=== PATIENT | female | born 1995 | race Two or more races ===

== ENCOUNTER 2016-07-14 02:09 | Inpatient (IN) | payer OTHER ==
--- NOTE | 2016-07-14 02:38 | PDOC ---
History of Present Illness - General History Source: Patient Exam Limitations: No Limitations - History of Present Illness Initial Comments: 07/14/16 03:07 The patient is a 20 year old female with no significant past medical history who presents to the ED with complaints of right breast swelling and redness for 2 days. The patient reports she got bilateral nipple piercings 6 months ago. She reports redness in her right breast 2 days ago and she cleaned the affected area with water and soap. She sates her symptoms progressively worsened and developed right breast swelling and pain. She states she removed both nipple piercings today. Denies fevers or chills. Denies chest pain or shortness of breath. Denies abdominal pain, nausea, vomiting, or diarrhea. Denies any other symptoms. <Belinda Montoya - Last Filed: 07/14/16 03:06> <Mary Basurto - Last Filed: 07/17/16 22:32> - General Chief Complaint: Abscess Boil Stated Complaint: ABSCESS/CYST Past History <Belinda Montoya - Last Filed: 07/14/16 03:06> - Psycho/Social/Smoking Cessation Hx Suicidal Ideation: No Smoking History: Never smoked Have you smoked in the past 12 months: No Hx Alcohol Use: No Drug/Substance Use Hx: No <Mary Basurto - Last Filed: 07/17/16 22:32> - Past Medical History Allergies/Adverse Reactions: Allergies Allergy/AdvReac Type Severity Reaction Status Date / Time No Known Allergies Allergy Verified 07/14/16 02:48 Home Medications: Ambulatory Orders Acetaminophen [Tylenol .Regular Strength -] 650 mg PO Q6H PRN #0 tablet Amoxicillin/Potassium Clav [Augmentin 875-125 Tablet] 1 each PO BID #14 tablet 07/16/16 Review of Systems - Review of Systems Able to Perform ROS?: Yes Comments:: 07/14/16 03:07 CONSTITUTIONAL: Absent: fever, chills, diaphoresis, generalized weakness, malaise, loss of appetite HEENT: Absent: rhinorrhea, nasal congestion, throat pain, throat swelling, difficulty swallowing, mouth swelling, ear pain, eye pain, visual Changes CARDIOVASCULAR: Absent: chest pain, syncope, palpitations, irregular heart rate, lightheadedness , peripheral edema RESPIRATORY: Absent: cough, shortness of breath, dyspnea with exertion, orthopnea, wheezing, stridor, hemoptysis GASTROINTESTINAL: Absent: abdominal pain, abdominal distension, nausea, vomiting, diarrhea, constipation, melena, hematochezia GENITOURINARY: Absent: dysuria, frequency, urgency, hesitancy, hematuria, flank pain, genital pain MUSCULOSKELETAL: + breast swelling, breast pain Absent: arthralgia, joint swelling SKIN: + breast redness Absent: rash, itching, pallor HEMATOLOGIC/IMMUNOLOGIC: Absent: easy bleeding, easy bruising, lymphadenopathy, frequent infections ENDOCRINE: Absent: unexplained weight gain, unexplained weight loss, heat intolerance, cold intolerance NEUROLOGIC: Absent: headache, focal weakness or paresthesias, dizziness, unsteady gait, seizure, mental status changes, bladder or bowel incontinence PSYCHIATRIC: Absent: anxiety, depression, suicidal or homicidal ideation, hallucinations. <Belinda Montoya - Last Filed: 07/14/16 03:06> *Physical Exam - Vital Signs Last Vital Signs Temp Pulse Resp BP Pulse Ox 98.8 F 113 H 19 139/91 100 07/14/16 02:24 07/14/16 02:24 07/14/16 02:24 07/14/16 02:24 07/14/16 02:24 - Physical Exam Comments: 07/14/16 03:07 GENERAL: Well developed, well nourished. Awake and alert. No acute distress. HEENT: Normocephalic, atraumatic. PERRLA, EOMI. No conjunctival pallor. Sclera are non- icteric. Moist mucous membranes. Oropharynx is clear. NECK: Supple. Full ROM. No JVD. Carotid pulses 2+ and symmetric, without bruits. No thyromegaly. NCo lymphadenopathy. CARDIOVASCULAR: Regular rate and rhythm. No murmurs, rubs, or gallops. Distal pulses are 2+ and symmetric. PULMONARY: No evidence of respiratory distress. Lungs clear to auscultation bilaterally. No wheezing, rales or rhonchi. ABDOMINAL: Soft. Non-tender. Non-distended. No rebound or guarding. No organomegaly. Normoactive bowel sounds. MUSCULOSKELETAL Normal range of motion at all joints. No bony deformities or tenderness. No CVA tenderness. EXTREMITIES: No cyanosis. No clubbing. No edema. No calf tenderness. SKIN: + redness surrounding right nipple, no streaking, no abscess/fluctuance, no puss. Warm and dry. Normal capillary refill. No rashes. No jaundice. NEUROLOGICAL: Alert, awake, appropriate. Cranial nerves 2-12 intact. No deficits to light touch and temperature in face, upper extremities and lower extremities. No motor deficits in the in face, upper extremities and lower extremities. Normoreflexic in the upper and lower extremities. Normal speech. Toes are down- going bilaterally. Gait is normal without ataxia. PSYCHIATRIC: Cooperative. Good eye contact. Appropriate mood and affect. <Belinda Montoya - Last Filed: 07/14/16 03:06> - Vital Signs Last Vital Signs Temp Pulse Resp BP Pulse Ox 98.8 F 113 H 19 139/91 100 07/14/16 02:24 07/14/16 02:24 07/14/16 02:24 07/14/16 02:24 07/14/16 02:24 <Mary Basurto - Last Filed: 07/17/16 22:32> ED Treatment Course - LABORATORY CBC & Chemistry Diagram: 07/16/16 07:17 07/15/16 08:32 <Mary Basurto - Last Filed: 07/17/16 22:32> Medical Decision Making - Medical Decision Making 07/17/16 22:30 Pt comes with right breast infection; states that the pain and redness began 3 days ago. Pt removed her nipple rings today, and the infection appears worse. Likely deep infection, as there was foreign hardware in the tissues. Pt will be admitted for sonogram of the area, as well as for IV antibiotics to make sure that the infection is being controlled prior to discharge, and for surgical drainage as needed. Pus oozing from the area. Pt will be admitted to the hospitalist's service. <Mary Basurto - Last Filed: 07/17/16 22:32> *DC/Admit/Observation/Transfer - Attestations Scribe Attestion: 07/14/16 03:07 Documentation prepared by Belinda Montoya, acting as medical device sales for Mary Basurto MD <Belinda Montoya - Last Filed: 07/14/16 03:06> - Discharge Dispostion Admit: Yes <Mary Basurto - Last Filed: 07/17/16 22:32> Diagnosis at time of Disposition: Breast abscess, Breast infection - Discharge Dispostion Disposition: VNS/HOME HEALTH CARE Condition at time of disposition: Improved - Prescriptions
[2016-07-14] MEDS ORDERED: AMPICILLIN NA/SULBACTAM NA 1.5 GM in SODIUM CHLORIDE 100 ML IVPB ONE (03:01)
[2016-07-14 03:14] LABS: BASOPHIL 0.5 % (0-2.0); EOSINOPHIL 0.2 % (0-4.5); MCH 28.2 pg (25.7-33.7); MCHC 32.8 g/dl (32.0-36.0); MEAN CELL VOLUME 85.9 fl (80-96); MEAN PLT VOLUME 10.1 fl (7.5-11.1); PLATELET COUNT 177 K/MM3 (134-434); RDW 14.1 % (11.6-15.6); WHITE BLOOD COUNT 12.8 K/mm3 (4.0-10.0)
[2016-07-14 03:29] LABS: INR 1.22 (0.82-1.09); PROTHROMBIN TIME (PATIENT) 13.5 SEC (9.98-11.88)
[2016-07-14 03:35] LABS: ALBUMIN 4.2 g/dl (3.4-5.0); ANION GAP 11 (8-16); BILIRUBIN,TOTAL 0.8 mg/dL (0.2-1.0); CALCIUM 9.5 mg/dL (8.5-10.1); CO2 24 mmol/L (21-32); COCKROFT - GAULT 128.5115; CREATININE 0.6 mg/dL (0.55-1.02); GLUCOSE,RANDOM 98 mg/dL (74-106); SGOT/AST 12 U/L (15-37); SGPT/ALT 15 U/L (12-78); TOT PROT 7.6 g/dl (6.4-8.2)
[2016-07-14] MEDS ORDERED: morphine CARPU-JECT 2 MG/1 ML DISP.SYRIN IVPUSH ONE ×2 (03:35→05:05)
[2016-07-14 03:36] LABS: ALK PHOS 85 U/L (45-117)
[2016-07-14] MEDS ORDERED: morphine CARPU-JECT 2 MG/1 ML DISP.SYRIN ONE ×2 (03:42→05:31)
[2016-07-14] MEDS ORDERED: TETANUS AND DIPHTHERIA TOXOID 0.5 ML DISP.SYRIN IM ONE (05:21)
--- NOTE | 2016-07-14 05:28 | HP ---
CHIEF COMPLAINT: right breast pain PCP: Hui Jimenez HISTORY OF PRESENT ILLNESS: This is a 20 year old woman without significant past medical history who presents to the ED with complaints of right breast swelling and redness for 2 days. The patient reports she got bilateral nipple piercings 6 months ago. She reports redness in her right breast 2 days ago and she cleaned the affected area with water and soap. She sates her symptoms progressively worsened and developed right breast swelling and pain. She states she removed both nipple piercings today. ER course was notable for: (1) leukocytosis Recent Travel: denies PAST MEDICAL HISTORY: denies PAST SURGICAL HISTORY: denies Social History: Smoking: denies Alcohol: denies Drugs: denies Allergies No Known Allergies Allergy (Verified 07/14/16 02:48) HOME MEDICATIONS: Home Medications 3 Medication Instructions Recorded NK [No Known Home Medication] 07/14/16 REVIEW OF SYSTEMS CONSTITUTIONAL: Absent: fever, chills, diaphoresis, generalized weakness, malaise, loss of appetite, weight change HEENT: Absent: rhinorrhea, nasal congestion, throat pain, throat swelling, difficulty swallowing, mouth swelling, ear pain, eye pain, visual changes CARDIOVASCULAR: Absent: chest pain, syncope, palpitations, irregular heart rate, lightheadedness , peripheral edema RESPIRATORY: Absent: cough, shortness of breath, dyspnea with exertion, orthopnea, wheezing, stridor, hemoptysis GASTROINTESTINAL: Absent: abdominal pain, abdominal distension, nausea, vomiting, diarrhea, constipation, melena, hematochezia GENITOURINARY: Absent: dysuria, frequency, urgency, hesitancy, hematuria, flank pain, genital pain MUSCULOSKELETAL: Absent: myalgia, arthralgia, joint swelling, back pain, neck pain SKIN: swelling and redness to right breast Absent: rash, itching, pallor HEMATOLOGIC/IMMUNOLOGIC: Absent: easy bleeding, easy bruising, lymphadenopathy, frequent infections ENDOCRINE: Absent: unexplained weight gain, unexplained weight loss, heat intolerance, cold intolerance NEUROLOGIC: bitemporal headache Absent: focal weakness or paresthesias, dizziness, unsteady gait, seizure, mental status changes, bladder or bowel incontinence PSYCHIATRIC: Absent: anxiety, depression, suicidal or homicidal ideation, hallucinations. PHYSICAL EXAMINATION GENERAL: Awake, alert, and fully oriented, in no acute distress. HEAD: Normal with no signs of trauma. EYES: Pupils equal, round and reactive to light, extraocular movements intact, sclera anicteric, conjunctiva clear. No lid lag. EARS, NOSE, THROAT: Ears normal, nares patent, oropharynx clear without exudates. Moist mucous membranes. NECK: Normal range of motion, supple without lymphadenopathy, JVD, or masses. LUNGS: Breath sounds equal, clear to auscultation bilaterally. No wheezes, and no crackles. No accessory muscle use. HEART: Regular rate and rhythm, normal S1 and S2 without murmur, rub or gallop. ABDOMEN: Soft, nontender, not distended, normoactive bowel sounds, no guarding, no rebound, no masses. No hepatomegaly or splenomegaly. MUSCULOSKELETAL: Normal range of motion at all joints. No bony deformities or tenderness. No CVA tenderness. UPPER EXTREMITIES: 2+ pulses, warm, well-perfused. No cyanosis. No clubbing. No peripheral edema. LOWER EXTREMITIES: 2+ pulses, warm, well-perfused. No calf tenderness. No peripheral edema. NEUROLOGICAL: Cranial nerves II-XII intact. Normal speech. Normal gait. PSYCHIATRIC: Cooperative. Good eye contact. Appropriate mood and affect. SKIN: Warm, dry, normal turgor, no rashes or lesions noted, normal capillary refill. Erythema to right breast with thick yellow discharge from nipple. No streaking present. Breast: Erythema to right breast with thick yellow discharge from nipple. No streaking present. Erythematous area firm and tender to light palpation. Left breast non tender. P/E done in presence of MOHINI Schilling. ASSESSMENT/PLAN: A: This is a 20 yo woman without significant PMH who presents with 2 days of right breast tenderness. No streaking in the breast tissue. Will treat with clinda to cover MRSA as well as MSSA pending cx. P: cellulitis vs abscess of right breast -breast u/s pending -cx discharge -clindamycin to cover MRSA Leukocytosis -trend CBC F/E/N -regular diet PPX -td -OOB Dispo- Patient needs observation for her acute medical conditions. Code Status- FULL CODE Visit type - Emergency Visit Emergency Visit: Yes ED Registration Date: 07/14/16 Care time: The patient presented to the Emergency Department on the above date and was hospitalized for further evaluation of their emergent condition. - New Patient This patient is new to me today: Yes Date on this admission: 07/14/16 - Critical Care Critical Care patient: No
[2016-07-14] MEDS ORDERED: AMPICILLIN NA/SULBACTAM NA 1.5 GM in SODIUM CHLORIDE 100 ML IVPB SCH (09:00)
[2016-07-14] MEDS ORDERED: CLINDAMYCIN 600MG PREMIX IVPB 50 ML IVPB SCH (10:00)
[2016-07-14] MEDS ORDERED: CLINDAMYCIN 600MG PREMIX IVPB 50 ML IVPB ONE (11:00)
[2016-07-14] MEDS ORDERED: OXYCODONE/APAP 5/325MG COMBO TABLET PO PRN (11:54)
[2016-07-14] MEDS ORDERED: oxyCODONE HCL 5 MG TABLET PO PRN (12:14)
[2016-07-14] MEDS ORDERED: ACETAMINOPHEN 325 MG TABLET (FP) PO PRN (12:14)
--- NOTE | 2016-07-14 13:11 | PN ---
Progress Note (short form) - Note Progress Note: ID Consult dictated R breast cellulitis/ abscess Leukocytosis,possible sepsis BC x2 Empiric unasyn/ vancomycin Surgical evaluation Mother present at bedside. Case discussed.
[2016-07-14] MEDS ORDERED: VANCOMYCIN 1 GRAM (PRE-DOCKED) 250 ML IVPB ONE (14:13)
[2016-07-14] MEDS: VANCOMYCIN 1 GRAM (PRE-DOCKED) 250 ML IVPB SCH (14:18)
[2016-07-14] MEDS ORDERED: SODIUM CHLORIDE 1,000 ML IV STA (16:23)
--- NOTE | 2016-07-14 16:27 | HOSP ---
Subjective - Review of Symptoms Events since last encounter: Patient seen and evaluated in the ED. Mother at bedside. Right-breast pain and soreness. Denies fever, sweats, chills or other constitutional symptoms. HEENT: Yes: Other (Right breast pain) Physical Examination Vital Signs: Vital Signs Temperature 98.5 F 07/14/16 07:15 Pulse Rate 84 07/14/16 07:15 Respiratory Rate 18 07/14/16 07:15 Blood Pressure 116/74 07/14/16 07:15 O2 Sat by Pulse Oximetry (%) 99 07/14/16 07:15 Constitutional: Yes: Well Nourished, No Distress, Calm Eyes: Yes: WNL Cardiovascular: Yes: WNL, Regular Rate and Rhythm, S1, S2 Respiratory: Yes: Regular, CTA Bilaterally Breast(s): Yes: Left (No swelling but very minor red streaking observed extending outward from nipple; no obvious break in the skin), Right (Nipple is swollen, circumferential induration, erythema, exquisitely tender; no exudate observed; no obvious break in skin) Musculoskeletal: Yes: WNL Extremities: Yes: WNL Edema: No Peripheral Pulses WNL: Yes Neurological: Yes: Alert, Oriented ...Motor Strength: WNL Labs: Laboratory Results - last 24 hr 07/14/16 07/14/16 07/14/16 03:06 03:06 03:06 WBC 12.8 H RBC 4.37 Hgb 12.3 Hct 37.6 MCV 85.9 MCHC 32.8 RDW 14.1 Plt Count 177 MPV 10.1 Neutrophils % 75.0 Lymphocytes % 13.4 Monocytes % 10.9 H Eosinophils % 0.2 Basophils % 0.5 INR 1.22 H PTT (Actin FS) 32.8 Sodium Potassium Chloride Carbon Dioxide Anion Gap BUN Creatinine Creat Clearance w eGFR Random Glucose Calcium Total Bilirubin AST ALT Alkaline Phosphatase Total Protein Albumin Urine HCG, Qual 07/14/16 07/14/16 03:06 03:47 WBC RBC Hgb Hct MCV MCHC RDW Plt Count MPV Neutrophils % Lymphocytes % Monocytes % Eosinophils % Basophils % INR PTT (Actin FS) Sodium 141 Potassium 3.7 Chloride 106 Carbon Dioxide 24 Anion Gap 11 BUN 15 Creatinine 0.6 Creat Clearance w eGFR > 60 Random Glucose 98 Calcium 9.5 Total Bilirubin 0.8 AST 12 L ALT 15 Alkaline Phosphatase 85 Total Protein 7.6 Albumin 4.2 Urine HCG, Qual Negative Hospitalist Encounter Assessment: Right breast abscess and cellulitis --had bilateral nipple piercing 6 months ago; 2 days ago observed redness to right nipple, yesterday nipple became hard, red, and very painful --patient removed jewelry before coming to hospital; MOTHER IS NOT AWARE OF PIERCING, DO NOT DISCUSS IN HER PRESENCE --US shows multiloculated retroareolar mass 3.1 x 2.9 x 2.0cm, suspicious for abscess --seen by ID, ordered vanco and unasyn; vanco was started in ED (not on a pump) and patient developed Red Man Syndrome; infusion stopped, give NS x 1L, hemodynamically stable --surgery Dr. Brady will see patient in am; NPO after midnight Left breast erythema --very minor red streaks observed on exam; will monitor, on antibiotics
[2016-07-14 17:24] VITALS: BMI 21.6
[2016-07-14] MEDS: AMPICILLIN NA/SULBACTAM NA 100 ML IVPB SCH ×2 (18:01→22:18)
[2016-07-14] MEDS ORDERED: PT OWN MED DRAWER 7, Y5N ONE (22:03)
--- NOTE | 2016-07-14 23:10 | CONS ---
DATE OF CONSULTATION: DATE OF DICTATION: 07/14/2016 INFECTIOUS DISEASE CONSULTATION HISTORY OF PRESENT ILLNESS: A 20-year-old healthy female evaluated for right breast cellulitis and abscess. The patient presented to the hospital with a 2-day history of worsening right breast swelling and redness. She reports having nipple piercing approximately 6 months prior to admission, and removed the piercings today after worsening cellulitis of the right breast. She presented to the emergency room, where she was noted to have an elevated white blood cell count. A sonogram was performed of the right breast and revealed a multiloculated complex mass measuring approximately 3.1 x 2.9 x 2.0 cm, suspicious for an abscess. She denies any fever or chills. Patient denies previous a series of soft tissue infection requiring hospitalization. Denies history of MRSA infection. She is nondiabetic. PAST MEDICAL HISTORY: Negative. ALLERGIES: No known allergy. LABORATORY DATA: White count 12.8, hematocrit 37.6, platelet count 177, BUN 15, creatinine 0.6. Culture pending. PHYSICAL EXAMINATION: General: She is awake and alert. She is not acutely toxic appearing. Vital signs: Temperature 97.5, blood pressure 116/74, pulse 84 regular, respirations 20 per minute. HEENT: Sclerae anicteric. Cardiovascular: Heart sounds S1, S2. Respiratory: Lungs clear. Breast: Examination of the right breast, there is swelling of the areola, there is an area of erythema present at the 2 o'clock position with tenderness to outpatient and slight fluctuance. There is no lymphangitic streaking. No expressible pus, no nipple discharge, no right axillary adenopathy. Left breast appears normal. Abdomen: Soft. Nontender. Extremities: Negative for edema. IMPRESSION: 1. Right breast cellulitis/soft tissue abscess. 2. Leukocytosis, possible sepsis secondary to skin source. Obtain blood cultures. Empiric antibiotic coverage with vancomycin and Unasyn. Surgical evaluation for possible incision and drainage. Case was discussed with patient's mother who was present at the bedside at the time of the examination in the emergency room. Thank you for the kind referral. JOSEPH BRADY M.D. SONDRA/[id number]
[2016-07-15] MEDS: VANCOMYCIN 1 GRAM (PRE-DOCKED) 250 ML IVPB SCH ×2 (01:16→13:34)
[2016-07-15] MEDS: AMPICILLIN NA/SULBACTAM NA 100 ML IVPB SCH ×4 (03:18→21:19)
[2016-07-15] MEDS ORDERED: LIDOCAINE HCL 1%, 10 MG/ML (20ML VIAL) ONE (07:49)
[2016-07-15] MEDS ORDERED: BUPIVACAINE HCL/PF 0.5% (5MG/ML) 10 ML VIAL ONE (08:04)
--- NOTE | 2016-07-15 08:27 | CONSULT ---
- Consultation REQUESTING PROVIDER: Siddharth HUMAN [employer] FILE CLERK CONSULT REQUEST: We have been asked to surgically evaluate this patient for evaluation and management of a right breast abscess. PCP:Vannesa Gibbs HISTORY OF PRESENT ILLNESS:# days of progressive right breast pain and swelling associated w/ a nipple piercing. PMHx: none PSHx: none Home Medications Medication Instructions Recorded NK [No Known Home Medication] 07/14/16 Allergies Allergy/AdvReac Type Severity Reaction Status Date / Time No Known Allergies Allergy Verified 07/14/16 02:48 REVIEW OF SYSTEMS: CONSTITUTIONAL: Absent: fever, chills, diaphoresis, generalized weakness, malaise, loss of appetite, weight change CARDIOVASCULAR: Absent: chest pain, syncope, palpitations, irregular heart rate, lightheadedness , peripheral edema RESPIRATORY: Absent: cough, shortness of breath, dyspnea with exertion, wheezing, stridor, hemoptysis GASTROINTESTINAL: Absent: abdominal pain, abdominal distension, nausea, vomiting, diarrhea, constipation, melena, hematochezia GENITOURINARY: Absent: dysuria, frequency, urgency, hesitancy, hematuria, flank pain, genital pain MUSCULOSKELETAL: Absent: myalgia, arthralgia, joint swelling, back pain, neck pain SKIN: Absent: rash, itching, pallor HEMATOLOGIC/IMMUNOLOGIC: Absent: easy bleeding, easy bruising, lymphadenopathy NEUROLOGIC: Absent: headache, focal weakness, paresthesias, dizziness, unsteady gait, seizure, mental status changes, bladder or bowel incontinence PSYCHIATRIC: Absent: anxiety, depression, suicidal or homicidal ideation, hallucinations. PHYSICAL EXAM: GENERAL: Awake, alert, and fully oriented, in no acute distress. ABDOMEN: Soft, nontender, not distended, normoactive bowel sounds, no guarding, no rebound, no masses. No organomegaly. MUSCULOSKELETAL: Normal ROM at all joints. No bony deformities or tenderness. No CVA tenderness. UPPER EXTREMITIES: 2+ pulses, warm, well-perfused. No cyanosis. Cap refill <2 seconds. No peripheral edema. LOWER EXTREMITIES: 2+ pulses, warm, well-perfused. No calf tenderness. No peripheral edema. NEUROLOGICAL: Normal speech, gait not observed. PSYCH: Cooperative. Good eye contact. Appropriate mood and affect. SKIN: Warm, dry, normal turgor, no rashes or lesions noted. Right breast: Clinical abscess. Vital Signs Temperature 99.2 F 07/15/16 05:55 Pulse Rate 100 H 07/15/16 05:55 Respiratory Rate 20 07/15/16 05:55 Blood Pressure 111/65 07/15/16 05:55 O2 Sat by Pulse Oximetry (%) 99 07/15/16 00:49 Lab Results WBC 12.8 K/mm3 (4.0-10.0) H 07/14/16 03:06 RBC 4.37 M/mm3 (3.60-5.2) 07/14/16 03:06 Hgb 12.3 GM/dL (10.7-15.3) 07/14/16 03:06 Hct 37.6 % (32.4-45.2) 07/14/16 03:06 MCV 85.9 fl (80-96) 07/14/16 03:06 MCHC 32.8 g/dl (32.0-36.0) 07/14/16 03:06 RDW 14.1 % (11.6-15.6) 07/14/16 03:06 Plt Count 177 K/MM3 (134-434) 07/14/16 03:06 Sodium 141 mmol/L (136-145) 07/14/16 03:06 Potassium 3.7 mmol/L (3.5-5.1) 07/14/16 03:06 Chloride 106 mmol/L (98-107) 07/14/16 03:06 Carbon Dioxide 24 mmol/L (21-32) 07/14/16 03:06 Anion Gap 11 (8-16) 07/14/16 03:06 BUN 15 mg/dL (7-18) 07/14/16 03:06 Creatinine 0.6 mg/dL (0.55-1.02) 07/14/16 03:06 Random Glucose 98 mg/dL (74-106) 07/14/16 03:06 Calcium 9.5 mg/dL (8.5-10.1) 07/14/16 03:06 INR 1.22 (0.82-1.09) H 07/14/16 03:06 labs/imaging reviewed IMP: right breast abscess PLAN: I and D under general anesthesia; r/b/t/a's d/w the patient; informed consent obtained. Rufino Brady MD FACS Visit type - Case Type Case Type: ED Admission - Emergency Emergency Visit: Yes ED Registration Date: 07/14/16 Care time: The patient presented to the Emergency Department on the above date and was hospitalized for further evaluation of their emergent condition. - New patient This patient is new to me today: Yes Date on this admission: 07/15/16 - Critical Care Critical Care patient: No
[2016-07-15 08:35] LABS: BASOPHIL 0.5 % (0-2.0); EOSINOPHIL 0.2 % (0-4.5); MCH 28.9 pg (25.7-33.7); MCHC 33.6 g/dl (32.0-36.0); MEAN PLT VOLUME 9.5 fl (7.5-11.1); NEUTROPHILS 78.5 % (42.8-82.8); PLATELET COUNT 202 K/MM3 (134-434); RDW 14.1 % (11.6-15.6); WHITE BLOOD COUNT 14.8 K/mm3 (4.0-10.0)
[2016-07-15 09:04] LABS: ALBUMIN 3.8 g/dl (3.4-5.0); ANION GAP 9 (8-16); CALCIUM 9.5 mg/dL (8.5-10.1); CO2 25 mmol/L (21-32); GLUCOSE,RANDOM 87 mg/dL (74-106); MAGNESIUM 2.1 mg/dL (1.8-2.4)
[2016-07-15 09:07] LABS: ALK PHOS 83 U/L (45-117); CREATININE 0.6 mg/dL (0.55-1.02); SGOT/AST 12 U/L (15-37); SGPT/ALT 13 U/L (12-78); TOT PROT 7.2 g/dl (6.4-8.2)
[2016-07-15] MEDS ORDERED: MIDAZOLAM HCL 2 MG/2 ML SINGLE DOSE VIAL ONE (09:08)
[2016-07-15] MEDS ORDERED: DEXAMETHASONE SOD PHOSPHATE 4 MG/1 ML VIAL ONE (09:18)
[2016-07-15] MEDS ORDERED: PROPOFOL 20 ML ONE (09:20)
--- NOTE | 2016-07-15 09:45 | OP ---
Operative Note - Note: Operative Date: 07/15/16 Pre-Operative Diagnosis: right breast abscess Operation: incision/drainage right breast abscess Findings: right breast abscess Surgeon: Rufino Brady Analysis Lead: Becky Nobles Anesthesia: General Specimens Removed: culture only Estimated Blood Loss (mls): 5 Drains & Tubes with Location: myah drain
--- NOTE | 2016-07-15 09:51 | SURG ---
Surgery Applications Development Consultant Note Applications Development Consultant: Becky Nobles PA-C Date of Service: 07/15/16 Diagnosis: right breast abscess Procedure: incision/drainage right breast abscess I was present for the entirety of the operative procedure. For further detail, please refer to operative report. Visit type - Case Type Case Type: ED Admission - New patient This patient is new to me today: Yes Date on this admission: 07/15/16
[2016-07-15] MEDS ORDERED: ONDANSETRON 4 MG/2 ML VIAL IVPUSH PRN (09:54)
[2016-07-15] MEDS ORDERED: HYDROmorphone HCL CARPU-JECT 2 MG/1 ML DISP.SYRIN ONE (09:55)
[2016-07-15] MEDS: HYDROmorphone HCL CARPU-JECT 1 MG/1 ML DISP.SYRIN IVPUSH PRN ×2 (09:57→10:30)
[2016-07-15] MEDS ORDERED: morphine CARPU-JECT 2 MG/1 ML DISP.SYRIN IVPUSH PRN (10:10)
[2016-07-15] MEDS: LACTATED RINGERS SOLUTION 1,000 ML IV SCH (11:00)
--- NOTE | 2016-07-15 11:02 | PN ---
Progress Note, Physician History of Present Illness: S/P I&D R breast abscess Seen In PACU No c/o pain Afebrile Developed pruritis/ erythema after vancomycin infusion WBC increased Cultures pending - Current Medication List Current Medications: Active Medications Acetaminophen (Tylenol -) 325 mg PO Q6H PRN PRN Reason: PAIN 6-10 Hydromorphone HCl (Dilaudid Injection -) 1 mg IVPUSH [id number] PRN PRN Reason: PAIN Stop: 07/18/16 09:55 Last Admin: 07/15/16 10:30 Dose: 1 mg Ampicillin Sodium/Sulbactam Sodium (Unasyn 1.5 Gm (Pre-Docked)) 100 mls @ 200 mls/hr IVPB Q6H-IV WILLIAM Vancomycin HCl (Vancomycin (Pre-Docked)) 250 mls @ 200 mls/hr IVPB BID@0200, 1400 WILLIAM Lactated Ringer's (Lactated Ringers Solution) 1,000 mls @ 100 mls/hr IV ASDIR WILLIAM Morphine Sulfate (Morphine Injection -) 1 mg IVPUSH Q4H PRN PRN Reason: PAIN LEVEL 6-10 Ondansetron HCl (Zofran Injection) 4 mg IVPUSH Q6H PRN PRN Reason: NAUSEA AND/OR VOMITING Stop: 07/15/16 15:55 Oxycodone HCl (Roxicodone -) 5 mg PO Q6H PRN PRN Reason: PAIN 6-10 - Objective Vital Signs: Vital Signs Temperature 98.5 F 07/15/16 09:51 Pulse Rate 92 H 07/15/16 10:30 Respiratory Rate 18 07/15/16 10:30 Blood Pressure 127/78 07/15/16 10:30 O2 Sat by Pulse Oximetry (%) 100 07/15/16 10:30 Constitutional: Yes: No Distress Eyes: Yes: Conjunctiva Clear Cardiovascular: Yes: Regular Rate and Rhythm, S1, S2 Respiratory: Yes: CTA Bilaterally Gastrointestinal: Yes: Normal Bowel Sounds, Soft. No: Tenderness Breast(s): Yes: Other (post op dressing in place) Edema: No Labs: CBC, BMP 07/15/16 08:32 07/15/16 08:32 INR, PTT INR 1.22 (0.82-1.09) H 07/14/16 03:06 Assessment/Plan S/P I&D R breast abscess Cellulitis R breast Red man syndrome Await c/s Continue unasyn/ vancomycin Premedicate vancomycin with benadryl, infuse over 90min
[2016-07-15] MEDS: ACETAMINOPHEN 325 MG TABLET (FP) PO PRN (11:26)
[2016-07-15] MEDS: oxyCODONE HCL 5 MG TABLET PO PRN (11:27)
[2016-07-15] MEDS: diphenhydrAMINE HCL 25 MG CAPSULE (FP) PO SCH (13:33)
--- NOTE | 2016-07-15 13:59 | PN ---
Progress Note (short form) - Note Progress Note: Subjective: The patient was seen and examined at the bedside, she is s/p I&D right breast abscess. The patient has no complaints at this time. Current Medications Generic Name Dose Route Start Last Admin Trade Name Freq PRN Reason Stop Dose Admin Acetaminophen 325 mg 07/15/16 10:01 07/15/16 11:26 Tylenol - PO 325 mg Q6H PRN Administration PAIN 6-10 Diphenhydramine HCl 25 mg 07/15/16 13:30 07/15/16 13:33 Benadryl - PO 25 mg Q12H WILLIAM Administration Hydromorphone HCl 1 mg 07/15/16 09:54 07/15/16 10:30 Dilaudid Injection - IVPUSH 07/18/16 09:55 1 mg [id number] PRN Administration PAIN Ampicillin Sodium/Sulbactam Sodium 100 mls @ 200 mls/hr 07/15/16 15:00 Unasyn 1.5 Gm (Pre-Docked) IVPB Q6H-IV WILLIAM Vancomycin HCl 250 mls @ 200 mls/hr 07/15/16 14:00 07/15/16 13:34 Vancomycin (Pre-Docked) IVPB 200 mls/hr BID@0200,1400 WILLIAM Administration Lactated Ringer's 1,000 mls @ 100 mls/hr 07/15/16 10:15 07/15/16 11:00 Lactated Ringers Solution IV 0 mls ASDIR WILLIAM Administration Morphine Sulfate 1 mg 07/15/16 10:10 Morphine Injection - IVPUSH Q4H PRN PAIN LEVEL 6-10 Ondansetron HCl 4 mg 07/15/16 09:54 Zofran Injection IVPUSH 07/15/16 15:55 Q6H PRN NAUSEA AND/OR VOMITING Oxycodone HCl 5 mg 07/15/16 10:01 07/15/16 11:27 Roxicodone - PO 5 mg Q6H PRN Administration PAIN 6-10 Objective: Vital Signs Period Temp Pulse Resp BP Sys/Alarcon Pulse Ox Last 24 Hr 98.2 F-99.2 F 70-108 12-23 102-140/61-94 98-100 Physical Exam: General: NAD, A&Ox3 Lungs: CTA bilaterally Breast: Right breast dressing, c/d/i Heart: RRR, S1S2 Abd: Soft, non-tender, non-distended. Normoactive bowel sounds Ext: Warm, well-perfused. 2+ DP/PT bilaterally Neuro: CN 2-12 intact CBCD WBC 14.8 K/mm3 (4.0-10.0) H 07/15/16 08:32 RBC 4.49 M/mm3 (3.60-5.2) 07/15/16 08:32 Hgb 13.0 GM/dL (10.7-15.3) 07/15/16 08:32 Hct 38.6 % (32.4-45.2) 07/15/16 08:32 MCV 86.0 fl (80-96) 07/15/16 08:32 MCHC 33.6 g/dl (32.0-36.0) 07/15/16 08:32 RDW 14.1 % (11.6-15.6) 07/15/16 08:32 Plt Count 202 K/MM3 (134-434) 07/15/16 08:32 MPV 9.5 fl (7.5-11.1) 07/15/16 08:32 CMP Sodium 137 mmol/L (136-145) 07/15/16 08:32 Potassium 3.9 mmol/L (3.5-5.1) 07/15/16 08:32 Chloride 103 mmol/L (98-107) 07/15/16 08:32 Carbon Dioxide 25 mmol/L (21-32) 07/15/16 08:32 Anion Gap 9 (8-16) 07/15/16 08:32 BUN 8 mg/dL (7-18) D 07/15/16 08:32 Creatinine 0.6 mg/dL (0.55-1.02) 07/15/16 08:32 Creat Clearance w eGFR > 60 (>60) 07/15/16 08:32 Random Glucose 87 mg/dL (74-106) 07/15/16 08:32 Calcium 9.5 mg/dL (8.5-10.1) 07/15/16 08:32 Total Bilirubin 1.0 mg/dL (0.2-1.0) D 07/15/16 08:32 AST 12 U/L (15-37) L 07/15/16 08:32 ALT 13 U/L (12-78) 07/15/16 08:32 Alkaline Phosphatase 83 U/L (45-117) 07/15/16 08:32 Total Protein 7.2 g/dl (6.4-8.2) 07/15/16 08:32 Albumin 3.8 g/dl (3.4-5.0) 07/15/16 08:32 Microbiology 07/14/16 05:15 Breast - Right Gram Stain - Final 07/14/16 05:15 Breast - Right Wound Culture - Preliminary Beta Hem Streptococcus Group C Assessment: This is a 20 year old female with no significant PMHx who presented to the ED with right breast swelling and erythema Plan: 1) ID: Sepsis 2/2 right breast abscess and cellulitis - S/p I&D 07/15 with myah placement - B/l nipple piercings removed prior to arriving in the ED - Patient developed red man syndrome to Vancomycin - Will continue vancomycin and premedicate with Benadryl and run vanco over 90 minutes - Continue Unasyn - Awaiting final c/s - Appreciate surgery consult - Appreciate ID consult 2) F/E/N: - Monitor electrolytes - Regular diet 3) Prophylaxis: - OOB ambulating - SCDs bilaterally 4) Dispo: - Requires continued inpatient care CODE STATUS: FULL CODE Visit type - Emergency Visit Emergency Visit: Yes ED Registration Date: 07/14/16 Care time: The patient presented to the Emergency Department on the above date and was hospitalized for further evaluation of their emergent condition. - New Patient This patient is new to me today: Yes Date on this admission: 07/15/16 - Critical Care Critical Care patient: No
--- NOTE | 2016-07-15 14:20 | EKG ---
Test Reason : Blood Pressure : / mmHG Vent. Rate : 099 BPM Atrial Rate : 099 BPM P-R Int : 126 ms QRS Dur : 072 ms QT Int : 326 ms P-R-T Axes : 074 006 027 degrees QTc Int : 418 ms NORMAL SINUS RHYTHM POSSIBLE LEFT ATRIAL ENLARGEMENT BORDERLINE ECG NO PREVIOUS ECGS AVAILABLE Confirmed by FRACISCO CASTAÑEDA, BEE ([id number]) on 07/15/2016 2:19:34 PM Referred By: Confirmed By:BEE YAP MD
[2016-07-15] MEDS ORDERED: PT OWN MED DRAWER 7, Y5N ONE (15:07)
[2016-07-16] MEDS: diphenhydrAMINE HCL 25 MG CAPSULE (FP) PO SCH ×2 (02:00→14:51)
[2016-07-16] MEDS: AMPICILLIN NA/SULBACTAM NA 100 ML IVPB SCH ×3 (02:09→14:51)
[2016-07-16] MEDS: VANCOMYCIN 1 GRAM (PRE-DOCKED) 250 ML IVPB SCH ×3 (02:48→15:13)
[2016-07-16 08:09] LABS: BASOPHIL 0.3 % (0-2.0); EOSINOPHIL 0.5 % (0-4.5); MCH 28.8 pg (25.7-33.7); MCHC 33.7 g/dl (32.0-36.0); MEAN CELL VOLUME 85.4 fl (80-96); MEAN PLT VOLUME 10.2 fl (7.5-11.1); NEUTROPHILS 72.5 % (42.8-82.8); PLATELET COUNT 179 K/MM3 (134-434); RDW 13.7 % (11.6-15.6); WHITE BLOOD COUNT 9.8 K/mm3 (4.0-10.0)
[2016-07-16] MEDS: oxyCODONE HCL 5 MG TABLET PO PRN (08:43)
[2016-07-16] MEDS: ACETAMINOPHEN 325 MG TABLET (FP) PO PRN (08:44)
--- NOTE | 2016-07-16 08:48 | PN ---
Progress Note (short form) - Note Progress Note: Attending Surgeon POD#1 c/o pain VSS AF wound-open and w/serous drainage; Arnie drain in place; STS a little less. WBC down to normal Cultures pending IMP:doing well PLAN: dressing changed; continue present tx. Rufino Brady MD FACS
--- NOTE | 2016-07-16 13:58 | PN ---
Progress Note (short form) - Note Progress Note: Anesthesia postop note 20 y/o F s/p GA for I&D od breast abscess POD#1, vss, aaox3, pain well controlled No anesthesia complications.
--- NOTE | 2016-07-16 14:13 | PN ---
Progress Note (short form) - Note Progress Note: Subjective: The patient was seen and examined at the bedside, she reports mild right breast discomfort Current Medications Generic Name Dose Route Start Last Admin Trade Name Crispin PRN Reason Stop Dose Admin Acetaminophen 325 mg 07/15/16 10:01 07/16/16 08:44 Tylenol - PO 325 mg Q6H PRN Administration PAIN 6-10 Diphenhydramine HCl 25 mg 07/15/16 13:30 07/16/16 02:00 Benadryl - PO Not Given Q12H WILLIAM Hydromorphone HCl 1 mg 07/15/16 09:54 07/15/16 10:30 Dilaudid Injection - IVPUSH 07/18/16 09:55 1 mg [id number] PRN Administration PAIN Ampicillin Sodium/Sulbactam Sodium 100 mls @ 200 mls/hr 07/15/16 15:00 08:36 Unasyn 1.5 Gm (Pre-Docked) IVPB 200 mls/hr Q6H-IV WILLIAM Administration Vancomycin HCl 250 mls @ 200 mls/hr 07/15/16 14:00 07/16/16 02:48 Vancomycin (Pre-Docked) IVPB 200 mls/hr BID@0200,1400 WILLIAM Administration Lactated Ringer's 1,000 mls @ 100 mls/hr 07/15/16 10:15 07/15/16 11:00 Lactated Ringers Solution IV 0 mls ASDIR WILLIAM Administration Morphine Sulfate 1 mg 07/15/16 10:10 Morphine Injection - IVPUSH Q4H PRN PAIN LEVEL 6-10 Oxycodone HCl 5 mg 07/15/16 10:01 07/16/16 08:43 Roxicodone - PO 5 mg Q6H PRN Administration PAIN 6-10 Objective: Vital Signs Period Temp Pulse Resp BP Sys/Alarcon Pulse Ox Last 24 Hr 97.7 F-98.8 F 72-82 18-20 99-108/53-69 99-100 Physical Exam: General: NAD, A&Ox3 Lungs: CTA bilaterally Breast: Right breast dressing, c/d/i Heart: RRR, S1S2 Abd: Soft, non-tender, non-distended. Normoactive bowel sounds Ext: Warm, well-perfused. 2+ DP/PT bilaterally Neuro: CN 2-12 intact CBCD WBC 9.8 K/mm3 (4.0-10.0) D 07/16/16 07:17 RBC 4.02 M/mm3 (3.60-5.2) 07/16/16 07:17 Hgb 11.6 GM/dL (10.7-15.3) D 07/16/16 07:17 Hct 34.4 % (32.4-45.2) 07/16/16 07:17 MCV 85.4 fl (80-96) 07/16/16 07:17 MCHC 33.7 g/dl (32.0-36.0) 07/16/16 07: RDW 13.7 % (11.6-15.6) 07/16/16 07:17 Plt Count 179 K/MM3 (134-434) 07/16/16 07:17 MPV 10.2 fl (7.5-11.1) 07/16/16 07:17 CMP Sodium 137 mmol/L (136-145) 07/15/16 08:32 Potassium 3.9 mmol/L (3.5-5.1) 07/15/16 08:32 Chloride 103 mmol/L (98-107) 07/15/16 08:32 Carbon Dioxide 25 mmol/L (21-32) 07/15/16 08:32 Anion Gap 9 (8-16) 07/15/16 08:32 BUN 8 mg/dL (7-18) D 07/15/16 08:32 Creatinine 0.6 mg/dL (0.55-1.02) 07/15/16 08:32 Creat Clearance w eGFR > 60 (>60) 07/15/16 08:32 Random Glucose 87 mg/dL (74-106) 07/15/16 08:32 Calcium 9.5 mg/dL (8.5-10.1) 07/15/16 08:32 Total Bilirubin 1.0 mg/dL (0.2-1.0) D 07/15/16 08:32 AST 12 U/L (15-37) L 07/15/16 08:32 ALT 13 U/L (12-78) 07/15/16 08:32 Alkaline Phosphatase 83 U/L (45-117) 07/15/16 08:32 Total Protein 7.2 g/dl (6.4-8.2) 07/15/16 08:32 Albumin 3.8 g/dl (3.4-5.0) 07/15/16 08:32 Microbiology 07/15/16 10:00 Breast - Right Gram Stain - Final 07/15/16 10:00 Breast - Right Wound Culture - Preliminary Beta Hem Streptococcus Group C 07/14/16 05:15 Breast - Right Gram Stain - Final 07/14/16 05:15 Breast - Right Wound Culture - Final Beta Hem Streptococcus Group C 07/14/16 18:35 Blood - Peripheral Venous Blood Culture - Preliminary NO GROWTH OBTAINED AFTER 24 HOURS, INCUBATION TO CONTINUE FOR 4 DAYS. 07/14/16 18:40 Blood - Peripheral Venous Blood Culture - Preliminary NO GROWTH OBTAINED AFTER 24 HOURS, INCUBATION TO CONTINUE FOR 4 DAYS. Assessment: This is a 20 year old female with no significant PMHx who presented to the ED with right breast swelling and erythema Plan: 1) ID: Sepsis 2/2 right breast abscess and cellulitis - S/p I&D 07/15 with myah placement - B/l nipple piercings removed prior to arriving in the ED - Patient developed red man syndrome to Vancomycin - Will continue vancomycin and premedicate with Benadryl and run vanco over 90 minutes - Continue Unasyn - Awaiting final c/s - Appreciate surgery consult - Appreciate ID consult 2) F/E/N: - Monitor electrolytes - Regular diet 3) Prophylaxis: - OOB ambulating - SCDs bilaterally 4) Dispo: - Requires continued inpatient care CODE STATUS: FULL CODE Visit type - Emergency Visit Emergency Visit: Yes ED Registration Date: 07/15/16 Care time: The patient presented to the Emergency Department on the above date and was hospitalized for further evaluation of their emergent condition. - New Patient This patient is new to me today: No - Critical Care Critical Care patient: No
[2016-07-16 14:43] VITALS: BP 114/64; PULSE 81; TEMP 98
[2016-07-16] MEDS: LACTATED RINGERS SOLUTION 1,000 ML IV SCH (14:57)
--- NOTE | 2016-07-16 15:47 | PN ---
Progress Note, Physician History of Present Illness: Doing well POD #1 I&D R breast abscess No c/o R breast pain No fever/ chills Afebrile WBC WNL - Current Medication List Current Medications: Active Medications Acetaminophen (Tylenol -) 325 mg PO Q6H PRN PRN Reason: PAIN 6-10 Last Admin: 07/16/16 08:44 Dose: 325 mg Diphenhydramine HCl (Benadryl -) 25 mg PO Q12H WILLIAM Last Admin: 07/16/16 14:51 Dose: 25 mg Hydromorphone HCl (Dilaudid Injection -) 1 mg IVPUSH [id number] PRN PRN Reason: PAIN Stop: 07/18/16 09:55 Last Admin: 07/15/16 10:30 Dose: 1 mg Ampicillin Sodium/Sulbactam Sodium (Unasyn 1.5 Gm (Pre-Docked)) 100 mls @ 200 mls/hr IVPB Q6H-IV WILLIAM Last Admin: 07/16/16 14:51 Dose: 200 mls/hr Vancomycin HCl (Vancomycin (Pre-Docked)) 250 mls @ 200 mls/hr IVPB BID@0200, 1400 WILLIAM Last Admin: 07/16/16 15:13 Dose: Not Given Lactated Ringer's (Lactated Ringers Solution) 1,000 mls @ 100 mls/hr IV ASDIR WILLIAM Last Admin: 07/16/16 14:57 Dose: Not Given Morphine Sulfate (Morphine Injection -) 1 mg IVPUSH Q4H PRN PRN Reason: PAIN LEVEL 6-10 Oxycodone HCl (Roxicodone -) 5 mg PO Q6H PRN PRN Reason: PAIN 6-10 Last Admin: 07/16/16 08:43 Dose: 5 mg - Objective Vital Signs: Vital Signs Temperature 98.0 F 07/16/16 14:00 Pulse Rate 81 07/16/16 14:00 Respiratory Rate 20 07/16/16 14:00 Blood Pressure 114/64 07/16/16 14:00 O2 Sat by Pulse Oximetry (%) 100 07/16/16 09:00 Constitutional: Yes: No Distress Eyes: Yes: Conjunctiva Clear Cardiovascular: Yes: Regular Rate and Rhythm, S1, S2 Respiratory: Yes: CTA Bilaterally Gastrointestinal: Yes: Normal Bowel Sounds, Soft. No: Tenderness Breast(s): Yes: Other (R breast incisional wound packed minimal surrounding erythema/ induration) Labs: CBC, BMP 07/16/16 07:17 INR, PTT INR 1.22 (0.82-1.09) H 07/14/16 03:06 Assessment/Plan S/P I&D R breast abscess Wound c/s grp C strep Cellulitis R breast-improved Red man syndrome May substitute Augmentin 875mg po bid x 7d OK for discharge from ID standpoint Discussed with mother at bedside
--- NOTE | 2016-07-16 16:19 | DS ---
Physical Examination Vital Signs: Vital Signs Temperature 98.0 F 07/16/16 14:00 Pulse Rate 81 07/16/16 14:00 Respiratory Rate 20 07/16/16 14:00 Blood Pressure 114/64 07/16/16 14:00 O2 Sat by Pulse Oximetry (%) 100 07/16/16 09:00 Labs: CBC, BMP 07/16/16 07:17 Discharge Summary Reason For Visit: ABSCESS OF BREAST,BREAST INFECTION Current Active Problems Breast abscess (Acute) Breast infection (Acute) Condition: Improved - Instructions Diet, Activity, Other Instructions: Please return to the ED with new, persistent, or worsening symptoms. Please follow-up with providers as indicated. You may shower, allow water to flow over your right breast. Pat dry and place gauze dressing over. Change dressing once a day or if soiled Avoid heavy lifting You may drive Referrals: Rufino Brady MD [Staff Physician] - (Please follow-up with Dr. Brady on 07/23 for evaluation of your right breast) Rick Lyles MD [Staff Physician] - 1 Week Disposition: VNS/HOME HEALTH CARE - Home Medications Comprehensive Discharge Medication List: Ambulatory Orders Acetaminophen [Tylenol .Regular Strength -] 650 mg PO Q6H PRN #0 tablet Amoxicillin/Potassium Clav [Augmentin 875-125 Tablet] 1 each PO BID #14 tablet 07/16/16
--- NOTE | 2016-07-17 09:19 | OP ---
DATE OF OPERATION: 07/15/2016 PREOPERATIVE DIAGNOSIS: Right breast abscess. POSTOPERATIVE DIAGNOSIS: Right breast abscess. PROCEDURE: Incision and drainage of right breast abscess. SURGEON: Rufino Brady MD SCHOOL OCCUPATIONAL THERAPIST: Becky Nobles PA-C ANESTHESIA: General. OPERATIVE FINDINGS: There was a right breast abscess. The rest of the findings were unremarkable. PROCEDURE: The patient was placed on the operating room table in the supine position, and after the induction of general anesthesia, the patient's right breast was prepped with ChloraPrep and draped in sterile fashion. A timeout was taken. A circumareolar incision was made over the area of fluctuance. Cavity was entered. Pus was drained and sent for culture and sensitivity. The cavity was copiously irrigated and all loculations broken up using blunt dissection. Hemostasis was secured with electrocautery and the wound irrigated again. A 1/2-inch [place] drain placed in the depths of the wound and sutured to the skin edge with 3-0 nylon. The skin edge in the middle of the incision was loosely approximated with a single 3-0 nylon suture. Dry, sterile dressings were placed. The procedure was terminated at this point. The patient was aroused from general anesthesia and transferred to the postanesthesia care unit in stable condition, awake and alert. ESTIMATED BLOOD LOSS: 10 mL. REPLACEMENT: Crystalloid. DRAINS: One [place]. SPECIMEN: Culture and sensitivity to Microbiology. I, Rufino Brady, was physically present in the operating room from the time the patient was placed on the operating room table until she was transferred to the postanesthesia care unit in my accompaniment. Rufino Brady MD /[id number]
== END 2016-07-16 17:36 | disposition home health service (06) | DRG 720 ==
LOC: JER 02:09 → JERBED 03:59 → J6S 17:10 → OBSVTOIN 07-15 13:30
PROVIDERS: ADMIT Internal Medicine; ATTEND Registered Nurse
PROC: 0H9T00Z Drainage of Right Breast with Drainage Device, Open Approach (ICD-10-PCS; principal; 2016-07-15 10:00)
DX: A41.9 Sepsis, unspecified organism (principal); N61.1 Abscess of the breast and nipple; D72.829 Elevated white blood cell count, unspecified
CPT/HCPCS: 36415; 71010-TC; 76642-TC-RT; 80053; 83735; 84703; 85025; 85610; 85730; 87040; 87070; 87205; 93005; 93010; 94760; 99284-25; G0378

== ENCOUNTER 2017-02-20 21:33 | Emergency (ER) | payer OTHER ==
[2017-02-20 21:42] VITALS: BP 120/67; PULSE 108; TEMP 98.8; BMI 20.5
[2017-02-20 23:30] LABS: BASO % 0.3 % (0-2.0); EOS % 0.7 % (0-4.5); HEMATOCRIT 35.5 % (32.4-45.2); HEMOGLOBIN 11.6 GM/dL (10.7-15.3); LYMPH % 13.9 % (8-40); MCH 29.2 pg (25.7-33.7); MCHC 32.8 g/dl (32.0-36.0); MEAN CELL VOLUME 88.9 fl (80-96); MEAN PLT VOLUME 10.1 fl (7.5-11.1); MONO % 10.4 % (3.8-10.2); NEUT % 74.7 % (42.8-82.8); PLATELET COUNT 222 K/MM3 (134-434); RBC 3.99 M/mm3 (3.60-5.2); RDW 13.4 % (11.6-15.6); WHITE BLOOD COUNT 12.7 K/mm3 (4.0-10.0)
[2017-02-20 23:32] LABS: URINE APPEARANCE SLCLOUDY; URINE BILIRUBIN NEGATIVE (NEGATIVE); URINE BLOOD NEGATIVE (NEGATIVE); URINE COLOR YELLOW; URINE GLUCOSE (UA) NEGATIVE (NEGATIVE); URINE KETONE TRACE (NEGATIVE); URINE NITRITE NEGATIVE (NEGATIVE)
[2017-02-20 23:41] LABS: URINE LEUK ESTERASE 2+ (NEGATIVE); URINE PROTEIN 1+ (NEGATIVE)
[2017-02-20 23:45] LABS: EPI CELLS FEW /HPF (FEW); URINE MUCUS FEW
[2017-02-20] MEDS ORDERED: morphine CARPU-JECT 2 MG/1 ML DISP.SYRIN IVPUSH ONE (23:53)
[2017-02-20] MEDS ORDERED: ONDANSETRON 4 MG/2 ML VIAL IVPUSH ONE (23:54)
--- NOTE | 2017-02-20 23:54 | PDOC ---
History of Present Illness <SbMary - Last Filed: 02/21/17 02:07> - General History Source: Patient Exam Limitations: No Limitations - History of Present Illness Travel History: No Initial Comments: 02/21/17 00:44 21-year-old female with a history of pyelonephritis presents to the emergency department complaining of right-sided flank pain which radiates to the right groin. Pain is described as 7/10 sharp intermittent discomfort on the right flank which radiates to the right groin without fever, chills, nausea/vomiting, neck/back pains, chest pain, shortness of breath, urinary symptoms: Frequency/ urgency/hesitancy, hematuria. Patient states symptoms feel similar to her previous pyelonephritis from early 2016. <JoeInna - Last Filed: 02/21/17 04:31> - General Chief Complaint: Chest Pain Stated Complaint: PAIN Time Seen by Provider: 02/20/17 22:56 Past History <BasurtoMary - Last Filed: 02/21/17 02:07> - Past Medical History Anemia: No Asthma: No Cancer: No Cardiac Disorders: No CVA: No COPD: No CHF: No Dementia: No Diabetes: No GI Disorders: No Disorders: No HTN: No Hypercholesterolemia: No Liver Disease: No Seizures: No Thyroid Disease: No - Surgical History Abdominal Surgery: No Appendectomy: No Cardiac Surgery: No Cholecystectomy: No Lung Surgery: No Neurologic Surgery: No Orthopedic Surgery: No - Suicide/Smoking/Psychosocial Hx Smoking History: Never smoked Have you smoked in the past 12 months: No Hx Alcohol Use: No Drug/Substance Use Hx: No Substance Use Type: None Hx Substance Use Treatment: No <Inna Diaz - Last Filed: 02/21/17 04:31> - Past Medical History Allergies/Adverse Reactions: Allergies Allergy/AdvReac Type Severity Reaction Status Date / Time No Known Allergies Allergy Verified 07/14/16 02:48 Home Medications: Ambulatory Orders Acetaminophen [Tylenol .Regular Strength -] 650 mg PO Q6H PRN #0 tablet Amoxicillin/Potassium Clav [Augmentin 875-125 Tablet] 1 each PO BID #14 tablet 07/16/16 Doxycycline Hyclate 100 mg PO BID #20 tablet 02/21/17 Review of Systems - Review of Systems Able to Perform ROS?: Yes Comments:: 02/21/17 00:44 CONSTITUTIONAL: Absent: fever, chills, diaphoresis, generalized weakness, malaise, loss of appetite HEENT: Absent: rhinorrhea, nasal congestion, throat pain, throat swelling, difficulty swallowing, mouth swelling, ear pain, eye pain, visual Changes CARDIOVASCULAR: Absent: chest pain, loss of consciousness, palpitations, irregular heart rate, peripheral edema RESPIRATORY: Absent: cough, shortness of breath, dyspnea with exertion, orthopnea, wheezing, stridor, hemoptysis GASTROINTESTINAL: Absent: abdominal pain, abdominal distension, nausea, vomiting, diarrhea, constipation, melena, hematochezia GENITOURINARY: +RIGHT FLANK PAIN Absent: dysuria, frequency, urgency, hesitancy, hematuria, genital pain MUSCULOSKELETAL: Absent: myalgia, arthralgia, joint swelling SKIN: Absent: rash, itching, pallor HEMATOLOGIC/IMMUNOLOGIC: Absent: easy bleeding, easy bruising, lymphadenopathy, frequent infections ENDOCRINE: Absent: unexplained weight gain, unexplained weight loss, heat intolerance, cold intolerance NEUROLOGIC: Absent: headache, focal weakness or paresthesias, dizziness, unsteady gait, seizure, mental status changes, bladder or bowel incontinence PSYCHIATRIC: Absent: anxiety, depression, suicidal or homicidal ideation, hallucinations. Is the patient limited O[place]i proficient: No <Inna Diaz - Last Filed: 02/21/17 04:31> *Physical Exam - Vital Signs Last Vital Signs Temp Pulse Resp BP Pulse Ox 98.8 F 108 H 20 120/67 100 02/20/17 21:41 02/20/17 21:41 02/20/17 21:41 02/20/17 21:41 02/20/17 21:41 <Mary Basurto - Last Filed: 02/21/17 02:07> - Vital Signs Last Vital Signs Temp Pulse Resp BP Pulse Ox 98.8 F 108 H 20 120/67 100 02/20/17 21:41 02/20/17 21:41 02/20/17 21:41 02/20/17 21:41 02/20/17 21:41 - Physical Exam Comments: 02/21/17 00:45 GENERAL: Well developed, well nourished. Awake and alert. No acute distress. HEENT: Normocephalic, atraumatic. PERRLA, EOMI. No conjunctival pallor. Sclera are non- icteric. Moist mucous membranes. Oropharynx is clear. NECK: Supple. Full ROM. No JVD. Carotid pulses 2+ and symmetric, without bruits. No thyromegaly. No lymphadenopathy. CARDIOVASCULAR: Regular rate and rhythm. No murmurs, rubs, or gallops. Distal pulses are 2+ and symmetric. PULMONARY: No evidence of respiratory distress. Lungs clear to auscultation bilaterally. No wheezing, rales or rhonchi. ABDOMINAL: Soft. Non-tender. Non-distended. No rebound or guarding. No organomegaly. Normoactive bowel sounds. MUSCULOSKELETAL +RIGHT CVAT Normal range of motion at all joints. No bony deformities or tenderness. EXTREMITIES: No cyanosis. No clubbing. No edema. No calf tenderness. SKIN: Warm and dry. Normal capillary refill. No rashes. No jaundice. NEUROLOGICAL: Alert, awake, appropriate. Cranial nerves 2-12 intact. No deficits to light touch and temperature in face, upper extremities and lower extremities. No motor deficits in the in face, upper extremities and lower extremities. Normoreflexic in the upper and lower extremities. Normal speech. Toes are down- going bilaterally. Gait is normal without ataxia. PSYCHIATRIC: Cooperative. Good eye contact. Appropriate mood and affect. <Inna Diaz - Last Filed: 02/21/17 04:31> ED Treatment Course - LABORATORY CBC & Chemistry Diagram: 02/20/17 22:55 02/20/17 22:55 - ADDITIONAL ORDERS Additional order review: Laboratory Results 02/20/17 02/20/17 02/20/17 22:55 22:50 21:00 Sodium 140 Potassium 4.1 Chloride 106 Carbon Dioxide 27 Anion Gap 7 L BUN 14 D Creatinine 0.5 L Creat Clearance w eGFR > 60 Random Glucose 108 H D Calcium 9.1 Total Bilirubin 0.5 D AST 10 L ALT 13 Alkaline Phosphatase 64 D Total Protein 6.8 Albumin 3.7 Total Amylase 29 Lipase 141 Urine Color Yellow Urine Appearance Slcloudy Urine pH 5.0 Ur Specific [place] 1.034 Urine Protein 1+ H Urine Glucose (UA) Negative Urine Ketones Trace H Urine Blood Negative Urine Nitrite Negative Urine Bilirubin Negative Urine Urobilinogen 2.0 H Ur Leukocyte Esterase 2+ H Urine WBC (Auto) 16 Urine RBC (Auto) 3 Ur Epithelial Cells Few Urine Mucus Few Urine HCG, Qual Negative 02/20/17 22:55 RBC 3.99 MCV 88.9 MCHC 32.8 RDW 13.4 MPV 10.1 Neutrophils % 74.7 Lymphocytes % 13.9 Monocytes % 10.4 H Eosinophils % 0.7 Basophils % 0.3 - Medications Given in the ED: ED Medications Discontinued Medications Generic Name Dose Route Start Last Admin Trade Name Crispin PRN Reason Stop Dose Admin Ceftriaxone Sodium 1,000 mg/ 50 mls @ 100 mls/hr 02/21/17 01:14 02/21/17 01: 51 Dextrose IVPB 02/21/17 01:43 100 mls/hr ONCE ONE Administration Morphine Sulfate 2 mg 02/20/17 23:53 02/21/17 00:28 Morphine Injection - IVPUSH 02/20/17 23:54 2 mg ONCE ONE Administration Ondansetron HCl 4 mg 02/20/17 23:54 02/21/17 00:28 Zofran Injection IVPUSH 02/20/17 23:55 4 mg ONCE ONE Administration <Mary Basurto - Last Filed: 02/21/17 02:07> - LABORATORY CBC & Chemistry Diagram: 02/20/17 22:55 02/20/17 22:55 - ADDITIONAL ORDERS Additional order review: Laboratory Results 02/20/17 02/20/17 22:50 21:00 Urine Color Yellow Urine Appearance Slcloudy Urine pH 5.0 Ur Specific [place] 1.034 Urine Protein 1+ H Urine Glucose (UA) Negative Urine Ketones Trace H Urine Blood Negative Urine Nitrite Negative Urine Bilirubin Negative Urine Urobilinogen 2.0 H Ur Leukocyte Esterase 2+ H Urine WBC (Auto) 16 Urine RBC (Auto) 3 Ur Epithelial Cells Few Urine Mucus Few Urine HCG, Qual Negative 02/20/17 22:55 RBC 3.99 MCV 88.9 MCHC 32.8 RDW 13.4 MPV 10.1 Neutrophils % 74.7 Lymphocytes % 13.9 Monocytes % 10.4 H Eosinophils % 0.7 Basophils % 0.3 - RADIOLOGY Radiograph Interpretation: 02/21/17 01:[address]: Preliminary impression: No hydronephrosis, renal masses stone. Nonspecific right pleural fluid collection and patchy subpleural parenchymal opacities possibly reflecting early fibrosis or inflammation. Correlate with pulmonary history and examination is recommended. <Inna Diaz - Last Filed: 02/21/17 04:31> Medical Decision Making - Medical Decision Making 02/21/17 02:07 Patient Name: ARAVIND WALTERS THIS IS A PRELIMINARY REPORT FROM [facility] DATE OF SERVICE: 2017-02-21 01:02:58 IMAGES: [id number] EXAM: CT ABDOMEN AND PELVIS without contrast HISTORY: Pyelonephritis versus renal colic COMPARISON: None. FINDINGS: Abdomen Liver: Normal Spleen: Normal Pancreas: Normal CONFIDENTIALITY NOTICE: This information is intended only for the use of the recipient(s) named above. If you are not the intended recipient, or a person responsible for delivering it to the intended recipient, you are hereby notified that any disclosure, copying, distribution or use of any of the information contained in or attached to this transmission is STRICTLY PROHIBITED. If you have received this transmission in error, please immediately notify Imaging Inspector [employer] and destroy the original transmission and its attachments without saving them in any manner [address] [facility] [address] [place] [address] Phone: [phone] How To [phone] Fax: Email: [email or web address]: [email or web address] Patient Information: : 1995 Name: ROMEO MOORE Sex: F Study Description: CT ABDOMEN AND PELVIS Modality: CT Location: [facility] Referring Physician: JOE ARROYO Gallbladder: Normal Stomach: Normal Small bowel: Normal Large bowel: Normal Appendix: Normal Adrenals:Normal Kidneys: Normal Vascular: Normal Lymphatic: Normal Peritoneal: No free peritoneal air or fluid Pelvis: Uterus: normal CONFIDENTIALITY NOTICE: This information is intended only for the use of the recipient(s) named above. If you are not the intended recipient, or a person responsible for delivering it to the intended recipient, you are hereby notified that any disclosure, copying, distribution or use of any of the information contained in or attached to this transmission is STRICTLY PROHIBITED. If you have received this transmission in error, please immediately notify Imaging Inspector Mechanical and destroy the original transmission and its attachments without saving them in any manner [address] [place] [address] Phone: [phone] Fax: Email: [email or web address]: [email or web address] Patient Information: : 1995 Name: ROMEO MOORE Sex: F Study Description: CT ABDOMEN AND PELVIS Modality: CT Location: [facility] Referring Physician: JOE ARROYO Rectum: Normal Bladder: Normal The inferior thorax: There is a small right pleural fluid collection. There is some subpleural pulmonary parenchymal densities with ground glass and some nodular features General: Skeletal: Normal Abdominal wall: Normal IMPRESSION: No hydronephrosis, renal mass or stone. Correlation with history and urinalysis is recommended. Nonspecific right pleural fluid collection and patchy subpleural parenchymal opacities possibly reflecting early fibrosis, or inflammation. Correlation with pulmonary history and examination is recommended <Mary Basurto - Last Filed: 02/21/17 02:07> *DC/Admit/Observation/Transfer <Mary Basurto - Last Filed: 02/21/17 02:07> - Discharge Dispostion Admit: No <Inna Diaz - Last Filed: 02/21/17 04:31> Diagnosis at time of Disposition: RLL pneumonia Qualifiers: Pneumonia type: due to unspecified organism Qualified Code(s): J18.1 - Lobar pneumonia, unspecified organism - Discharge Dispostion Disposition: HOME Condition at time of disposition: Stable - Patient Instructions Printed Discharge Instructions: DI for Pneumonia -- Adult Additional Instructions: Increase fluids Rest Tylenol alternating with Motrin for pain Return to the Er for severe/persistent/worsening symptoms
[2017-02-21 00:14] LABS: ALBUMIN 3.7 g/dl (3.4-5.0); AMYLASE 29 U/L (25-115); ANION GAP 7 (8-16); BLOOD UREA NITROGEN 14 mg/dL (7-18); CALCIUM 9.1 mg/dL (8.5-10.1); CHLORIDE 106 mmol/L (98-107); CO2 27 mmol/L (21-32); CREATININE 0.5 mg/dL (0.55-1.02); GLUCOSE,RANDOM 108 mg/dL (74-106); LIPASE 141 U/L (73-393); POTASSIUM 4.1 mmol/L (3.5-5.1); SGOT/AST 10 U/L (15-37); SGPT/ALT 13 U/L (12-78); SODIUM 140 mmol/L (136-145)
[2017-02-21 00:18] LABS: ALK PHOS 64 U/L (45-117); BILIRUBIN,TOTAL 0.5 mg/dL (0.2-1.0); TOT PROT 6.8 g/dl (6.4-8.2)
[2017-02-21] MEDS ORDERED: ONDANSETRON 4 MG/2 ML VIAL ONE (00:27)
[2017-02-21] MEDS ORDERED: morphine CARPU-JECT 10 MG/1 ML DISP.SYRIN ONE (00:27)
[2017-02-21] MEDS ORDERED: CEFTRIAXONE 1,000 MG in DEXTROSE 5%-WATER - 50 ML IVPB ONE (01:14)
[2017-02-21] MEDS ORDERED: CEFTRIAXONE 1 GM/50 ML BAG ONE (01:42)
[2017-02-21] MEDS ORDERED: KETOROLAC TROMETHAMINE 30 MG/1 ML VIAL IVPUSH ONE (01:50)
[2017-02-21] MEDS ORDERED: KETOROLAC TROMETHAMINE 30 MG/1 ML VIAL ONE (02:04)
== END 2017-02-21 04:51 | disposition home or self-care (01) ==
LOC: JER 21:33
PROC: 3E03329 Introduction of Other Anti-infective into Peripheral Vein, Percutaneous Approach (ICD-10-PCS; principal; 2017-02-20)
PROC: 3E033NZ Introduction of Analgesics, Hypnotics, Sedatives into Peripheral Vein, Percutaneous Approach (ICD-10-PCS; 2017-02-20)
PROC: 3E0333Z Introduction of Anti-inflammatory into Peripheral Vein, Percutaneous Approach (ICD-10-PCS; 2017-02-20)
PROC: 3E033GC Introduction of Other Therapeutic Substance into Peripheral Vein, Percutaneous Approach (ICD-10-PCS; 2017-02-20)
DX: R10.31 Right lower quadrant pain (principal); J18.1 Lobar pneumonia, unspecified organism
CPT/HCPCS: 36415; 71046-TC; 74176; 80053; 81003; 81015; 82150; 83690; 84703; 85025; 87086; 96365; 96375; 99283-25

== ENCOUNTER 2017-06-22 03:33 | Emergency (ER) | payer OTHER ==
--- NOTE | 2017-06-22 03:38 | PDOC ---
History of Present Illness - General Stated Complaint: SIDE PAIN Time Seen by Provider: 06/22/17 03:38 - History of Present Illness Initial Comments: 21 year old previously healthy female presenting with diffuse abdominal pain, right sided shoulder pain, and right sided chest pain of one day duration. States that she woke up this morning and experienced all of these pains most significantly in her right lower chest. The pain is semi-positional and pleuritic (worse with deep inspiration). States that she took three ibuprofen and went to work. During work she still felt the pains but was able to work through it. Denies nausea, vomiting, diarrhea, constipation, SOB, diaphoresis, urinary symptoms, cough, or other symptoms. Denies recent travel, OCP use, or history of clots. 06/22/17 04:58 Past History - Past Medical History Allergies/Adverse Reactions: Allergies Allergy/AdvReac Type Severity Reaction Status Date / Time No Known Allergies Allergy Verified 06/22/17 04:01 Home Medications: Ambulatory Orders NK [No Known Home Medication] 06/22/17 Anemia: No Asthma: No Cancer: No Cardiac Disorders: No CVA: No COPD: No CHF: No Dementia: No Diabetes: No GI Disorders: No Disorders: No HTN: No Hypercholesterolemia: No Liver Disease: No Seizures: No Thyroid Disease: No - Surgical History Abdominal Surgery: No Appendectomy: No Cardiac Surgery: No Cholecystectomy: No Lung Surgery: No Neurologic Surgery: No Orthopedic Surgery: No - Suicide/Smoking/Psychosocial Hx Smoking History: Never smoked Have you smoked in the past 12 months: No Hx Alcohol Use: No Drug/Substance Use Hx: No Substance Use Type: None Hx Substance Use Treatment: No Review of Systems - Review of Systems Constitutional: No: Chills, Diaphoresis, Fever, Loss of Appetite HEENTM: No: Blurred Vision, Tearing Respiratory: No: Cough, Shortness of Breath, Wheezing Cardiac (ROS): No: Chest Pain, Edema, Irregular Heart Rate ABD/GI: No: Diarrhea, Nausea, Vomiting : No: Dysuria, Discharge, Frequency Musculoskeletal: Yes: Back Pain Integumentary: No: Flushing, Lesions, Lumps Neurological: No: Headache, Numbness *Physical Exam - Physical Exam General Appearance: Yes: Nourished, Appropriately Dressed. No: Apparent Distress HEENT: positive: EOMI, TAL, Normal ENT Inspection, Normal Voice Neck: positive: Trachea midline, Normal Thyroid, Supple. negative: Tender, Rigid Respiratory/Chest: positive: Chest Tender (posterior and lateral right sided thoracic tenderness), Lungs Clear, Normal Breath Sounds. negative: Respiratory Distress, Accessory Muscle Use Cardiovascular: positive: Regular Rhythm, Regular Rate Gastrointestinal/Abdominal: positive: Flat, Soft, Increased Bowel Sounds, Tenderness. negative: Normal Bowel Sounds, Tender Musculoskeletal: positive: Normal Inspection, Other (muscular tenderness across lateral and posterior thorax). negative: CVA Tenderness Extremity: positive: Normal Capillary Refill, Normal Inspection, Normal Range of Motion Integumentary: positive: Normal Color, Dry, Warm Neurologic: positive: custom grinder II-XII NML intact, Fully Oriented, Alert, Normal Mood/ Affect, Normal Response, Motor Strength 06/20 ED Treatment Course - LABORATORY CBC & Chemistry Diagram: 06/22/17 03:20 06/22/17 03:20 Medical Decision Making - Medical Decision Making 21 year old female presenting with right sided thoracic and diffuse abdominal pain that started this morning, slightly improved with Tylenol, but persisted to bother her throughout her work shift. Labs roughly WNL including negative d- dimer with exception of UA that has + leuk esterase but is contaminated. EKG demonstrates NSR with MD 128, QRS 72, Qt/ QTc 419 and no T changes. EKG also has Q3 and flattend t wave in 3 but no s wave. Patient signed out to Dr. Nunez pending abdominal films. 06/22/17 06:46 *DC/Admit/Observation/Transfer Diagnosis at time of Disposition: Chest pain Qualifiers: Chest pain type: chest pain on breathing Qualified Code(s): R07.1 - Chest pain on breathing; R07.81 - Pleurodynia - Referrals - Patient Instructions - Post Discharge Activity
[2017-06-22] MEDS ORDERED: ACETAMINOPHEN 325 MG TABLET (FP) ONE (04:17)
[2017-06-22 04:26] LABS: URINE APPEARANCE CLOUDY; URINE BILIRUBIN NEGATIVE (<2.0 mg/dL); URINE COLOR YELLOW; URINE GLUCOSE (UA) NEGATIVE (NEGATIVE); URINE KETONE NEGATIVE (NEGATIVE); URINE NITRITE NEGATIVE (NEGATIVE); URINE UROBILINOGEN NEGATIVE mg/dL (0.2-1.0)
[2017-06-22 04:31] LABS: BASO % 0.6 % (0-2.0); EOS % 0.6 % (0-4.5); LYMPH % 14.9 % (8-40); MCH 29.9 pg (25.7-33.7); MCHC 34.1 g/dl (32.0-36.0); MEAN CELL VOLUME 87.6 fl (80-96); MEAN PLT VOLUME 10.4 fl (7.5-11.1); MONO % 9.6 % (3.8-10.2); NEUT % 74.3 % (42.8-82.8); PLATELET COUNT 170 K/MM3 (134-434); RDW 13.5 % (11.6-15.6); WHITE BLOOD COUNT 10.3 K/mm3 (4.0-10.0)
[2017-06-22 04:31] LABS: URINE LEUK ESTERASE 3+ (NEGATIVE); URINE PROTEIN 1+ (NEGATIVE)
[2017-06-22 04:34] LABS: EPI CELLS MANY /HPF (FEW); HCG,QUALITATIVE URINE NEGATIVE; URINE BACTERIA FEW /hpf (NONE SEEN); URINE MUCUS MANY
[2017-06-22 04:57] LABS: ALBUMIN 3.9 g/dl (3.4-5.0); ALK PHOS 60 U/L (45-117); ANION GAP 9 (8-16); BILIRUBIN,TOTAL 0.3 mg/dL (0.2-1.0); BLOOD UREA NITROGEN 17 mg/dL (7-18); CALCIUM 9.2 mg/dL (8.5-10.1); CHLORIDE 107 mmol/L (98-107); CO2 28 mmol/L (21-32); CREATININE 0.7 mg/dL (0.55-1.02); GLUCOSE,RANDOM 105 mg/dL (74-106); POTASSIUM 4.3 mmol/L (3.5-5.1); SGOT/AST 12 U/L (15-37); SGPT/ALT 11 U/L (12-78); SODIUM 144 mmol/L (136-145); TOT PROT 6.8 g/dl (6.4-8.2)
[2017-06-22] MEDS ORDERED: KETOROLAC TROMETHAMINE 15 MG/ML VIAL IVPUSH ONE ×2 (05:17→06:30)
[2017-06-22] MEDS ORDERED: KETOROLAC TROMETHAMINE 15 MG/ML VIAL ONE ×2 (05:26→06:33)
[2017-06-22] MEDS ORDERED: METHOCARBAMOL 500 MG TABLET PO ONE (05:43)
[2017-06-22] MEDS ORDERED: METHOCARBAMOL 500 MG TABLET ONE (06:04)
[2017-06-22] MEDS ORDERED: SODIUM CHLORIDE 0.9% 500 ML INFUS.BAG IV ONE (06:39)
[2017-06-22] MEDS: SIMETHICONE 80 MG TAB.CHEW (FP) PO ONE ×2 (07:06→07:35)
--- NOTE | 2017-06-22 07:12 | PDOC ---
*Physical Exam - Vital Signs Last Vital Signs Temp Pulse Resp BP Pulse Ox 98.2 F 111 H 19 117/60 99 06/22/17 03:56 06/22/17 03:56 06/22/17 03:56 06/22/17 03:56 06/22/17 03:56 ED Treatment Course - LABORATORY CBC & Chemistry Diagram: 06/22/17 03:20 06/22/17 03:20 - ADDITIONAL ORDERS Additional order review: Laboratory Results 06/22/17 06/22/17 06/22/17 04:26 04:07 03:20 D-Dimer 267 Sodium Potassium Chloride Carbon Dioxide Anion Gap BUN Creatinine Creat Clearance w eGFR Random Glucose Calcium Total Bilirubin AST ALT Alkaline Phosphatase Total Protein Albumin Lipase 162 Urine Color Yellow Urine Appearance Cloudy Urine pH 5.0 Ur Specific [place] 1.027 Urine Protein 1+ H Urine Glucose (UA) Negative Urine Ketones Negative Urine Blood Negative Urine Nitrite Negative Urine Bilirubin Negative Urine Urobilinogen Negative Ur Leukocyte Esterase 3+ H Urine WBC (Auto) 17 Urine RBC (Auto) 4 Ur Epithelial Cells Many Urine Bacteria Few Urine Mucus Many Urine HCG, Qual Negative 06/22/17 03:20 D-Dimer Sodium 144 Potassium 4.3 Chloride 107 Carbon Dioxide 28 Anion Gap 9 BUN 17 Creatinine 0.7 Creat Clearance w eGFR > 60 Random Glucose 105 Calcium 9.2 Total Bilirubin 0.3 D AST 12 L ALT 11 L Alkaline Phosphatase 60 Total Protein 6.8 Albumin 3.9 Lipase Urine Color Urine Appearance Urine pH Ur Specific [place] Urine Protein Urine Glucose (UA) Urine Ketones Urine Blood Urine Nitrite Urine Bilirubin Urine Urobilinogen Ur Leukocyte Esterase Urine WBC (Auto) Urine RBC (Auto) Ur Epithelial Cells Urine Bacteria Urine Mucus Urine HCG, Qual 06/22/17 03:20 RBC 4.00 MCV 87.6 MCHC 34.1 RDW 13.5 MPV 10.4 Neutrophils % 74.3 Lymphocytes % 14.9 Monocytes % 9.6 Eosinophils % 0.6 Basophils % 0.6 - Medications Given in the ED: ED Medications Discontinued Medications Generic Name Dose Route Start Last Admin Trade Name Freq PRN Reason Stop Dose Admin Ketorolac Tromethamine 15 mg 06/22/17 05:17 06/22/17 05:44 Toradol Injection - IVPUSH 06/22/17 05:18 15 mg ONCE ONE Administration Ketorolac Tromethamine 15 mg 06/22/17 06:30 06/22/17 07:05 Toradol Injection - IVPUSH 06/22/17 06:31 15 mg ONCE ONE Administration Methocarbamol 1,000 mg 06/22/17 05:43 06/22/17 06:21 Robaxin - PO 06/22/17 05:44 1,000 mg ONCE ONE Administration Sodium Chloride 1,000 ml 06/22/17 06:39 06/22/17 07:05 Normal Saline - IV 06/22/17 06:40 1,000 ml ONCE ONE Administration Medical Decision Making - Medical Decision Making 06/22/17 07:12 Care taken over from Dr. Mccullough. 06/22/17 09:04 Patient noted to have right sided fluctuant abscess to right high upper inner thigh. Abscess anesthetised with 1% lidocaine and incised with 11 blade scalpel. Backed with iodoform. Mother to bedside, reports patient has been instructed that she will need surgery in the past for frequent UTI's suggesting anatomical deficiency (unknown ). Patient to CT for further evaluation of abdominal pain / r/o other causes of pain other than currently suspected pyelonephritis. 06/22/17 09:44 XR/CT negative for acute process. Treating empirically for pyelonephritis and discharging with urology follow-up. Patient will also return in 2 days for evaluation of abscess / packing. Patient verbalized understanding and agreement and will comply. *DC/Admit/Observation/Transfer Diagnosis at time of Disposition: Pyelonephritis - Discharge Dispostion Disposition: HOME - Prescriptions Prescriptions: Sulfamethoxazole/Trimethoprim [Bactrim Ds -] 1 tab PO BID #14 tablet - Referrals Referrals: Mohan Bailey MD [Staff Physician] - - Patient Instructions Printed Discharge Instructions: DI for Kidney Infection Additional Instructions: Please return in 2 days as discussed for evaluation of right thigh abscess. Return sooner as needed for any fever, chills, pain not controllable with over the counter medication, or other concerning symptoms. Follow-up with provided urologist for evaluation of frequent UTI's as discussed. Take all medication as proscribed for UTI and kidney infection. - Post Discharge Activity Forms/Work/School Notes: Back to Work
[2017-06-22] MEDS ORDERED: HYDROmorphone HCL CARPU-JECT 1 MG/1 ML DISP.SYRIN IVPUSH ONE (07:33)
[2017-06-22] MEDS ORDERED: ONDANSETRON 4 MG/2 ML VIAL IVPUSH ONE (07:33)
[2017-06-22] MEDS ORDERED: ONDANSETRON 4 MG/2 ML VIAL ONE (07:39)
[2017-06-22 08:02] LABS: URINE APPEARANCE CLEAR; URINE BILIRUBIN NEGATIVE (<2.0 mg/dL); URINE COLOR STRAW; URINE GLUCOSE (UA) NEGATIVE (NEGATIVE); URINE KETONE NEGATIVE (NEGATIVE); URINE LEUK ESTERASE NEGATIVE (NEGATIVE); URINE NITRITE NEGATIVE (NEGATIVE); URINE PROTEIN NEGATIVE (NEGATIVE); URINE UROBILINOGEN NEGATIVE mg/dL (0.2-1.0)
[2017-06-22] MEDS ORDERED: CEFTRIAXONE 1 GM in DEXTROSE 5%-WATER - 100 ML IVPB ONE (08:29)
[2017-06-22] MEDS ORDERED: CEFTRIAXONE 1 GM/50 ML BAG ONE (08:33)
--- NOTE | 2017-06-22 09:57 | PDOC ---
*Physical Exam - Vital Signs Last Vital Signs Temp Pulse Resp BP Pulse Ox 98.2 F 75 16 103/70 97 06/22/17 07:23 06/22/17 07:23 06/22/17 07:23 06/22/17 07:23 06/22/17 07:23 - Physical Exam Comments: 06/22/17 09:53 Heart rate 84 Resting comfortably in stretcher, no acute distress Well-appearing Lungs are clear, heart is regular Abdomen is soft/nondistended, diffuse discomfort to palpation without guarding or rebound, positive right CVA tenderness No dermatomal rash, there is a 5 cm right inner thigh cyst with some fluctuance , no surrounding cellulitis ED Treatment Course - LABORATORY CBC & Chemistry Diagram: 06/22/17 03:20 06/22/17 03:20 - ADDITIONAL ORDERS Additional order review: Laboratory Results 06/22/17 06/22/17 06/22/17 07:41 04:26 04:07 D-Dimer Sodium Potassium Chloride Carbon Dioxide Anion Gap BUN Creatinine Creat Clearance w eGFR Random Glucose Calcium Total Bilirubin AST ALT Alkaline Phosphatase Total Protein Albumin Lipase 162 Urine Color Straw Yellow Urine Appearance Clear Cloudy Urine pH 5.0 5.0 Ur Specific [place] 1.009 1.027 Urine Protein Negative 1+ H Urine Glucose (UA) Negative Negative Urine Ketones Negative Negative Urine Blood Negative Negative Urine Nitrite Negative Negative Urine Bilirubin Negative Negative Urine Urobilinogen Negative Negative Ur Leukocyte Esterase Negative 3+ H Urine WBC (Auto) 17 Urine RBC (Auto) 4 Ur Epithelial Cells Many Urine Bacteria Few Urine Mucus Many Urine HCG, Qual Negative 06/22/17 06/22/17 03:20 03:20 D-Dimer 267 Sodium 144 Potassium 4.3 Chloride 107 Carbon Dioxide 28 Anion Gap 9 BUN 17 Creatinine 0.7 Creat Clearance w eGFR > 60 Random Glucose 105 Calcium 9.2 Total Bilirubin 0.3 D AST 12 L ALT 11 L Alkaline Phosphatase 60 Total Protein 6.8 Albumin 3.9 Lipase Urine Color Urine Appearance Urine pH Ur Specific [place] Urine Protein Urine Glucose (UA) Urine Ketones Urine Blood Urine Nitrite Urine Bilirubin Urine Urobilinogen Ur Leukocyte Esterase Urine WBC (Auto) Urine RBC (Auto) Ur Epithelial Cells Urine Bacteria Urine Mucus Urine HCG, Qual 06/22/17 03:20 RBC 4.00 MCV 87.6 MCHC 34.1 RDW 13.5 MPV 10.4 Neutrophils % 74.3 Lymphocytes % 14.9 Monocytes % 9.6 Eosinophils % 0.6 Basophils % 0.6 - RADIOLOGY Radiology Studies Ordered: Category Date Time Status ABDOMEN & PELVIS CT WITH CONTR [CT] Stat CT Scan 06/22/17 07:33 Completed - Medications Given in the ED: ED Medications Discontinued Medications Generic Name Dose Route Start Last Admin Trade Name Crispin PRN Reason Stop Dose Admin Fentanyl 50 mcg 06/22/17 07:39 06/22/17 07:40 Sublimaze Injection - IVPUSH 06/22/17 07:40 50 mcg ONCE ONE Administration Hydromorphone HCl 0.5 mg 06/22/17 07:33 06/22/17 07:40 Dilaudid Injection - IVPUSH 06/22/17 07:34 Not Given ONCE ONE Ceftriaxone Sodium 1 gm/ 100 mls @ 200 mls/hr 06/22/17 08:29 06/22/17 08:35 Dextrose IVPB 06/22/17 08:58 200 mls/hr ONCE ONE Administration Protocol Ketorolac Tromethamine 15 mg 06/22/17 05:17 06/22/17 05:44 Toradol Injection - IVPUSH 06/22/17 05:18 15 mg ONCE ONE Administration Ketorolac Tromethamine 15 mg 06/22/17 06:30 06/22/17 07:05 Toradol Injection - IVPUSH 06/22/17 06:31 15 mg ONCE ONE Administration Methocarbamol 1,000 mg 06/22/17 05:43 06/22/17 06:21 Robaxin - PO 06/22/17 05:44 1,000 mg ONCE ONE Administration Ondansetron HCl 4 mg 06/22/17 07:33 06/22/17 07:40 Zofran Injection IVPUSH 06/22/17 07:34 4 mg ONCE ONE Administration Simethicone 80 mg 06/22/17 06:40 06/22/17 07:35 Mylicon - PO 06/22/17 06:41 80 mg ONCE ONE Administration Sodium Chloride 1,000 ml 06/22/17 06:39 06/22/17 07:05 Normal Saline - IV 06/22/17 06:40 1,000 ml ONCE ONE Administration Medical Decision Making - Medical Decision Making 06/22/17 09:54 Received signout on this healthy 21-year-old female with 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 workup at time of signout revealed wbc 10, normal chem, poor UA sample with leuks. AXR was ordered, plan was to f/u and reassess. given presentation, h/o pyelo (pt states this feels just like her pyelonephritis ), will check CTAP and reassess 2nd UA reassuring with less evidence of infection. Cx sent but will continue with empiric treatment for pyelonephritis CTAP normal pain improved. mom at bedside, she and pt agree with d/c plan on abx and understand return criteria. encouraged to f/u with urology *DC/Admit/Observation/Transfer Diagnosis at time of Disposition: Pyelonephritis - Discharge Dispostion Disposition: HOME - Prescriptions Prescriptions: Sulfamethoxazole/Trimethoprim [Bactrim Ds -] 1 tab PO BID #14 tablet - Referrals Referrals: Mohan Bailey MD [Staff Physician] - - Patient Instructions Printed Discharge Instructions: DI for Kidney Infection Additional Instructions: Please return in 2 days as discussed for evaluation of right thigh abscess. Return sooner as needed for any fever, chills, pain not controllable with over the counter medication, or other concerning symptoms. Follow-up with provided urologist for evaluation of frequent UTI's as discussed. Take all medication as proscribed for UTI and kidney infection. - Post Discharge Activity Forms/Work/School Notes: Back to Work
[2017-06-22 10:11] VITALS: BP 105/68; PULSE 78; TEMP 98.4
--- NOTE | 2017-06-22 10:40 | EKG ---
Test Reason : Blood Pressure : / mmHG Vent. Rate : 095 BPM Atrial Rate : 095 BPM P-R Int : 128 ms QRS Dur : 072 ms QT Int : 334 ms P-R-T Axes : 077 014 015 degrees QTc Int : 419 ms POOR DATA QUALITY, INTERPRETATION MAY BE ADVERSELY AFFECTED NORMAL SINUS RHYTHM POSSIBLE LEFT ATRIAL ENLARGEMENT BORDERLINE ECG WHEN COMPARED WITH ECG OF 14-JUL-2016 03:13, NO SIGNIFICANT CHANGE WAS FOUND Confirmed by DEVIN DUBOSE MD ([id number]) on 06/22/2017 10:40:12 AM Referred By: Confirmed By:DEVIN DUBOSE MD
== END 2017-06-22 09:52 | disposition home or self-care (01) ==
LOC: JER 03:33
PROC: 3E03329 Introduction of Other Anti-infective into Peripheral Vein, Percutaneous Approach (ICD-10-PCS; principal; 2017-06-22)
PROC: 3E033GC Introduction of Other Therapeutic Substance into Peripheral Vein, Percutaneous Approach (ICD-10-PCS; 2017-06-22)
PROC: 3E0333Z Introduction of Anti-inflammatory into Peripheral Vein, Percutaneous Approach (ICD-10-PCS; 2017-06-22)
PROC: 3E0333Z Introduction of Anti-inflammatory into Peripheral Vein, Percutaneous Approach (ICD-10-PCS; 2017-06-22)
PROC: 3E033NZ Introduction of Analgesics, Hypnotics, Sedatives into Peripheral Vein, Percutaneous Approach (ICD-10-PCS; 2017-06-22)
PROC: 0J9L0ZZ Drainage of Right Upper Leg Subcutaneous Tissue and Fascia, Open Approach (ICD-10-PCS; 2017-06-22)
DX: N12 Tubulo-interstitial nephritis, not specified as acute or chronic (principal); L02.415 Cutaneous abscess of right lower limb; Z87.440 Personal history of urinary (tract) infections
CPT/HCPCS: 10060; 36415; 71046-TC-FY; 74019-TC-FY; 74177-TC; 80053; 81003; 81015; 83690; 84703; 85025; 85379; 87086; 87491; 87591; 93005; 93010; 96365; 96375; 99285-25

== ENCOUNTER 2018-02-05 01:51 | Emergency (ER) | payer OTHER ==
[2018-02-05 02:12] VITALS: BMI 19.5
--- NOTE | 2018-02-05 03:03 | PDOC ---
History of Present Illness - General Chief Complaint: Pain, Acute Stated Complaint: ABD PAIN - History of Present Illness Initial Comments: 02/05/18 03:40 A 22. y.o. F w/ PMHx. of recurrent kidney infections presents to the ED with left-sided flank pain. Pt. states that the pain began spontaneously 7 hours ago while lying in bed. Pt. states that the pain now reminds her of the pain she felt when she was 17 and had a kidney infection that she states she "took Abx. for 1 year for". Pt. states that the pain is a constant 10/10. Pt. endorses a subjective fever with chills at home but states she did not measure her temperature. Pt. endorses diarrhea x 3, the last of which happened this morning. Pt. endorses decreased PO intake because of the pain but denies nausea and vomiting. Pt. states that she has SOB 2/2 pain. Of note Pt. had a Pap Smear a few months ago with biopsy however she has has not followed up on the results. Pt. has irregular periods and is on a Day 11 of her period currently, she states she has missed the last 2 months of her periods. Of note her mother only has 1 kidney because of atrophy 2/2 a renal stone. 02/05/18 04:25 Pt. was give Toradol IM x 1 for pain. Awaiting UA results. 02/05/18 06:00 UA results suggestive of renal stone showing many calcium oxalate crystals. Will f/u with [facility] CT Modifying Factors: improves with: movement (worsens) Associated Symptoms: reports: diaphoresis, fever/chills, shortness of breath Past History - Past Medical History Allergies/Adverse Reactions: Allergies Allergy/AdvReac Type Severity Reaction Status Date / Time No Known Allergies Allergy Verified 02/05/18 02:09 Home Medications: Ambulatory Orders NK [No Known Home Medication] 02/05/18 Anemia: No Asthma: No Cancer: No Cardiac Disorders: No Hx Myocardial Infarction: No CVA: No COPD: No CHF: No Dementia: No Diabetes: No GI Disorders: No Disorders: No HTN: No Hypercholesterolemia: No Liver Disease: No Seizures: No Thyroid Disease: No - Surgical History Abdominal Surgery: No Appendectomy: No Cardiac Surgery: No Cholecystectomy: No Lung Surgery: No Neurologic Surgery: No Orthopedic Surgery: No - Immunization History Immunization Up to Date: Yes - Suicide/Smoking/Psychosocial Hx Smoking History: Never smoked Have you smoked in the past 12 months: No Information on smoking cessation initiated: No Hx Alcohol Use: No Drug/Substance Use Hx: No Substance Use Type: None Hx Substance Use Treatment: No Review of Systems - Review of Systems Able to Perform ROS?: Yes Is the patient limited Haitian proficient: No Constitutional: Yes: Chills, Fever, Loss of Appetite HEENTM: No: Blurred Vision, Difficulty Swallowing Respiratory: Yes: Shortness of Breath. No: Wheezing Cardiac (ROS): Yes: Chest Pain (radiates down to abdomen) ABD/GI: Yes: Diarrhea (3 days ), Poor Appetite, Poor Fluid Intake. No: Abdominal Distended, Blood Streaked Bowels, Constipated, Difficulty Swallowing : Yes: Flank Pain. No: Burning, Dysuria, Discharge, Pain, Urgency Musculoskeletal: Yes: Back Pain *Physical Exam - Vital Signs Last Vital Signs Temp Pulse Resp BP Pulse Ox 98.4 F 94 H 18 123/83 100 02/05/18 02:09 02/05/18 02:09 02/05/18 02:09 02/05/18 02:09 02/05/18 02:09 - Physical Exam General Appearance: Yes: Nourished, Appropriately Dressed, Mild Distress, Thin HEENT: positive: Normal Voice, Symmetrical, Pharynx Normal Neck: positive: Supple Respiratory/Chest: positive: Lungs Clear, Decreased Breath Sounds. negative: Accessory Muscle Use, Wheezing Cardiovascular: positive: Regular Rhythm, S1, S2, Tachycardia Vascular Pulses: Dorsalis-Pedis (R): 2+, Doralis-Pedis (L): 2+ Gastrointestinal/Abdominal: positive: Normal Bowel Sounds, Flat, Soft Musculoskeletal: positive: CVA Tenderness (L) Extremity: positive: Normal Inspection. negative: Calf Tenderness Integumentary: positive: Normal Color, Dry, Warm Neurologic: positive: Fully Oriented, Alert, Normal Mood/Affect, Normal Response Moderate Sedation - Procedure Monitoring Vital Signs: Procedure Monitoring Vital Signs Temperature 98.4 F 02/05/18 02:09 Pulse Rate 94 H 02/05/18 02:09 Respiratory Rate 18 02/05/18 02:09 Blood Pressure 123/83 02/05/18 02:09 O2 Sat by Pulse Oximetry (%) 100 02/05/18 02:09 *DC/Admit/Observation/Transfer Diagnosis at time of Disposition: Pyelonephritis - Discharge Dispostion Disposition: HOME Condition at time of disposition: Stable - Referrals Referrals: Tierney Sung MD [Primary Care Provider] - - Patient Instructions - Post Discharge Activity
--- NOTE | 2018-02-05 03:29 | PDOC ---
Attending Attestation - Resident Resident Name: Mohsen Foster - ED Attending Attestation I have performed the following: I have examined & evaluated the patient, The case was reviewed & discussed with the resident, I agree w/resident's findings & plan, Exceptions are as noted - Physicial Exam PE: GENERAL: Awake, alert, and fully oriented, in no acute distress HEAD: No signs of trauma EYES: PERRLA, EOMI, sclera anicteric, conjunctiva clear ENT: Auricles normal inspection, hearing grossly normal, nares patent, oropharynx clear without exudates. Moist mucosa NECK: Normal ROM, supple, no lymphadenopathy, JVD, or masses LUNGS: Breath sounds equal, clear to auscultation bilaterally. No wheezes, and no crackles HEART: Regular rate and rhythm, normal S1 and S2, no murmurs, rubs or gallops ABDOMEN: Soft, +suprapubic tenderness, normoactive bowel sounds. No guarding, no rebound. No masses. +L CVAT. EXTREMITIES: Normal range of motion, no edema. No clubbing or cyanosis. No cords, erythema, or tenderness NEUROLOGICAL: Cranial nerves II through XII grossly intact. Normal speech, normal gait SKIN: Warm, Dry, normal turgor, no rashes or lesions noted.
[2018-02-05] MEDS ORDERED: KETOROLAC TROMETHAMINE 60 MG/2 ML VIAL IM ONE (03:58)
[2018-02-05] MEDS ORDERED: KETOROLAC TROMETHAMINE 60 MG/2 ML VIAL ONE (04:04)
[2018-02-05 04:49] LABS: URINE APPEARANCE SLCLOUDY; URINE BILIRUBIN NEGATIVE (<2.0 mg/dL); URINE COLOR YELLOW; URINE GLUCOSE (UA) NEGATIVE (NEGATIVE); URINE KETONE 1+ (NEGATIVE); URINE LEUK ESTERASE NEGATIVE (NEGATIVE); URINE NITRITE NEGATIVE (NEGATIVE); URINE PROTEIN 1+ (NEGATIVE); URINE UROBILINOGEN NEGATIVE mg/dL (0.2-1.0)
[2018-02-05 04:52] LABS: CALCIUM OXALATE CRYSTALS MANY /hpf (NONE SEEN); EPI CELLS MANY /HPF (FEW); URINE MUCUS MANY
--- NOTE | 2018-02-05 07:12 | PDOC ---
*Physical Exam - Vital Signs Last Vital Signs Temp Pulse Resp BP Pulse Ox 98.4 F 94 H 18 123/83 100 02/05/18 02:09 02/05/18 02:09 02/05/18 02:09 02/05/18 02:09 02/05/18 02:09 - Physical Exam Comments: 02/05/18 07:57 GENERAL: Awake, alert, and fully oriented, in no acute distress HEAD: No signs of trauma, normocephalic, atraumatic EYES: PERRLA, EOMI, sclera anicteric, conjunctiva clear ENT: oropharynx clear without exudates. Moist mucosa NECK: Normal ROM, supple LUNGS: No distress, speaks full sentences, clear to auscultation bilaterally HEART: Regular rate and rhythm, normal S1 and S2, no murmurs, rubs or gallops, peripheral pulses normal and equal bilaterally. ABDOMEN: Soft, + LUQ, LLQ tenderness to palpation, normoactive bowel sounds. No guarding, no rebound. No masses BACK: + L CVA tenderness EXTREMITIES : Normal inspection, Normal range of motion, no edema. No clubbing or cyanosis. NEUROLOGICAL: Cranial nerves II through XII grossly intact. Normal speech, no focal sensorimotor deficits SKIN: Warm, Dry, normal turgor, no rashes or lesions noted ED Treatment Course - ADDITIONAL ORDERS Additional order review: Laboratory Results 02/05/18 02/05/18 03:55 03:55 Urine Color Yellow Urine Appearance Slcloudy Urine pH 5.0 Ur Specific [place] 1.038 H Urine Protein 1+ H Urine Glucose (UA) Negative Urine Ketones 1+ H Urine Blood 2+ H Urine Nitrite Negative Urine Bilirubin Negative Urine Urobilinogen Negative Ur Leukocyte Esterase Negative Urine WBC (Auto) 7 Urine RBC (Auto) 30 Ur Epithelial Cells Many Calcium Oxalate Crystal Many Urine Mucus Many Urine HCG, Qual Negative - Medications Given in the ED: ED Medications Discontinued Medications Generic Name Dose Route Start Last Admin Trade Name Frejacy PRN Reason Stop Dose Admin Ketorolac Tromethamine 60 mg 02/05/18 03:58 02/05/18 04:10 Toradol Injection - IM 02/05/18 03:59 60 mg ONCE ONE Administration Oxycodone/Acetaminophen 1 combo 02/05/18 04:46 02/05/18 04:55 Percocet 5/325 - PO 02/05/18 04:47 1 combo ONCE ONE Administration Oxycodone/Acetaminophen 1 combo 02/05/18 05:59 02/05/18 06:55 Percocet 5/325 - PO 02/05/18 06:00 1 combo ONCE ONE Administration Medical Decision Making - Medical Decision Making 02/05/18 07:00 Patient signed out by Dr. Foster. In short this patient is young woman with a history of pylonephritis who presents with L sided flank pain and UA with calcium oxalate, and pending CT scan final read to r/o nephrolithiasis. Percocet and Toradol given for pain. Patient assessed, resting comfortably in bed, pleasant. 02/05/18 08:45 Patient reassessed, eating and drinking at bedside, no acute distress. 02/05/18 09:05 Patient tearful at bedside, complaining of pain, LUQ tenderness to palpation with some guarding, 02/05/18 09:[address]: mild splenomegaly wnl, no hydronephrosis or renal stone Will discharge with antibiotic course for pyelonephritis. Patient stable for discharge. Informed of all lab and imaging results. Given follow up instructions and strict return precautions. Patient expressed understanding and agree to plan. *DC/Admit/Observation/Transfer Diagnosis at time of Disposition: Pyelonephritis - Discharge Dispostion Disposition: HOME Condition at time of disposition: Stable - Prescriptions Prescriptions: Oxycodone HCl 5 mg PO DAILY #3 tablet MDD 10 Sulfamethoxazole/Trimethoprim [Bactrim Ds -] 1 tab PO BID #14 tablet - Referrals Referrals: Tierney Sung MD [Primary Care Provider] - Mohan Bailey MD [Staff Physician] - - Patient Instructions Additional Instructions: In the ED you were seen and evaluated with labwork and imaging. You results showed a likely infection of kidney. You are prescribed a Bactrim antibiotic course and short course of Oxycodone pain medications. Please take medications as directed. You were given a referral to Urology, Dr. Bailey with whom you have been seen before. Please follow up with this referral and see your Family Physician within 1 week Return to the Emergency Department if your abdominal pain significantly worsens , if you have pain or difficulty with urinating, blood in your urine, fever, nausea, vomiting, chest pain or shortness of breath. - Post Discharge Activity
[2018-02-05 08:35] VITALS: BP 118/73; PULSE 80; TEMP 98.6
== END 2018-02-05 09:45 | disposition home or self-care (01) ==
LOC: JER 01:51
PROC: 3E0233Z Introduction of Anti-inflammatory into Muscle, Percutaneous Approach (ICD-10-PCS; principal; 2018-02-05)
DX: N12 Tubulo-interstitial nephritis, not specified as acute or chronic (principal); N20.0 Calculus of kidney
CPT/HCPCS: 74176; 81003; 81015; 84703; 87086; 99281-25

== ENCOUNTER 2018-06-10 16:17 | Emergency (ER) | payer OTHER ==
[2018-06-10 16:25] VITALS: BP 127/86; PULSE 84; TEMP 98.1; BMI 19.3
--- NOTE | 2018-06-10 16:25 | PDOC ---
Rapid Medical Evaluation Chief Complaint: Chest Pain Time Seen by Provider: 06/10/18 16:20 Medical Evaluation: Allergies Allergy/AdvReac Type Severity Reaction Status Date / Time No Known Allergies Allergy Verified 02/05/18 02:09 06/10/18 16:23 22 year old female reports that she trip and fell now has pain to left posterior chest for the last 2 hours worse with movement and palpation. history of pyelonephritis Pe: patient alert ox3. breath soudns clear. + moderate tenderness to right posterior chest. A: costochondral chest pain P: ua patient to the ER for further management of cARE Discharge Disposition - Diagnosis Costochondral chest pain - Referrals - Patient Instructions - Post Discharge Activity
[2018-06-10 16:47] LABS: EPI CELLS 16.3 /HPF (0-5/HPF); PH,URINE 6.5 (5.0-8.0); URINE APPEARANCE CLOUDY; URINE BACTERIA 253.2 /hpf (NEGATIVE); URINE BILIRUBIN NEGATIVE (NEGATIVE); URINE CASTS 7 /lpf (0-8); URINE COLOR YELLOW; URINE GLUCOSE (UA) NEGATIVE (NEGATIVE); URINE KETONE NEGATIVE (NEGATIVE); URINE LEUK ESTERASE 2+ (NEGATIVE); URINE NITRITE NEGATIVE (NEGATIVE); URINE PROTEIN NEGATIVE (NEGATIVE); URINE RBC 8 /hpf (0-4); URINE WBC 11 /hpf (0-5)
--- NOTE | 2018-06-10 17:10 | PDOC ---
History of Present Illness - General Chief Complaint: Chest Pain Stated Complaint: LT KIDNEY AREA PAIN Time Seen by Provider: 06/10/18 16:20 - History of Present Illness Initial Comments: 06/10/18 17:07 22 yo F with h/o recurrent UTI's who p/w left flank and posterior chest wall pain. Patient reports 2 hours of acute sudden onset of pleuritic, sharp, non radiating, left sided posterior chest wall, and flank pain, of high intensity. Pain worse with touch, and similiar to pain in past associated with pyelo and UTI's. Patient attempted OTC with absent symptom relief. Also endorses 2 days of intermittent chest pressure, and palpitations occurring concurrently, and lasting seconds, then resolving spontaneously with absent identifiable triggers or alleviators.Multiple ED workups for current complaint and last seen [facility] () with negative CTAP. Recent fall with right arm fracture/unspecified. Arm in immobilization sling. Seen at [facility]. Denies head/neck/back trauma. Patient denies LARES, vision change, cough, wheezing, orthopena, PND, leg swelling /pain, N/V, F,C, SOB, urinary complaints, hematuria, BPR, abdominal pain, diarrhea, constipation, lightheadedness, weakness, sensory changes. PMHx: as noted above. F/w Urology Dr. Bailey. H/o congenital renal stenosis. Surgical: denies abdominal surgery ROS: as noted SHx: Denies Etoh, IVDA. +tobacco use. Allergies: NKDA Past History - Past Medical History Allergies/Adverse Reactions: Allergies Allergy/AdvReac Type Severity Reaction Status Date / Time No Known Allergies Allergy Verified 06/10/18 16:21 Home Medications: Ambulatory Orders Oxycodone HCl 5 mg PO DAILY #3 tablet MDD 10 02/05/18 Oxycodone HCl/Acetaminophen [Percocet 5-325 mg Tablet] 1 tab PO BID #3 tab MDD 2 02/05/18 Sulfamethoxazole/Trimethoprim [Bactrim Ds -] 1 tab PO BID #14 tablet 02/05/18 Cephalexin Monohydrate [Keflex -] 500 mg PO BID #14 capsule 06/10/18 Anemia: No Asthma: No Cancer: No Cardiac Disorders: No CVA: No COPD: No CHF: No Dementia: No Diabetes: No GI Disorders: No Disorders: No HTN: No Hypercholesterolemia: No Kidney Stones: Yes (KIDNEY INFECTION) Liver Disease: No Seizures: No Thyroid Disease: No - Surgical History Abdominal Surgery: No Appendectomy: No Cardiac Surgery: No Cholecystectomy: No Lung Surgery: No Neurologic Surgery: No Orthopedic Surgery: No - Immunization History Immunization Up to Date: Yes - Suicide/Smoking/Psychosocial Hx Smoking History: Never smoked Have you smoked in the past 12 months: No Hx Alcohol Use: No Drug/Substance Use Hx: No Substance Use Type: None Hx Substance Use Treatment: No Review of Systems - Review of Systems Comments:: 06/10/18 17:53 GENERAL/CONSTITUTIONAL: No fever or chills. No weakness. HEAD, EYES, EARS, NOSE AND THROAT: No change in vision. No ear pain or discharge. No sore throat. CARDIOVASCULAR: + chest pain. No shortness of breath RESPIRATORY: No cough, wheezing, or hemoptysis. GASTROINTESTINAL: No nausea, vomiting, diarrhea or constipation. GENITOURINARY: No dysuria, frequency, or change in urination. MUSCULOSKELETAL: + Left posterior back pain. No joint or muscle swelling. No neck pain. SKIN: No rash NEUROLOGIC: No headache, vertigo, loss of consciousness, or change in strength/ sensation. ENDOCRINE: No increased thirst. No abnormal weight change HEMATOLOGIC/LYMPHATIC: No anemia, easy bleeding, or history of blood clots. ALLERGIC/IMMUNOLOGIC: No hives or skin allergy. *Physical Exam - Vital Signs Last Vital Signs Temp Pulse Resp BP Pulse Ox 98.1 F 84 18 127/86 100 06/10/18 16:22 06/10/18 16:22 06/10/18 16:22 06/10/18 16:22 06/10/18 16:22 - Physical Exam Comments: 06/10/18 17:54 GENERAL: Awake, alert, and fully oriented, in no acute distress HEAD: No signs of trauma, normocephalic, atraumatic EYES: PERRLA, EOMI, sclera anicteric, conjunctiva clear ENT: Hearing grossly normal, nares patent, oropharynx clear without exudates. Moist mucosa NECK: Normal ROM, supple, no lymphadenopathy, JVD, or masses LUNGS: No distress, speaks full sentences, clear to auscultation bilaterally HEART: Regular rate and rhythm, normal S1 and S2, no murmurs, rubs or gallops, peripheral pulses normal and equal bilaterally. ABDOMEN: + Left flank/left posterior chest wall ttp. Absent obvious bony deformity, Abdomen Soft, nontender, normoactive bowel sounds. No guarding, no rebound. No masses. EXTREMITIES : Normal inspection, Normal range of motion, no edema. No clubbing or cyanosis. NEUROLOGICAL: Cranial nerves II through XII grossly intact. Normal speech, normal gait, no focal sensorimotor deficits SKIN: Warm, Dry, normal turgor, no rashes or lesions noted ABDOMEN: Soft, nontender, normoactive bowel sounds. No guarding, no rebound. No masses EXTREMITIES : Normal inspection, Normal range of motion, no edema. No clubbing or cyanosis. ED Treatment Course - LABORATORY CBC & Chemistry Diagram: 06/10/18 17:45 06/10/18 17:45 - ADDITIONAL ORDERS Additional order review: Laboratory Results 06/10/18 16:30 Urine Color Yellow Urine Appearance Cloudy Urine pH 6.5 D Ur Specific [place] 1.024 Urine Protein Negative Urine Glucose (UA) Negative Urine Ketones Negative Urine Blood Negative Urine Nitrite Negative Urine Bilirubin Negative Urine Urobilinogen 1.0 Ur Leukocyte Esterase 2+ H Urine WBC (Auto) 11 Urine RBC (Auto) 8 Urine Casts (Auto) 7 U Epithel Cells (Auto) 16.3 Urine Bacteria (Auto) 253.2 Medical Decision Making - Medical Decision Making 06/10/18 17:13 22 yo F with h/o recurrent UTI's who p/w left flank and posterior chest wall pain. Vitals wnl, AF, A&Ox4. + Left posterior chest wall, and flank ttp. R/o rib fracture. Will consider UTI/pyelonephroitis. R/o obstructive uroapthy, ARMEN. Will consider costochondritis, pleural effusion. PERC Negative PE. Will provide analgesia and reassess. Ed Course: 06/10/18 17:56 Laboratory Tests 06/10/18 16:30 Urine Color Yellow Urine Appearance Cloudy Urine Nitrite Negative Ur Leukocyte Esterase 2+ H Urine WBC (Auto) 11 Urine RBC (Auto) 8 U Epithel Cells (Auto) 16.3 Urine Bacteria (Auto) 253.2 06/10/18 19:24 CBC: Unremarkable serum preg: Neg CMP: hemolyzed Patient signs out AMA prior to CXR, CBC repeat Keflex sent to pharmacy Advised to f/u Urology *DC/Admit/Observation/Transfer Diagnosis at time of Disposition: Flank pain UTI (urinary tract infection) Qualifiers: Urinary tract infection type: site unspecified Hematuria presence: without hematuria Qualified Code(s): N39.0 - Urinary tract infection, site not specified - Discharge Dispostion Disposition: AGAINST MEDICAL ADVICE Condition at time of disposition: Unchanged/Unknown Decision to Admit order: No - Prescriptions Prescriptions: Cephalexin Monohydrate [Keflex -] 500 mg PO BID #14 capsule - Referrals Referrals: Tierney Sung MD [Primary Care Provider] - - Patient Instructions Printed Discharge Instructions: DI for Atypical Chest Pain, DI for Flank Pain Additional Instructions: Please return to the emergency department with any new or worsening symptoms or concerns. Please follow up with your primary care physician within 72 hours. Please follow up with Urology/Gynecology within 72 hours for recurrent UTI's and persistent left flank pain. - Post Discharge Activity
[2018-06-10] MEDS ORDERED: SODIUM CHLORIDE 1,000 ML IV STA (17:14)
--- NOTE | 2018-06-10 17:47 | PDOC ---
Documentation entered by Benita Hirsch SCRIBE, acting as scribe for Amirah Porter DO. Amirah Porter DO: This documentation has been prepared by the Torrey nicholson Nirvannie, SCRIBE, under my direction and personally reviewed by me in its entirety. I confirm that the documentation accurately reflects all work, treatment, procedures, and medical decision making performed by me. Attending Attestation - Resident Resident Name: Jairo Vazquezson - ED Attending Attestation I have performed the following: I have examined & evaluated the patient, The case was reviewed & discussed with the resident, I agree w/resident's findings & plan - HPI HPI: 06/10/18 18:07 The patient is a 22 year old female, with a significant past medical history of frequent UTIs and possible left renal stenosis, who presents to the emergency department with, left flank pain and 2 hours of left-sided pleuritic chest pressure with associated palpitations. Patient notes her flank pain is similar to her past UTIs. She endorses falling yesterday at which time she went to [facility] ER and was diagnosed as a right humerus fracture. She denies recent fevers, chills, headache or dizziness. She denies recent nausea, vomit, diarrhea or constipation. She denies recent dysuria, frequency, urgency or hematuria. She denies recent chest pain or shortness of breath. Allergies: NKDA Past surgical history: None reported. Primary Care Physician: Dr. Sung Urologist: Dr. Ko - Physicial Exam PE: 06/10/18 18:07 Constitutional: Awake, alert, oriented. No acute distress. Head: Normocephalic. Atraumatic Eyes: PERRL. EOMI. Conjunctivae are not pale. ENT: Mucous membranes are moist and intact. Posterior pharynx without exudates or erythema. Uvula midline. Neck: Supple. Full ROM. No lymphadenopathy. Cardiovascular: Regular rate. Regular rhythm. S1, S2 regular. Distal pulses are 2+ and symmetric. Pulmonary/Chest: No evidence of respiratory distress. Clear to auscultation bilaterally No wheezing, rales or rhonchi. Abdominal: Soft and non-distended. There is no tenderness. No rebound, guarding or rigidity. No organomegaly. No palpable masses. Good bowel sounds. Back: +Left CVA tenderness. Musculoskeletal: + Right arm in sling following humerus fracture. +Left sided rib pain. No edema. No cyanosis. No clubbing. No calf tenderness. Radial/ pedal pulses are intact and 2+ bilaterally Skin: Skin is warm and dry. No petechiae. No purpura. Neurological: Alert and oriented to person, place, and time. Cranial nerves II -XII are grossly intact. Normal speech. Strength is grossly symmetric. No sensory deficits. Psychiatric: Good eye contact. Normal interaction, affect and behavior. - Medical Decision Making 06/10/18 17:38 I, Dr. Amirah Porter, DO, attest that this document has been prepared under my direction and personally reviewed by me in its entirety. I further attest, that it accurately reflects all work, treatment, procedures and medical decision -making performed by me. 06/10/18 17:38 a/p: 22yo female with hx of freq uti with L flank pain -feels similar to prior episodes of UTI -denies dysuria -follows with Dr. Braden Gil from Urology who recommended stenting in the past for recurrent uti, but pt declined at that time -no f/c -pain started today -also had a fall last night, R shoulder injury- states humerus fx dx at [facility] - in a sling -denies hitting her head or LOC -will send labs, toradol, ivf hydraiton -ua sent from [facility] shows UTI -will start rocephin -will monitor and reassess 06/10/18 19:16 cr normal cbc needs to be redrawn pt states she does not want any further lab work and is refusing xray states she just wants to leave pt feeling better states she wants to sign out AMA states she will follow up with Dr. Bailey *DC/Admit/Observation/Transfer Diagnosis at time of Disposition: UTI (urinary tract infection), Flank pain - Discharge Dispostion Disposition: AGAINST MEDICAL ADVICE Condition at time of disposition: Unchanged/Unknown - Prescriptions Prescriptions: Cephalexin Monohydrate [Keflex -] 500 mg PO BID #14 capsule - Referrals Referrals: Tierney Sung MD [Primary Care Provider] - - Patient Instructions Printed Discharge Instructions: DI for Atypical Chest Pain, DI for Flank Pain Additional Instructions: Please return to the emergency department with any new or worsening symptoms or concerns. Please follow up with your primary care physician within 72 hours. Please follow up with Urology/Gynecology within 72 hours for recurrent UTI's and persistent left flank pain. - Post Discharge Activity
[2018-06-10] MEDS ORDERED: ACETAMINOPHEN 325 MG TABLET (FP) PO ONE (17:48)
[2018-06-10] MEDS ORDERED: CEPHALEXIN MONOHYDRATE 500 MG CAPSULE (UD) PO ONE (18:00)
[2018-06-10] MEDS ORDERED: CEPHALEXIN MONOHYDRATE 500 MG CAPSULE (UD) ONE (18:25)
[2018-06-10] MEDS ORDERED: ACETAMINOPHEN 325 MG TABLET (FP) ONE ×2 (18:25→19:17)
[2018-06-10 18:59] LABS: ALBUMIN 3.9 g/dl (3.4-5.0); ALK PHOS 75 U/L (45-117); ANION GAP 9 MMOL/L (8-16); BILIRUBIN,TOTAL 0.6 mg/dL (0.2-1); BLOOD UREA NITROGEN 12 mg/dL (7-18); CALCIUM 9.5 mg/dL (8.5-10.1); CHLORIDE 107 mmol/L (98-107); CO2 23 mmol/L (21-32); CREATININE 0.5 mg/dL (0.55-1.3); GLUCOSE,RANDOM 85 mg/dL (74-106); POTASSIUM 4.1 mmol/L (3.5-5.1); SGOT/AST 27 U/L (15-37); SGPT/ALT 15 U/L (13-61); SODIUM 139 mmol/L (136-145); TOT PROT 6.8 g/dl (6.4-8.2)
== END 2018-06-10 19:38 | disposition left against medical advice (07) ==
LOC: JER 16:17
DX: N39.0 Urinary tract infection, site not specified (principal)
CPT/HCPCS: 36415; 80053; 81003; 84443; 84703; 99281-25

== ENCOUNTER 2018-07-05 08:10 | Emergency (ER) | payer OTHER ==
[2018-07-05 08:18] VITALS: BMI 18.6
[2018-07-05] MEDS ORDERED: SODIUM CHLORIDE 1,000 ML IV ONE (09:20)
[2018-07-05] MEDS ORDERED: IBUPROFEN 400 MG TABLET (FP) PO ONE ×2 (09:20→09:42)
[2018-07-05] MEDS ORDERED: morphine CARPU-JECT 4 MG/1 ML DISP.SYRIN IVPUSH ONE (09:20)
--- NOTE | 2018-07-05 09:22 | PDOC ---
History of Present Illness - General Chief Complaint: Pain, Acute Stated Complaint: FLANK PAIN Time Seen by Provider: 07/05/18 09:09 History Source: Patient Exam Limitations: No Limitations - History of Present Illness Travel History: No Initial Comments: 07/05/18 09:21 22y F hx of utis, chronic L sided flank pain, presents with 1 day of L sided flank pain. The pt notes the pain is in the L flank/abdomen area and is constant , started gradually last night - notes she has this pain frequently since she was 17 - lasts for a few days - has been to multiple doctors, ERs, specialists without any firm diagnosis. Pt was seen in our ER last month for similra complaint and had a CT kandy twas nondiagnostic. pt mentions prior UTIs but dnies any current dysuria, frequency, foul smelling urine, fever/chills, vag discharge , diarrhea, melena, bpr, cp, sob, hemoptysis cough. Pt took tylenol without significant relief. Allergies: NKDA Past surgical history: None reported. Primary Care Physician: Dr. Sung Urologist: Dr. Ko 07/05/18 09:21 Past History - Past Medical History Allergies/Adverse Reactions: Allergies Allergy/AdvReac Type Severity Reaction Status Date / Time No Known Allergies Allergy Verified 07/05/18 08:16 Home Medications: Ambulatory Orders Cyclobenzaprine HCl [Flexeril 10 mg] 10 mg PO BID PRN #14 tablet 07/05/18 Sulfamethoxazole/Trimethoprim [Bactrim Ds -] 1 tab PO BID #13 tablet 07/05/18 Anemia: No Asthma: No Cancer: No Cardiac Disorders: No CVA: No COPD: No CHF: No Dementia: No Diabetes: No GI Disorders: No Disorders: No HTN: No Hypercholesterolemia: No Kidney Stones: Yes (KIDNEY INFECTION) Liver Disease: No Seizures: No Thyroid Disease: No - Surgical History Abdominal Surgery: No Appendectomy: No Cardiac Surgery: No Cholecystectomy: No Lung Surgery: No Neurologic Surgery: No Orthopedic Surgery: No - Immunization History Immunization Up to Date: Yes - Suicide/Smoking/Psychosocial Hx Smoking History: Never smoked Have you smoked in the past 12 months: No Hx Alcohol Use: No Drug/Substance Use Hx: No Substance Use Type: None Hx Substance Use Treatment: No Review of Systems - Review of Systems Able to Perform ROS?: Yes Comments:: 07/05/18 09:30 Constitutional - no reported Fever, Chills, HEENT: no reported vision changes, sore throat Respiratory: no reported cough, sob, hemoptysis Cardiac: no reported chest pain, palpitations, light headedness, leg swelling Abd/GI: +abd pain, no reported nausea, vomiting, blood per rectum, melena, diarrhea : no reported dysuria, frequency, discharge Musculskelatal - no reported back pain, joint swelling skin - no reported bruising, erythema, rash neurological: no reported headache, numbness, focal weakness, tingling, ataxia, hematologic: no reported easy bruising, easy bleeding *Physical Exam - Vital Signs Last Vital Signs Temp Pulse Resp BP Pulse Ox 98.5 F 103 H 18 107/70 99 07/05/18 08:16 07/05/18 08:16 07/05/18 08:16 07/05/18 08:16 07/05/18 08:16 - Physical Exam Comments: 07/05/18 09:30 GENERAL: The patient is awake, alert, and fully oriented, Nontoxic - in no acute distress. HEAD: Normocephalic, atraumatic. EYES: extraocular movements intact, sclera anicteric, conjunctiva clear. ENT: Normal voice, Moist mucous membranes. NECK: Normal range of motion, supple LUNGS: Breath sounds equal, clear to auscultation bilaterally. No wheezes, no rhonchi, no rales. HEART: Regular rate and rhythm, normal S1 and S2 without murmur, rub or gallop. ABDOMEN: moderate L sided flank pain, +tense abd obliques, mild L sided abd ttp EXTREMITIES: Normal range of motion, no edema. No clubbing or cyanosis. No cords, erythema, or tenderness. NEUROLOGICAL: No facial assymetry, Normal speech, PSYCH: Normal mood, normal affect. SKIN: Warm, Dry, normal turgor, ED Treatment Course - LABORATORY CBC & Chemistry Diagram: 07/05/18 09:17 07/05/18 09:17 Medical Decision Making - Medical Decision Making 07/05/18 09:32 ddx includes UTI, kidney stones, msk pain, consider diverticulitis will ck ua, hcg, blood work will give analgesia 07/05/18 10:47 The patient's blood work was reviewed and was unremarkable the patient's UA suggests possible UTI. As the patient also has some flank pain we'll treat the patient with a longer duration of Bactrim for possible Pylo. We'll obtain a renal ultrasound to rule out hydronephrosis As the patient's tenderness seems to be on the external abdominal oblique I suspect there may be a component of muscle spasm involved we'll give the patient some Flexeril 07/05/18 15:47 pts US reviewed will have pt fuw ith nephro pts pain is improved will dc with outpatient management returnprecautions were disccussed *DC/Admit/Observation/Transfer Diagnosis at time of Disposition: Flank pain UTI (urinary tract infection) Qualifiers: Urinary tract infection type: site unspecified Hematuria presence: with hematuria Qualified Code(s): N39.0 - Urinary tract infection, site not specified - Discharge Dispostion Disposition: HOME Condition at time of disposition: Improved Decision to Admit order: No - Prescriptions Prescriptions: Cyclobenzaprine HCl [Flexeril 10 mg] 10 mg PO BID PRN #14 tablet PRN Reason: Muscle Spasms Sulfamethoxazole/Trimethoprim [Bactrim Ds -] 1 tab PO BID #13 tablet - Referrals Referrals: Tierney Sung MD [Primary Care Provider] - - Patient Instructions Printed Discharge Instructions: DI for Urinary Tract Infection (UTI) Additional Instructions: Return to the emergency department immediately with ANY new, persistent or worsening symptoms including any fevers, chills, worsening back pain, vomiting and inability to tolerate oral intake or any other concerns. You MUST call and follow up with your doctor in 3-4 days for further evaluation of your symptoms. Results were discussed with you. Please make sure your doctor reviews the results of your emergency evaluation. Your ultrasound results revealed a dilated renal pelvis please follow-up with your primary care doctor to have this evaluated. A copy of the ultrasound results are included with your discharge paperwork please have your doctor reviews this - Post Discharge Activity
[2018-07-05 09:36] LABS: BASO % 0.4 % (0-2.0); EOS % 0.6 % (0-4.5); HEMATOCRIT 35.6 % (32.4-45.2); HEMOGLOBIN 11.7 GM/dL (10.7-15.3); LYMPH % 18.6 % (8-40); MCHC 32.9 g/dl (32.0-36.0); MEAN CELL VOLUME 88.2 fl (80-96); MEAN PLT VOLUME 10.6 fl (7.5-11.1); MONO % 10.4 % (3.8-10.2); PLATELET COUNT 156 K/MM3 (134-434); RBC 4.04 M/mm3 (3.60-5.2); RDW 13.5 % (11.6-15.6); WHITE BLOOD COUNT 7.6 K/mm3 (4.0-10.0)
[2018-07-05 10:04] LABS: ALBUMIN 4.1 g/dl (3.4-5.0); BILIRUBIN,TOTAL 0.6 mg/dL (0.2-1); CALCIUM 9.1 mg/dL (8.5-10.1); CREATININE 0.7 mg/dL (0.55-1.3); POTASSIUM 4.2 mmol/L (3.5-5.1); TOT PROT 6.9 g/dl (6.4-8.2)
[2018-07-05 10:10] LABS: EPI CELLS 20.4 /HPF (0-5/HPF); URINE APPEARANCE CLOUDY; URINE BACTERIA 825.2 /hpf (NEGATIVE); URINE BILIRUBIN NEGATIVE (NEGATIVE); URINE CASTS 25 /lpf (0-8); URINE COLOR YELLOW; URINE GLUCOSE (UA) NEGATIVE (NEGATIVE); URINE KETONE NEGATIVE (NEGATIVE); URINE LEUK ESTERASE 1+ (NEGATIVE); URINE NITRITE NEGATIVE (NEGATIVE); URINE PROTEIN NEGATIVE (NEGATIVE); URINE RBC 5 /hpf (0-4); URINE WBC 32 /hpf (0-5)
[2018-07-05] MEDS ORDERED: CYCLOBENZAPRINE HCL 10 MG TABLET (FP) PO ONE (10:45)
[2018-07-05] MEDS ORDERED: SULFAMETHOXAZOLE/TRIMETHOPRIM 800MG/160MG D.S. TABLET PO ONE (10:46)
[2018-07-05] MEDS ORDERED: SULFAMETHOXAZOLE/TRIMETHOPRIM 800MG/160MG D.S. TABLET ONE (11:12)
[2018-07-05] MEDS ORDERED: CYCLOBENZAPRINE HCL 10 MG TABLET (FP) ONE (11:12)
[2018-07-05 14:41] VITALS: BP 110/68; PULSE 80; TEMP 98
== END 2018-07-05 14:41 | disposition home or self-care (01) ==
LOC: JER 08:10
PROC: 3E0337Z Introduction of Electrolytic and Water Balance Substance into Peripheral Vein, Percutaneous Approach (ICD-10-PCS; principal; 2018-07-05)
PROC: 3E033NZ Introduction of Analgesics, Hypnotics, Sedatives into Peripheral Vein, Percutaneous Approach (ICD-10-PCS; 2018-07-05)
DX: N39.0 Urinary tract infection, site not specified (principal)
CPT/HCPCS: 36415; 76775-TC; 80053; 81003; 84703; 85025; 87086; 96361; 96374; 99282-25; J7030

== ENCOUNTER 2019-03-31 20:56 | Emergency (ER) | payer OTHER ==
[2019-03-31 21:05] VITALS: TEMP 98; BMI 19.7
--- NOTE | 2019-03-31 21:15 | PDOC ---
History of Present Illness - General Chief Complaint: Pain Stated Complaint: ABD PAIN Time Seen by Provider: 03/31/19 21:13 - History of Present Illness Initial Comments: 03/31/19 21:14 23 yo F, , PMH UTIs, chronic L sided flank pain, presents with crampy abdominal pain. Patient had D+A at 7 weeks gestation 5 days ago in [place]. Since then, she had mild vaginal bleeding. However, today she developed severe 10/10 crampy suprapubic abdominal pain. Patient has had one other D+A in the past, but did not have pain with that one. Denies fevers/chills, N/V, CP, SOB, urinary symptoms. Patient has follow up at [facility] in [place] where she had procedure on Thursday04/09/2019. Patient's OBGYN is Dr. Palencia. Past History - Past Medical History Allergies/Adverse Reactions: Allergies Allergy/AdvReac Type Severity Reaction Status Date / Time No Known Allergies Allergy Verified 03/31/19 21:04 Home Medications: Ambulatory Orders Cyclobenzaprine HCl [Flexeril 10 mg] 10 mg PO BID PRN #14 tablet 07/05/18 Sulfamethoxazole/Trimethoprim [Bactrim Ds -] 1 tab PO BID #13 tablet 07/05/18 Ibuprofen 800 mg PO TID PRN #15 tablet 04/01/19 Anemia: No Asthma: No Cancer: No Cardiac Disorders: No CVA: No COPD: No CHF: No Dementia: No Diabetes: No GI Disorders: No Disorders: No HTN: No Hypercholesterolemia: No Kidney Stones: Yes (KIDNEY INFECTION) Liver Disease: No Seizures: No Thyroid Disease: No - Surgical History Abdominal Surgery: No Appendectomy: No Cardiac Surgery: No Cholecystectomy: No Lung Surgery: No Neurologic Surgery: No Orthopedic Surgery: No - Immunization History Immunization Up to Date: Yes - Psycho Social/Smoking Cessation Hx Smoking History: Current every day smoker Have you smoked in the past 12 months: Yes Number of Cigarettes Smoked Daily: 5 Information on smoking cessation initiated: No Hx Alcohol Use: No Drug/Substance Use Hx: No Substance Use Type: None Hx Substance Use Treatment: No Review of Systems - Review of Systems Comments:: 03/31/19 22:36 GENERAL/CONSTITUTIONAL: denies fever, chills, diaphoresis, generalized weakness , malaise, loss of appetite, weight change HEAD, EYES, EARS, NOSE AND THROAT: denies rhinorrhea, nasal congestion, throat pain, throat swelling, difficulty swallowing, mouth swelling, ear pain, eye pain , visual changes NEUROLOGIC: denies headache, focal weakness or paresthesias, dizziness, unsteady gait, seizure, mental status changes, bladder or bowel incontinence CARDIOVASCULAR: denies chest pain, syncope, palpitations, irregular heart rate, lightheadedness, peripheral edema RESPIRATORY: denies cough, shortness of breath, dyspnea with exertion, orthopnea , wheezing, stridor, hemoptysis GASTROINTESTINAL: endorses crampy abdominal pain. Denies abdominal distension, nausea, vomiting, diarrhea, constipation, melena, hematochezia GENITOURINARY: endorses vaginal bleeding. Denies dysuria, frequency, urgency, hesitancy, hematuria, flank pain, genital pain MUSCULOSKELETAL: denies myalgia, arthralgia, joint swelling, back pain, neck pain SKIN: denies rash, itching, pallor HEMATOLOGIC/IMMUNOLOGIC: denies easy bleeding, easy bruising, lymphadenopathy, frequent infections ENDOCRINE: denies unexplained weight gain, unexplained weight loss, heat intolerance, cold intolerance PSYCHIATRIC: denies anxiety, depression, suicidal or homicidal ideation, hallucinations *Physical Exam - Vital Signs Last Vital Signs Temp Pulse Resp BP Pulse Ox 98.0 F 111 H 18 109/66 100 03/31/19 21:01 03/31/19 21:01 03/31/19 21:01 03/31/19 21:01 03/31/19 21:01 - Physical Exam 03/31/19 22:37 GENERAL: Awake, alert, and fully oriented, in no acute distress. HEAD: Normal with no signs of trauma. EYES: Pupils equal, round and reactive to light, extraocular movements intact, sclera anicteric, conjunctiva clear. No lid lag. EARS, NOSE, THROAT: Ears normal, nares patent, oropharynx clear without exudates. Dry mucous membranes. NECK: Normal range of motion, supple without lymphadenopathy, JVD, or masses. LUNGS: Breath sounds equal, clear to auscultation bilaterally. No wheezes, and no crackles. No accessory muscle use. HEART: Tachcyardic, normal S1 and S2 without murmur, rub or gallop. ABDOMEN: Soft, suprapubic tenderness, non-distended, normoactive bowel sounds, negative guarding, negative rebound, no masses. MUSCULOSKELETAL: Normal range of motion at all joints. No bony deformities or tenderness. No CVA tenderness. UPPER EXTREMITIES: 2+ pulses, warm, well-perfused. No cyanosis. No clubbing. Cap refill <2 seconds. No peripheral edema. LOWER EXTREMITIES: 2+ pulses, warm, well-perfused. No calf tenderness. No peripheral edema. NEUROLOGICAL: Cranial nerves II-XII intact. Normal speech. Normal gait. PSYCHIATRIC: Cooperative. Good eye contact. Appropriate mood and affect. SKIN: Warm, dry, normal turgor, no rashes or lesions noted. ED Treatment Course - LABORATORY CBC & Chemistry Diagram: 03/31/19 22:10 03/31/19 22:10 Medical Decision Making - Medical Decision Making 03/31/19 22:40 Concern for spontaneous v ectopic . - CBC, CMP - coags - quant hCG - T+S - UA/UC/u preg 03/31/19 23:01 TVUS with slight endometrial thicking (0.7 cm), 1.4 X 1.3 cm nonspecific echogenic focus in left ovary requiring 6 week follow-up sonography, 04/01/19 00:[address] Palencia, who recommends pain control and outpatient follow up. Does not believe the imaging or lab results are concerning , and the pain and vaginal bleeding are consistent with post-procedural symptoms. Will dc for further outpatient management. Discharge - Discharge Information Problems reviewed: Yes Clinical Impression/Diagnosis: Abdominal pain Condition: Stable Disposition: HOME - Additional Discharge Information Prescriptions: Ibuprofen 800 mg PO TID PRN #15 tablet PRN Reason: Pain - Follow up/Referral Referrals: Tierney Sung MD [Primary Care Provider] - Noa Palencia MD [Staff Physician] - - Patient Discharge Instructions Patient Printed Discharge Instructions: DI for Vaginal Bleeding Additional Instructions: You were seen with abdominal pain and vaginal bleeding after an . Your labs were consistent with a recent , and your pain is likely due to your recent procedure. A transvaginal ultrasound was performed, which showed a 1.4 X 1.3 cyst in your left ovary, which requires follow up. Please call and make an appointment with your OBGYN Dr. Palencia, and go to your upcoming follow up appointment with [facility]. Take 800mg of ibuprofen three times a day as needed for pain; this has been sent to your pharmacy. Return to the ED if you develop worsening symptoms. - Post Discharge Activity
[2019-03-31] MEDS ORDERED: SODIUM CHLORIDE 0.9% 1000 ML INFUS.BAG IV ONE (22:18)
[2019-03-31] MEDS ORDERED: ACETAMINOPHEN 1000 MG/100 ML VIAL (NON FORMULARY) IVPB ONE (22:18)
[2019-03-31 22:33] LABS: BASO % 0.3 % (0-2.0); EOS % 0.3 % (0-4.5); HEMOGLOBIN 11.6 GM/dL (10.7-15.3); LYMPH % 10.2 % (8-40); MCH 29.3 pg (25.7-33.7); MCHC 33.3 g/dl (32.0-36.0); MEAN CELL VOLUME 88.2 fl (80-96); MEAN PLT VOLUME 9.4 fl (7.5-11.1); MONO % 5.6 % (3.8-10.2); NEUT % 83.6 % (42.8-82.8); PLATELET COUNT 172 K/MM3 (134-434); RBC 3.97 M/mm3 (3.60-5.2); RDW 13.8 % (11.6-15.6); WHITE BLOOD COUNT 12.9 K/mm3 (4.0-10.0)
[2019-03-31 22:35] LABS: EPI CELLS 8.1 /HPF (0-5/HPF); HYALINE CASTS 4 /lpf (0-8); URINE APPEARANCE CLOUDY; URINE BACTERIA 615.2 /hpf (NEGATIVE); URINE BILIRUBIN NEGATIVE (NEGATIVE); URINE COLOR YELLOW; URINE GLUCOSE (UA) NEGATIVE (NEGATIVE); URINE KETONE NEGATIVE (NEGATIVE); URINE LEUK ESTERASE TRACE (NEGATIVE); URINE NITRITE NEGATIVE (NEGATIVE); URINE PROTEIN NEGATIVE (NEGATIVE); URINE RBC 4 /hpf (0-4); URINE WBC 21 /hpf (0-5)
--- NOTE | 2019-03-31 22:35 | PDOC ---
Documentation entered by Ale Huitron SCRIBE, acting as scribe for Amirah Porter DO. Amirah Porter DO: This documentation has been prepared by the Elana nicholson Torie, SCRIBE, under my direction and personally reviewed by me in its entirety. I confirm that the documentation accurately reflects all work, treatment, procedures, and medical decision making performed by me. Attending Attestation - Resident Resident Name: Marco Mon - ED Attending Attestation I have performed the following: I have examined & evaluated the patient, The case was reviewed & discussed with the resident, I agree w/resident's findings & plan, Exceptions are as noted - HPI HPI: 03/31/19 22:25 Patient is a 23 year old 7 week female who has a significant medical history of chronic UTIs who presents to the ED today with lower bilateral abdominal pain. Patient reports lower abdomen pain has progressively gotten worse over the past 5 days. She states that she had a D&C 5 days ago. - Physicial Exam PE: 03/31/19 22:24 Constitutional: +Appears in distress. Awake, alert, oriented. Head: Normocephalic. Atraumatic Eyes: PERRL. EOMI. Conjunctivae are not pale. ENT: Mucous membranes are moist and intact. Posterior pharynx without exudates or erythema. Uvula midline. Neck: Supple. Full ROM. No lymphadenopathy. Cardiovascular: +Tachycardic.S1, S2 regular. Distal pulses are 2+ and symmetric. Pulmonary/Chest: No evidence of respiratory distress. Clear to auscultation bilaterally No wheezing, rales or rhonchi. Abdominal: +diffuse lower abdominal tenderness. Soft. No rebound, guarding or rigidity. No organomegaly. No palpable masses. Good bowel sounds. Back: No CVA tenderness. Musculoskeletal: No edema. No cyanosis. No clubbing. Full range of motion in all extremities. Nocalf tenderness. Radial/pedal pulses are intact and 2+ bilaterally Skin: Skin is warm and dry. No petechiae. No purpura. Neurological: Alert and oriented to person, place, and time. Cranial nerves II -XII are grossly intact. Normal speech. Strength is grossly symmetric. No sensory deficits. Psychiatric: Good eye contact. Normal interaction, affect and behavior. - Medical Decision Making 02/13/20 22:30 a/p: 23yo female s/p d&c at [facility] last week -states still with bleeding that has improved, but worsening pain -no f/c -no n/v/d -no dysuria, no hematuria -no vaginal discharge, only bleeding -pt with diffuse ttp over the lower pelvis -will send labs, tvus, will medicate and re-eval 03/31/19 22:56 mildly elevated wbc pt with small amount of fluid within the uterus and poss hemorrhagic vs dermoid cyst to ovary 04/01/19 00:28 resident discussed the case with Dr. Palencia who states pain control and follow up outpt that the ultrasound findings are consistent with a recent d&c will dc home with motrin 800mg tid pt feeling better stable for dc to home
[2019-03-31] MEDS ORDERED: ACETAMINOPHEN INJECTION 100 ML IVPB ONE (22:36)
[2019-03-31 22:47] LABS: INR 0.99 (0.83-1.09); PROTHROMBIN TIME (PATIENT) 11.7 SEC (9.7-13.0)
[2019-03-31 22:50] LABS: ACTIVATED PTT 33.8 SECONDS (25.2-36.5)
[2019-03-31] MEDS ORDERED: KETOROLAC TROMETHAMINE 30 MG/1 ML VIAL IVPUSH ONE (22:56)
[2019-03-31 23:06] LABS: ALBUMIN 3.9 g/dl (3.4-5.0); BILIRUBIN,TOTAL 0.3 mg/dL (0.2-1); BLOOD UREA NITROGEN 15.8 mg/dL (7-18); CALCIUM 9.2 mg/dL (8.5-10.1); CREATININE 0.7 mg/dL (0.55-1.3); POTASSIUM 4.1 mmol/L (3.5-5.1); TOT PROT 7.2 g/dl (6.4-8.2)
[2019-03-31] MEDS ORDERED: morphine CARPU-JECT 4 MG/1 ML DISP.SYRIN IVPUSH ONE (23:12)
[2019-03-31] MEDS ORDERED: IBUPROFEN 600 MG TABLET (FP) PO ONE ×2 (23:12→23:28)
[2019-03-31] MEDS ORDERED: MORPHINE SULFATE 2 MG/ML VIAL ONE (23:28)
[2019-04-01 00:57] VITALS: BP 116/72; PULSE 96
== END 2019-04-01 01:01 | disposition home or self-care (01) ==
LOC: JER 20:56
DX: O04.6 Delayed or excessive hemorrhage following (induced) termination of pregnancy (principal); R10.30 Lower abdominal pain, unspecified; N93.8 Other specified abnormal uterine and vaginal bleeding; N83.202 Unspecified ovarian cyst, left side; F17.210 Nicotine dependence, cigarettes, uncomplicated; Z87.440 Personal history of urinary (tract) infections
CPT/HCPCS: 36415; 76830-TC; 80053; 81003; 84702; 84703; 85025; 85610; 85730; 86850; 86900; 86901; 87086; 99285-25; J0131; J7030

== ENCOUNTER 2019-11-18 01:50 | Emergency (ER) | payer OTHER ==
[2019-11-18 02:08] VITALS: BP 110/68; PULSE 100; TEMP 98.4; BMI 20.5
--- NOTE | 2019-11-18 02:39 | PDOC ---
History of Present Illness - General Chief Complaint: Foreign Body (FB) Stated Complaint: FOREIGN BODY/RT ARM Time Seen by Provider: 11/18/19 02:05 History Source: Patient Exam Limitations: No Limitations - History of Present Illness Initial Comments: 11/18/19 06:16 24y F with no significant pmh presenting to the ER for a needle stuck in her arm. Pt states she was injecting heroin and noticed that the part of the needle was stuck underneath her skin when she removed it. Denies itching, redness, pain, numbness/tingling, decreased ROM. She states the needle was new and she do es not share needles. Tetanus utd. Past History - Medical History Allergies/Adverse Reactions: Allergies Allergy/AdvReac Type Severity Reaction Status Date / Time No Known Allergies Allergy Verified 11/18/19 02:04 Home Medications: Ambulatory Orders Ibuprofen 800 mg PO TID PRN #15 tablet 04/01/19 Anemia: No Asthma: No Cancer: No Cardiac Disorders: No CVA: No COPD: No CHF: No Dementia: No Diabetes: No GI Disorders: No Disorders: No HTN: No Hypercholesterolemia: No Kidney Stones: Yes (KIDNEY INFECTION) Liver Disease: No Seizures: No Thyroid Disease: No - Surgical History Abdominal Surgery: No Appendectomy: No Cardiac Surgery: No Cholecystectomy: No Lung Surgery: No Neurologic Surgery: No Orthopedic Surgery: No - Reproductive History Is Patient Now?: No - Immunization History Immunization Up to Date: Yes - Psycho-Social/Smoking History Smoking History: Never smoked Have you smoked in the past 12 months: No Number of Cigarettes Smoked Daily: 5 Information on smoking cessation initiated: No - Substance Abuse Hx (Audit-C & DAST Scrn) How often the patient has a drink containing alcohol: Monthly or less Number of drinks the patient has on a typical day: 1 or 2 How often the patient has six or more drinks on one occasion: Never Score: In Men: 4 or > Positive; In Women: 3 or > Positive: 1 Screen Result (Pos requires Nsg. Audit-10AR): Negative In the last yr the pt used illegal drug/Rx for NonMed reason: Yes Score: Yes response is considered Positive: 1 Screen Result (Positive result requires Nsg. DAST-10): Positive Review of Systems - Review of Systems Constitutional: No: Symptoms Reported HEENTM: No: Symptoms Reported Respiratory: No: Symptoms reported Cardiac (ROS): No: Symptoms Reported ABD/GI: No: Symptoms Reported : No: Symptoms Reported Musculoskeletal: No: Symptoms Reported Integumentary: Yes: See HPI Neurological: No: Symptoms reported *Physical Exam - Vital Signs Last Vital Signs Temp Pulse Resp BP Pulse Ox 98.4 F 100 H 20 110/68 100 11/18/19 02:04 11/18/19 02:04 11/18/19 02:04 11/18/19 02:04 11/18/19 02:04 - Physical Exam General Appearance: Yes: Nourished, Appropriately Dressed. No: Apparent Distress HEENT: positive: EOMI, TAL, Normal ENT Inspection Neck: positive: Trachea midline, Supple Respiratory/Chest: positive: Lungs Clear, Normal Breath Sounds. negative: Respiratory Distress, Rapid RR, Rhonchi, Stridor Cardiovascular: positive: Regular Rhythm, Regular Rate, S1, S2. negative: Edema, JVD, Murmur Gastrointestinal/Abdominal: positive: Normal Bowel Sounds, Soft. negative: Tender Musculoskeletal: positive: Normal Inspection. negative: Vertebral Tenderness Extremity: positive: Normal Capillary Refill. negative: Pedal Edema, Swelling Integumentary: positive: Normal Color, Dry, Warm, Other (multiple track calderon on R forearm. No FB seen. No active bleeding or nodules. No erythema, warmth, fluctuance or induration) Neurologic: positive: director of quality II-XII NML intact, Fully Oriented, Alert, Normal Mood/Affect, Normal Response, Motor Strength 5/5 ED Treatment Course - RADIOLOGY Radiology Studies Ordered: Category Date Time Status FOREARM- RIGHT [RAD] Stat Radiology 11/18/19 02:09 Taken Medical Decision Making - Medical Decision Making 11/18/19 06:19 24y F presenting to the eR for FB in the R forearm. FB is a needle tip from an insulin syringe. external exam shows track calderon but otherwise no obvious signs of trauma or lacerations. no signs of infection -xr performed to evaulate for fb. radiopaque fb seen which is consistent with needle tip in R forearm. pulses intact. does not require removal at this time. advised pt to not pick at or attempt to remove fb. care instructions and return precautions provided. tetanus utd. Discharge - Discharge Information Problems reviewed: Yes Clinical Impression/Diagnosis: Foreign body (FB) in soft tissue Condition: Fair Disposition: HOME - Admission No - Follow up/Referral Referrals: Tierney Sung MD [Primary Care Provider] - - Patient Discharge Instructions Additional Instructions: You were seen in the ER for a foreign body in the arm. This should come out on it's own or it will stay inside and the body will form a scar around it. Do not try to dig it out. Come back to the ER if you notice increasing swelling, if there is increasing pain, if there is pus or if any new or concerning symptom develops. Thank you - Post Discharge Activity
--- NOTE | 2019-11-18 02:41 | PDOC ---
Attending Attestation - Resident Resident Name: Lyndsay Yan - ED Attending Attestation I have performed the following: I have examined & evaluated the patient, The case was reviewed & discussed with the resident, I agree w/resident's findings & plan, Exceptions are as noted - HPI HPI: 11/18/19 06:56 See resident HPI - Physicial Exam PE: 11/18/19 06:57 Agree with documented exam - Medical Decision Making 11/18/19 06:57 FB in arm, needle tip? f/u xr +radio-opaque needle like object in arm no signs of infection dc Discharge - Discharge Information Problems reviewed: Yes Clinical Impression/Diagnosis: Foreign body (FB) in soft tissue Condition: Fair Disposition: HOME - Follow up/Referral Referrals: Tierney Sung MD [Primary Care Provider] - - Patient Discharge Instructions Additional Instructions: You were seen in the ER for a foreign body in the arm. This should come out on it's own or it will stay inside and the body will form a scar around it. Do not try to dig it out. Come back to the ER if you notice increasing swelling, if there is increasing pain, if there is pus or if any new or concerning symptom develops. Thank you - Post Discharge Activity
--- OUTSIDE RECORDS SUMMARY | 2019-11-18 04:56 | XMS ---
:1995 Author Organization [facility] Care Team Providers Name Role Phone SLAVA WINSLOW MD Unavailable Unavailable GENNARO WINSLOW MD Unavailable Unavailable GENNARO WINSLOW MD Unavailable Unavailable GENNARO WINSLOW MD Unavailable Unavailable ED STAFF PHYSICIAN Unavailable Unavailable EMERGENCY Unavailable Unavailable Re-disclosure Warning The records that you are about to access may contain information from federally- assisted alcohol or drug abuse programs. If such information is present, then the following federally mandated warning applies: This information has been disclosed to you from records protected by federal confidentiality rules (42 CFR part 2). The federal rules prohibit you from making any further disclosure of this information unless further disclosure is expressly permitted by the written consent of the person to whom it pertains or as otherwise permitted by 42 CFR part 2. A general authorization for the release of medical or other information is NOT sufficient for this purpose. The Federal rules restrict any use of the information to criminally investigate or prosecute any alcohol or drug abuse patient.The records that you are about to access may contain highly sensitive health information, the redisclosure of which is protected by Article 27-F of the [facility] Public Health law. If you continue you may haveaccess to information: Regarding HIV / AIDS; Provided by facilities licensed or operated by the [facility] Office of Mental Health; or Provided by the [facility] Office for People With Developmental Disabilities. If such information is present, then the following [facility] mandated warning applies: This information has been disclosed to you from confidential records which are protected by state law. State law prohibits you from making any further disclosure of this information without the specific written consent of the person to whom it pertains, or as otherwise permitted by law. Any unauthorized further disclosure in violation of state law may result in a fine or longterm sentence or both. A general authorization for the release of medical or other information is NOT sufficient authorization for further disclosure. Advance Directives Directive Description Chemistry Laboratory Technician Supervisory It Specialist Status Observation Data S ource(s) Description 1. NONE [facility] ital 1. NONE [facility] ital 1. NONE [facility] 1. NONE [facility] ital 1. NONE [facility] 1. NONE [facility] 1. NONE [facility] 1. NONE [facility] 1. NONE [facility] ital 1. NONE [facility] ital 1. NONE [facility] ital 1. NONE [facility] ital 1. NONE [facility] ital 1. NONE [facility] ital 1. NONE [facility] ital Allergies and Adverse Reactions Type Description Substance Reaction Status Data Source(s ) No Known No Known Allergies No Known eCW3 ( [place] [facility] Allergies [facility]) No Known No Known Allergies No Known eCW3 ( [place] Allergies Allergies [facility]) No Known No Known Allergies No Known eCW3 ( [place] Allergies Allergies [facility]) No Known No Known Allergies No Known eCW3 ( [place] Allergies Allergies [facility]) No Known No Known Allergies No Known eCW3 ( [place] Allergies Allergies [facility]) No Known No Known Allergies No Known eCW3 ( [place] Allergies Allergies [facility]) No Known No Known Allergies No Known eCW3 ( [place] Allergies Allergies [facility]) No Known No Known Allergies No known eCW3 ( [place] Allergies allergies [facility] (situation) Care) No Known No Known Allergies No known eCW3 ( [place] Allergies allergies [facility] (situation) Care) Encounters Encounter Providers Location Date Indications Data Source(s ) Outpatient Attender: DOCTOR MCKEON-ER 09/10/2019 detox [facility] EMERGENCYAttender: SLAVA 02:10:00 PM EDT GOLDY MDAdmitter: SLAVA - 09/10/2019 GOLDY CASTAÑEDA 03:43:00 PM EDT detox Patient discharged. Outpatient [facility] 11/24/2018 eCW3 ([facility] 12:00:00 AM EDT [facility] 11/24/2018 Care) 12:00:00 AM EDT Outpatient [facility] 11/02/2018 eCW3 ([facility] 12:00:00 AM EDT [facility] 11/02/2018 Care) 12:00:00 AM EDT (NBillable) [facility] 10/20/2018 eCW3 ([facility]/Outreach/Nursi Care [facility] A28 12:00:00 AM EDT [facility] ng/Care Management 10/20/2018 Care) 12:00:00 AM EDT Outpatient [facility] 10/06/2018 eCW3 ([facility] 12:00:00 AM EDT [facility] 10/06/2018 Care) 12:00:00 AM EDT Outpatient [facility] 09/07/2018 eCW3 ([facility] 12:00:00 AM EDT [facility] 09/07/2018 Care) 12:00:00 AM EDT Emergency Attender: CAROLINA Monet-NICKY 07/21/2018 [facility] ED STAFF 12:33:00 PM EDT Medical C enter PHYSICIAN Emergency H 07/19/2018 [facility] 12:23:00 PM EDT Medical C enter Outpatient [facility] 07/13/2018 eCW3 ([facility] A[facility] 12:00:00 AM EDT [facility] 07/13/2018 Care) 12:00:00 AM EDT Emergency H 06/11/2018 [facility] 08:32:00 PM EDT Medical C enter Emergency Attender: CAROLINA Monet 06/09/2018 [facility] ED STAFF 05:01:00 PM EDT Medical C enter PHYSICIANAdmitter : CAROLINA ED STAFF PHYSICIAN Outpatient [facility] 05/25/2018 eCW3 ([facility] A28 12:00:00 AM EDT - [facility] 05/25/2018 Care) 12:00:00 AM EDT Outpatient [facility] 04/06/2018 eCW3 ([facility] A28 12:00:00 AM [facility] 04/06/2018 Care) 12:00:00 AM EST Est Psych [facility] 04/01/2018 eCW3 ([facility] A28 12:00:00 AM [facility] 04/01/2018 Care) 12:00:00 AM EST Immunizations Vaccine Date Status Description Data Source(s) IIV3. This vaccine code is 02/28/2014 completed e CW3 ([place] one of two which replace 11:49:00 AM [facility]) CVX 15, influenza, split virus. LAIV3 01/06/2013 completed eCW3 ([place] [facility] car[facility] 04:49:44 PM [facility]) LAIV3 11/18/2011 completed eCW3 ([place] [facility] 03:20:24 PM [facility]) Hep A, ped/adol, 2 dose 11/18/2011 completed eCW3 ([place] 03:20:18 PM [facility]) meningococcal MCV4P 10/03/2010 [facility] 10:15:34 AM [facility]) Hep A, ped/adol, 2 dose 10/03/2010 completed eCW3 ([place] 10:15:19 AM [facility]) varicella 10/03/2010 completed eCW3 ([place] [facility] car[facility] 10:15:15 AM [facility]) IIV3. This is one of two 02/13/2010 completed eCW 3 ([place] codes replacing CVX 15, 11:09:08 AM [facility]) which is being retired. IIV3. This is one of two 01/10/2009 completed eCW 3 ([place] codes replacing CVX 15, 08:19:14 AM [facility]) which is being retired. Novel [id number] completed eCW3 ([facility]) Medications Medication Brand Start Product Dose Route Administrative Pharmacy St atus Indications Reaction Description Data Name Date Form Instructions Instructions Source(s) Clonidine Clonid .0 active Clonidine eCW3 Hydrochlori ine 2018 {tabl HCl 0.1 MG ( [place] de 0.1 MG HCl 12:00: et} [facility] Oral Tablet 0.1 MG 00 AM Healt h Clonidine EDT Care) HCl 0.1 MG Clonidine Clonid 1.0 active Clonidine eCW3 Hydrochlori ine 2018 {tabl HCl 0.1 MG ( [place] de 0.1 MG HCl 12:00: et} [facility] Tablet 0.1 MG 00 AM Healt h Clonidine EDT Care) HCl 0.1 MG Clonidine Clonid .0 active Clonidine eCW3 Hydrochlori ine 2018 {tabl HCl 0.1 MG ( [place] de 0.1 MG HCl 12:00: et} [facility] Tablet 0.1 MG 00 AM Healt h Clonidine EDT Care) HCl 0.1 MG Clonidine Clonid .0 active Clonidine eCW3 Hydrochlori ine 2018 {tabl HCl 0.1 MG ( [place] de 0.1 MG HCl 12:00: et} [facility] Tablet 0.1 MG 00 AM Healt h Clonidine EDT Care) HCl 0.1 MG Clonidine Clonid .0 active Clonidine eCW3 Hydrochlori ine 2018 {tabl HCl 0.1 MG ( [place] de 0.1 MG HCl 12:00: et} [facility] Tablet 0.1 MG 00 AM Healt h Clonidine EDT Care) HCl 0.1 MG Clonidine Clonid 1.0 suspend Clonidin e eCW3 Hydrochlori ine 2018 {tabl ed HCl 0.1 MG ( [place] de 0.1 MG HCl 12:00: et} [facility] Tablet 0.1 MG 00 AM Healt h Clonidine EDT Care) HCl 0.1 MG Clonidine Clonid .0 active Clonidine eCW3 Hydrochlori ine 2018 {tabl HCl 0.1 MG ( [place] de 0.1 MG HCl 12:00: et} [facility] Tablet 0.1 MG 00 AM Healt h Clonidine EDT Care) HCl 0.1 MG Levonorgest PLAN B 10/06/ suspend PLAN B eCW3 rel 1.5 MG ONE-2018 ed ONE-STEP 1.5 ([place] [facility] Tablet EP 1.5 12:00: MG Rive r [Plan B MG 00 AM Health One-Step] EDT Care) PLAN B ONE-STEP 1.5 MG Levonorgest PLAN B 10/06/ suspend PLAN B eCW3 rel 1.5 MG 2018 ed ONE-STEP 1.5 ([place] [facility] Tablet EP 1.5 12:00: MG R[facility] [Plan B MG 00 AM Health One-Step] EDT Care) PLAN B ONE-STEP 1.5 MG Levonorgest PLAN B suspend PLAN B eCW3 rel 1.5 MG 2018 ed ONE-STEP 1.5 ([place] [facility] Tablet EP 1.5 12:00: MG Rive [facility] [Plan B MG 00 AM Health One-Step] EDT Care) PLAN B ONE-STEP 1.5 MG Levonorgest PLAN B 10/06/ suspend PLAN B eCW3 rel 1.5 MG 2018 ed ONE-STEP 1.5 ([place] [facility] Tablet EP 1.5 12:00: MG R[place] [Plan B MG 00 AM Health One-Step] EDT Care) PLAN B ONE-STEP 1.5 MG Levonorgest PLAN B 10/06/ suspend PLAN B eCW3 rel 1.5 MG 2018 ed ONE-STEP 1.5 ([place] [facility] Tablet EP 1.5 12:00: MG Rive r [Plan B MG 00 AM Health One-Step] EDT Care) PLAN B ONE-STEP 1.5 MG Levonorgest PLAN B suspend PLAN B eCW3 rel 1.5 MG 2018 ed ONE-STEP 1.5 ([place] [facility] Tablet EP 1.5 12:00: MG Rive r [Plan B MG 00 AM Health One-Step] EDT Care) PLAN B ONE-STEP 1.5 MG Levonorgest PLAN B suspend PLAN B eCW3 rel 1.5 MG 2018 ed ONE-STEP 1.5 ([place] [facility] Tablet EP 1.5 12:00: MG Rive [facility] [Plan B MG 00 AM Health One-Step] EDT Care) PLAN B ONE-STEP 1.5 MG 03/07/ 1.0 suspend eCW3 1-20 MG-MCG 03/07 2018 {tabl ed 1-20 MG-MCG ([place] 120 12:00: et} [place] MG-MCG AM Health EDT Care) 03/07.0 suspend eCW3 1-20 MG-MCG 03/07 2018 {tabl ed 1-20 MG-MCG ([place] 120 12:00: et} [facility] MG-MCG AM Health EDT Care) 03/07.0 suspend eCW3 1-20 MG-MCG 03/07 2018 {tabl ed 1-20 MG-MCG ([place] 120 12:00: et} [place] MG-MCG AM Health EDT Care) 03/07.0 suspend eCW3 1-20 MG-MCG 03/07 2018 {tabl ed 1-20 MG-MCG ([place] 120 12:00: et} [facility] MG-MCG AM Health EDT Care) 03/07.0 suspend eCW3 1-20 MG-MCG 03/07 2018 {tabl ed 1-20 MG-MCG ([place] 120 12:00: et} [place] MG-MCG AM Health EDT Care) 03/07.0 active 02/17 eCW3 1-20 MG-MCG 03/07 2018 {tabl 1-20 MG-MCG ([place] 120 12:00: et} [place] MG-MCG 00 AM Health EDT Care) 03/07.0 suspend eCW3 1-20 MG-MCG 03/07 2018 {tabl ed 1-20 MG-MCG ([place] 120 12:00: et} [place] MG-MCG 00 AM Health EDT Care) 03/07.0 suspend eCW3 1-20 MG-MCG 03/07 2018 {tabl ed 1-20 MG-MCG ([place] 1-20 12:00: et} [place] MG-MCG 00 AM Health EDT Care) Docusate Docusa .0 active Docusate e CW3 Sodium 100 te 2018 {caps Sodium 100 (H ud[facility] MG Oral Sodium 12:00: ule_a MG [place] Capsule 100 MG 00 AM s_nee Health EST ded} Care) Docusate Docusa .0 active Docusate e CW3 Sodium 100 te 2018 {caps Sodium 100 ([facility] MG Oral Sodium 12:00: ule_a MG [place] Capsule 100 MG 00 AM s_[facility] Health EST ded} Care) Triamcinolo Triamc .0 suspend Triamc inolon eCW3 ne inolon 2015 {appl ed e Acetonide ([facility] Acetonide 1 e 12:00: icati 0.1 % [facility] MG/ML Aceton 00 AM on_to Health Topical marcus EDT _affe Care) Cream 0.1 % cted_ Triamcinolo area} ne Acetonide 0.1 % Triamcinolo Triamc .0 active Triamci nolon eCW3 ne inolon 2015 {appl e Acetonide ([facility] Acetonide 1 e 12:00: icati 0.1 % R[facility] MG/ML Aceton 00 AM on_to Health Topical marcus EDT _affe Care) Cream 0.1 % cted_ Triamcinolo area} ne Acetonide 0.1 % Triamcinolo Triamc .0 suspend Triamc inolon eCW3 ne inolon 2015 {appl ed e Acetonide ([facility] Acetonide 1 e 12:00: icati 0.1 % Rive r MG/ML Aceton 00 AM on_to Health Topical marcus EDT _affe Care) Cream 0.1 % cted_ Triamcinolo area} ne Acetonide 0.1 % Triamcinolo Triamc .0 suspend Triamc inolon eCW3 ne inolon 2015 {appl ed e Acetonide ([facility] Acetonide 1 e 12:00: icati 0.1 % Rive r MG/ML Aceton 00 AM on_to Health Topical marcus EDT _affe Care) Cream 0.1 % cted_ Triamcinolo area} ne Acetonide 0.1 % Triamcinolo Triamc .0 active Triamci nolon eCW3 ne inolon 2015 {appl e Acetonide ([facility] Acetonide 1 e 12:00: icati 0.1 % Rive r MG/ML Aceton 00 AM on_to Health Topical marcus EDT _affe Care) Cream 0.1 % cted_ Triamcinolo area} ne Acetonide 0.1 % Triamcinolo Triamc .0 suspend Triamc inolon eCW3 ne inolon 2015 {appl ed e Acetonide ([facility] Acetonide 1 e 12:00: icati 0.1 % Rive r MG/ML Aceton 00 AM on_to Health Topical marcus EDT _affe Care) Cream 0.1 % cted_ Triamcinolo area} ne Acetonide 0.1 % Triamcinolo Triamc .0 suspend Triamc inolon eCW3 ne inolon 2015 {appl ed e Acetonide ([facility] Acetonide 1 e 12:00: icati 0.1 % Rive r MG/ML Aceton 00 AM on_to Health Topical marcus EDT _affe Care) Cream 0.1 % cted_ Triamcinolo area} ne Acetonide 0.1 % Triamcinolo Triamc .0 suspend Triamc inolon eCW3 ne inolon 2015 {appl ed e Acetonide ([facility] Acetonide 1 e 12:00: icati 0.1 % Rive r MG/ML Aceton 00 AM on_to Health Topical marcus EDT _affe Care) Cream 0.1 % cted_ Triamcinolo area} ne Acetonide 0.1 % Triamcinolo Triamc .0 suspend Triamc inolon eCW3 ne inolon 2015 {appl ed e Acetonide ([facility] Acetonide 1 e 12:00: icati 0.1 % Rive [facility] MG/ML Aceton 00 AM on_to Health Topical marcus EDT _affe Care) Cream 0.1 % cted_ Triamcinolo area} ne Acetonide 0.1 % Buprenorphi Suboxo active Suboxone 8-2 eCW3 ne 8 MG / ne 8-2 MG ([place] Naloxone 2 MG [facility] Strip Care) [Suboxone] Suboxone 8-2 MG Sulfamethox sulfam 1 complet Von nt azole 800 ethoxa ed Gomez MG / zole-t Medical Trimethopri rimeth Center m 160 MG oprim Oral Tablet 800 sulfamethox mg-160 azole-trime mg thoprim 800 Tablet mg-160 mg , Tablet, Ordere Ordered By: d By: Oziel Pérez, Karen GALINDOPDirectio McIntsukhi ns: 1 re, tablet oral FNPDir every ection twelve s: 1 hours tablet oral every twelve hours Ibuprofen ibupro 1 complet [facility] 600 MG Oral fen ed Gomez Tablet 600 mg Medical ibuprofen Tablet Center 600 mg , Tablet, Ordere Ordered By: d By: Oziel Lauyre, Karen FNPDirectio McInty ns: 1 re, tablet oral FNPDir every six ection hours PRN s: 1 pain tablet oral every six hours PRN pain Insurance Providers Payer name Policy type Policy ID Covered Covered libertarian's Policy P prema / Coverage libertarian ID relationship to Bernard Inf ormation type bernard [facility] [id number] [place] [address] [facility] [employer]ARE [id number] Patient is [id number] [place] Ins[place] MEDICAID [id number] Patient is [id number] Insured [facility] 99 Patient is 99 [place] [employer] [id number] [employer] [employer]ARE [id number] Problems, Conditions, and Diagnoses Code Display Name Description Problem Type Effective Data Dates Source(s) F11.23 Opioid withdrawal Opioid withdrawal Problem 10/19/2018 eCW3 ([place] [facility] F32.9 Minimal depression Minimal depression Problem 9 eCW3 ([place] 12:00:[facility] F32.0 Mild depression Mild depression Problem 05/11/2018 eCW3 ([place] 12:00:00 AM [facility] EDT Care) F32.0 Mild depression Mild depression Problem 05/11/2018 eCW3 ([place] 12:00:00 AM [facility] EDT Care) F39 Mood disorder Mood disorder Problem 04/07/2018 eCW3 ([facility] 12:00:00 AM [facility] EST Care) F39 Mood disorder Mood disorder Problem 04/07/2018 eCW3 ([facility] 12:00:00 AM [facility] EST Care) F11.99 Opioid use Opioid use Problem 03/17/2018 eCW3 ([place] disorder disorder 12:00:00 AM [facility] EST Care) F11.99 Opioid use Opioid use Problem 03/17/2018 eCW3 ([place] disorder disorder 12:00:00 AM [facility] EST Care) N92.6 Missed period Missed menses Problem 09/02/2016 eCW3 ([facility] 12:00:00 AM [facility] EDT Care) F41.8 Anxiety Situational Problem 09/02/2016 eCW3 ([place] anxiety 12:00:00 AM [facility] EDT Care) F41.8 Anxiety Situational Problem 09/02/2016 eCW3 ([place] anxiety 12:00:00 AM [facility] EDT Care) F41.8 Anxiety Situational Problem 09/02/2016 eCW3 ([place] anxiety 12:00:00 AM [facility] EDT Care) N92.6 Missed period Missed menses Problem 09/02/2016 eCW3 ([facility] 12:00:00 AM [facility] EDT Care) R21 Rash Rash Problem 06/04/2015 eCW3 ([place] 12:00:00 AM [facility] EDT Care) R21 Rash Rash Problem 06/04/2015 eCW3 ([place] 12:00:00 AM [facility] EDT Care) 367.1 Myopia Myopia Problem 09/08/2014 eCW3 ([place] 12:00:00 AM [facility] EDT Care) 379.24 Vitreous opacities Vitreous floater Problem 09/08/2014 eCW3 ([place] 12:00:00 AM [facility] EDT Care) 379.24 Vitreous opacities Vitreous floater Problem 09/08/2014 eCW3 ([place] 12:00:00 AM [facility] EDT Care) 367.1 Myopia Myopia Problem 09/08/2014 eCW3 ([place] 12:00:00 AM [facility] EDT Care) 795.51 Nonspecific TB/PPD Skin test Problem eCW3 ([facility] tuberculin test positive [facility] a lth reaction Care) 795.51 Nonspecific TB/PPD Skin test Problem eCW3 ([facility] tuberculin test positive [facility] a lth reaction Care) 795.51 Nonspecific TB/PPD Skin test Problem eCW3 ([facility] tuberculin test positive [facility] a lth reaction Care) F11.10 Opioid abuse, OPIOID ABUSE, Diagnosis 09/13/2019 [place] uncomplicated UNCOMPLICATED 03:46:00 PM Hospita l EDT Z48.00 Encounter for ENCOUNTER FOR Diagnosis 07/21/2018 [facility] change or removal CHANGE OR REMOVAL 12:33:00 PM Medical of nonsurgical OF NONSURG WOUND EDT Cent er wound dressing DRESSING L02.415 Cutaneous abscess CUTANEOUS ABSCESS Diagnosis 07/19/2018 [facility] of right lower OF RIGHT LOWER 12:23:00 PM Medic al limb LIMB EDT Center R07.89 Other chest pain OTHER CHEST PAIN Diagnosis 06/11/2018 [facility] 08:32:00 PM Medical EDT Center R07.9 Chest pain, CHEST PAIN, Diagnosis 06/11/2018 [facility] unspecified UNSPECIFIED 08:32:00 PM Medical EDT Center Y99.8 Other external OTHER EXTERNAL Diagnosis 06/09/2018 [facility] cause status CAUSE STATUS 05:01:00 PM Medical EDT Center Y92.[address] IN UNSP Diagnosis 06/09/2018 [facility] in unspecified NON-INSTITUT 05:01:00 PM Medical non-institutional (PRIVATE) EDT Center (private) RESIDENCE PLACE residence as the place of occurrence of the external cause Y93.9 Activity, ACTIVITY, Diagnosis 06/09/2018 [facility] unspecified UNSPECIFIED 05:01:00 PM Medical EDT Center W01.0XXA Fall on same level FALL SAME LEV FROM Diagnosis 9 [facility] from slipping, SLIP/TRIP W/O 05:01:00 PM Medica l tripping and STRIKE AGAINST EDT Center stumbling without OBJECT, INIT subsequent striking against object, initial encounter S05.11XA Contusion of CONTUSION OF Diagnosis 06/09/2018 [facility] eyeball and EYEBALL AND 05:01:00 PM Medical orbital tissues, ORBITAL TISSUES, EDT Ce nter right eye, initial RIGHT EYE, INIT encounter S70.01XA Contusion of right CONTUSION OF RIGHT Diagnosis 9 [facility] hip, initial HIP, INITIAL 05:01:00 PM Medical encounter ENCOUNTER EDT Center S43.401A Unspecified sprain UNSPECIFIED SPRAIN Diagnosis 9 [facility] of right shoulder OF RIGHT SHOULDER 05:01:00 PM Medical joint, initial JOINT, INIT ENCNTR EDT Ce nter encounter Results ID Date Data Source [id number] 10/07/2019 04:23:00 PM EDT [facility] Name Value Range Interpretation Code Description Data Karin rce(s) Supporting Document(s ) SARS-COV-2 [facility] RESP Diagnostics QL KAILA+PROBE This lab was ordered by [facility] and reported by [facility] DUONG. ID Date Data Source [id number] 07/19/2018 01:51:00 PM EDT [facility] 400 Name Value Range Interpretation Code Description Data Karin rce(s) Supporting Document(s ) UNK <item><content [facility] styleCode="Bold"> Medical Cent er Culture Report </content>
<t able><tbody><tr>< td>Specimen Number:</td><td>[id number]</td></tr ><tr><td>Sample Collection Date/Time: </td><td>07/19/2018 1:51 PM</td></tr><tr>< td>Specimen Source:</td><td>T HIGH</td></tr><tr ><td>Wound Culture:</td><td> Collection Plate Date: 07/19/2018 13:59 </td></tr><tr><td >Culture Status:</td><td>P reliminary </td></tr><tr><td >Culture Report:</td><td>C ulture in progress </td></tr></tbody ></table></item> UNK <item><content [facility] styleCode="Bold"> Medical Cent er Culture Status </content>
<t able><tbody><tr>< td>Specimen Number:</td><td>[id number]</td></tr ><tr><td>Sample Collection Date/Time: </td><td>07/19/2018 1:51 PM</td></tr><tr>< td>Specimen Source:</td><td>T HIGH</td></tr><tr ><td>Culture Status:</td><td>P reliminary </td></tr><tr><td >Culture Report:</td><td>C ulture in progress </td></tr><tr><td >Wound Culture:</td><td> Collection Plate Date: 07/19/2018 13:59 </td></tr></tbody ></table></item> ID Date Data Source Coagulation Rout 06/11/2018 10:10:00 PM EDT [facility] Name Value Range Interpretation Description Data Sup porting Code Source(s) Document(s ) UNK 9.0-13.0 Above high normal <content [facility] styleCode="Rafy Gomez d">[facility] </content>13.7 Center SEC H<content styleCode="Petty lics"> (9.0-13.0 SEC)</content> INR in 0.80-1.2 Above high normal <content [facility] Platelet poor 0 styleCode="[facility] plasma by d">INR Medical Coagulation </content>1.21 Center assay # H<content styleCode="Petty lics"> (0.80-1.20 #)</content> UNK < 500 Above upper panic <content [facility] limits styleCode="Rafy Gomez d">D-[facility] Medical </content><con Center tent styleCode="Rafy d">520 ngFEU HH</content><c ontent styleCode="Petty lics"> (< 500 ngFEU)</conten t> ID Date Data Source Urinalysis 06/11/2018 09:12:00 PM EDT [facility] Name Value Range Interpretation Description Data Sup porting Code Source(s) Document(s ) Color of Urine YELLOW <content [facility] styleCode="Rafy Chungs d">Color, Medical Urine Center </content>YELL OW <content styleCode="Petty lics"> (YELLOW )</content> Glucose NEGATIVE <content [facility] [Mass/volume] styleCode="Rafy Chungs in Urine by d">Urine Medical Test strip Glucose Center </content>NEGA TIVE MG/DL<content styleCode="Petty lics"> (NEGATIVE MG/DL)</conten t> Ketones NEGATIVE <content [facility] [Mass/volume] styleCode="Rafy Chungs in Urine by d">Urine Medical Test strip Ketone Center </content>TRAC E MG/DL<content styleCode="Petty lics"> (NEGATIVE MG/DL)</conten t> UNK CLEAR <content [facility] styleCode="Rafy Chungs d">Urine Medical Clarity Center </content>ANTWAN R <content styleCode="Petty lics"> (CLEAR )</content> UNK NEGATIVE <content Saint styleCode="Rafy Chungs d">Urine Medical Bilirubin Center </content>NEGA TIVE <content styleCode="Petty lics"> (NEGATIVE )</content> Hemoglobin NEGATIVE <content [facility] [Presence] in styleCode="Rafy Dyer Urine by Test d">Urine Blood Medical strip </content>NEGA Center TIVE <content styleCode="Petty lics"> (NEGATIVE )</content> Specific 1.015-1.02 <content [facility] gravity of 5 styleCode="Rafy Dyer Urine by Test d">Urine Medical strip Specific Center [place] </content>1.02 5 <content styleCode="Petty lics"> (1.015-1.025 )</content> Leukocyte NEGATIVE <content [facility] esterase styleCode="Rafy Dyer [Presence] in d">Urine Medical Urine by Test Leukocyte Center strip </content>TRAC E <content styleCode="Petty lics"> (NEGATIVE )</content> pH of Urine by 4.5-8.0 <content [facility] Test strip styleCode="Rafy Gomez d">Urine pH Medical </content>6.0 Center <content styleCode="Petty lics"> (4.5-8.0 )</content> UNK 0-3 <content Saint styleCode="Rafy Gomez d">Urine Red Medical Blood Cell Center </content>3-5 HPF<content styleCode="Petty lics"> (0-3 HPF)</content> Urobilinogen 0.2-1.0 <content [facility] [Units/volume] styleCode="Rafy Gomez in Urine by d">Urine Medical Test strip Urobilinogen Center </content>0.2 MG/DL<content styleCode="Petty lics"> (0.2-1.0 MG/DL)</conten t> Protein NEGATIVE <content [facility] [Mass/volume] styleCode="Rafy Gomez in Urine by d">Urine Medical Test strip Protein Center </content>NEGA TIVE MG/DL<content styleCode="Petty lics"> (NEGATIVE MG/DL)</conten t> Nitrite NEGATIVE <content Saint [Presence] in styleCode="Rafy Chungs Urine by Test d">Urine Medical strip Nitrite Center </content>NEGA TIVE <content styleCode="Petty lics"> (NEGATIVE )</content> UNK NEGATIVE <content Saint styleCode="Rafy Gomez d">Urine Medical Bacteria Center </content>MODE RATE HPF<content styleCode="Petty lics"> (NEGATIVE HPF)</content> UNK <content Saint styleCode="Rafy Gomez d">Epithelial Medical Cell Center </content>10 - 20 LPF (Reference Range: not available)<br/ > UNK NONE SEEN <content [facility] styleCode="Rafy Gomez d">Urine Mucus Medical </content>MODE Center RATE LPF<content styleCode="Petty lics"> (NONE SEEN LPF)</content> UNK 0-3 <content Saint styleCode="Rafy Gomez d">Urine White Medical Blood Cell Center </content>0-3 HPF<content styleCode="Petty lics"> (0-3 HPF)</content> UNK CLEAR <content Saint styleCode="Rafy Gomez d">Urine Medical Clarity Center </content>HAZY <content styleCode="Petty lics"> (CLEAR )</content> Color of Urine YELLOW <content Saint styleCode="Rafy Gomez d">Color, Medical Urine Center </content>YELL OW <content styleCode="Petty lics"> (YELLOW )</content> Hemoglobin NEGATIVE <content [facility] [Presence] in styleCode="Rafy Chungs Urine by Test d">Urine Blood Medical strip </content>NEGA Center TIVE <content styleCode="Petty lics"> (NEGATIVE )</content> Specific 1.015-1.02 <content [facility] gravity of 5 styleCode="Rafy Chungs Urine by Test d">Urine Medical strip Specific Center [place] </content>1.02 5 <content styleCode="Petty lics"> (1.015-1.025 )</content> Ketones NEGATIVE <content [facility] [Mass/volume] styleCode="Rafy Gomez in Urine by d">Urine Medical Test strip Ketone Center </content>NEGA TIVE MG/DL<content styleCode="Petty lics"> (NEGATIVE MG/DL)</conten t> UNK NEGATIVE <content [facility] styleCode="Rafy Gomez d">Urine Medical Bilirubin Center </content>NEGA TIVE <content styleCode="Petty lics"> (NEGATIVE )</content> Glucose NEGATIVE <content [facility] [Mass/volume] styleCode="Rafy Gomez in Urine by d">Urine Medical Test strip Glucose Center </content>NEGA TIVE MG/DL<content styleCode="Petty lics"> (NEGATIVE MG/DL)</conten t> Leukocyte NEGATIVE <content Saint esterase styleCode="Rafy Gomez [Presence] in d">Urine Medical Urine by Test Leukocyte Center strip </content>SMAL L <content styleCode="Petty lics"> (NEGATIVE )</content> Nitrite NEGATIVE <content [facility] [Presence] in styleCode="Rafy Gomez Urine by Test d">Urine Medical strip Nitrite Center </content>NEGA TIVE <content styleCode="Petty lics"> (NEGATIVE )</content> Urobilinogen 0.2-1.0 <content [facility] [Units/volume] styleCode="Rafy Gomez in Urine by d">Urine Medical Test strip Urobilinogen Center </content>1.0 MG/DL<content styleCode="Petty lics"> (0.2-1.0 MG/DL)</conten t> Protein NEGATIVE <content [facility] [Mass/volume] styleCode="Rafy Gomez in Urine by d">Urine Medical Test strip Protein Center </content>NEGA TIVE MG/DL<content styleCode="Petty lics"> (NEGATIVE MG/DL)</conten t> pH of Urine by 4.5-8.0 <content Saint Test strip styleCode="Rafy Gomez d">Urine pH Medical </content>6.5 Center <content styleCode="Petty lics"> (4.5-8.0 )</content> UNK <content Saint styleCode="Rafy Gomez d">Epithelial Medical Cell Center </content>20-2 5 LPF (Reference Range: not available)<br/ > UNK NEGATIVE <content [facility] styleCode="Rafy Gomez d">Urine Medical Bacteria Center </content>FEW HPF<content styleCode="Petty lics"> (NEGATIVE HPF)</content> UNK 0-3 <content [facility] styleCode="Rafy Gomez d">Urine White Medical Blood Cell Center </content>3-5 HPF<content styleCode="Petty lics"> (0-3 HPF)</content> UNK 0-3 <content Saint styleCode="Rafy Gomez d">Urine Red Medical Blood Cell Center </content>0-3 HPF<content styleCode="Petty lics"> (0-3 HPF)</content> ID Date Data Source Microbiology 06/11/2018 09:12:00 PM EDT [facility] Name Value Range Interpretation Code Description Data Karin rce(s) Supporting Document(s ) UNK <item[facility] Culture Status </content>
<t able><tbody><tr>< td>Specimen Number:</td><td>[id number]</td></tr ><tr><td>Sample Collection Date/Time: </td><td> 9 9:12 PM</td></tr><tr>< td>Specimen Source:</td><td>U RINE</td></tr><tr ><td>Culture Status:</td><td>P reliminary </td></tr><tr><td >Culture Report:</td><td>C ulture in progress </td></tr><tr><td >Urine Culture:</td><td> Collection Plate Date: 06/11/2018 21:16 </td></tr></tbody ></table></item> UNK <item><content [facility] styleCode="Bold"> Medical [facility] Culture Report </content>
<t able><tbody><tr>< td>Specimen Number:</td><td>[id number]</td></tr ><tr><td>Sample Collection Date/Time: </td><td> 9 9:12 PM</td></tr><tr>< td>Specimen Source:</td><td>U RINE</td></tr><tr ><td>Urine Culture:</td><td> Collection Plate Date: 06/11/2018 21:16 </td></tr><tr><td >Culture Status:</td><td>P reliminary </td></tr><tr><td >Culture Report:</td><td>C ulture in progress </td></tr></tbody ></table></item> ID Date Data Source HematologyRou 06/11/2018 09:05:00 PM EDT [facility] Name Value Range Interpretation Description Data Sup porting Code Source(s) Document(s ) Erythrocytes 4.0-5.1 Below low normal <content [facility] [#/volume] in styleCode="Bold Gomez Blood by ">Red Blood Medical Automated count Cell Count Center </content>3.72 MCUMM L<content styleCode="Ital ics"> (4.0-5.1 MCUMM)</content > Leukocytes 4.4-11.0 <content [facility] [#/volume] in styleCode="Bold Gomez Blood by ">White Blood Medical Automated count Cell Count Center </content>5.26 KCUMM<content styleCode="Ital ics"> (4.4-11.0 KCUMM)</content > Hematocrit 36.0-46. Below low normal <content [facility] [Volume 0 styleCode="Bold Gomez Fraction] of ">Hematocrit Medical Blood by </content>32.0 Center Automated count % L<content styleCode="Ital ics"> (36.0-46.0 %)</content> Erythrocyte 11.5-14. <content [facility] distribution 5 styleCode="Bold Gomez width [Ratio] by ">Red Cell Medical Automated count Distribution Center Width </content>12.5 %<content styleCode="Ital ics"> (11.5-14.5 %)</content> Erythrocyte mean 80.0-100 <content [facility] corpuscular .0 styleCode="Bold Gomez volume [Entitic ">Mean Medical volume] by Corpuscular Center Automated count Volume </content>86.0 FL<content styleCode="Ital ics"> (80.0-100.0 FL)</content> Erythrocyte mean 32.0-37. <content [facility] corpuscular 0 styleCode="Bold Gomez hemoglobin ">Mean Corpus. Medical concentration Hgb Center [Mass/volume] by Concentration Automated count (MCHC) </content>33.4 G/DL<content styleCode="Ital ics"> (32.0-37.0 G/DL)</content> Hemoglobin 12.3-16. Below low normal <content Saint [Mass/volume] in 0 styleCode="Bold Gomez Blood ">Hemoglobin Medical </content>10.7 Center G/DL L<content styleCode="Ital ics"> (12.3-16.0 G/DL)</content> Erythrocyte mean 26.0-34. <content [facility] corpuscular 0 styleCode="Bold Gomez hemoglobin ">Mean Medical [Entitic mass] Corposcular Center by Automated Hemoglobin count </content>28.8 PG<content styleCode="Ital ics"> (26.0-34.0 PG)</content> Platelets 130-400 <content Saint [#/volume] in styleCode="Bold Gomez Blood by ">Platelet Medical Automated count Count Center </content>172 KCUMM<content styleCode="Ital ics"> (130-400 KCUMM)</content > UNK 0.0 <content Saint styleCode="Bold Gomez ">Nucleated Red Medical Blood Cell Center Count </content>0.00 KCUMM<content styleCode="Ital ics"> (0.0 KCUMM)</content > Platelet mean 8.0-11.0 Above high <content Saint volume [Entitic normal styleCode="Bold Gomez volume] in Blood ">Mean Platelet Medical by Automated Volume Center count </content>11.9 FL H<content styleCode="Ital ics"> (8.0-11.0 FL)</content> UNK 0 <content [facility] styleCode="Bold Gomez ">Nucleated Red Medical Blood Cell Center </content>0.0 /100<content styleCode="Ital ics"> (0 /100)</content> ID Date Data Source GFR(Creatinine) 06/11/2018 09:05:00 PM EDT [facility] Name Value Range Interpretation Code Description Data Karin rce(s) Supporting Document(s ) UNK > 60 <content [facility] styleCode="Bold"> Medical Cent er EGFR </content>164 GFR<content styleCode="Italic s"> (> 60 GFR)</content> ID Date Data Source CardiacMarkers 06/11/2018 09:05:00 PM EDT [facility] Name Value Range Interpretation Description Data Sup porting Code Source(s) Document(s ) Troponin < 0.034 <content Saint I.cardiac styleCode="Bold Gomez [Mass/volume ">Troponin I Medical ] in Serum </content>< Center or Plasma 0.012 NG/ML<content styleCode="Ital ics"> (< 0.034 NG/ML)</content > ID Date Data Source BMP 06/11/2018 09:05:00 PM EDT [facility] Name Value Range Interpretation Description Data Sup porting Code Source(s) Document(s ) Sodium 137-145 <content Saint [Moles/volume] styleCode="Rafy Gomez in Serum or d">Sodium Medical Plasma </content>139 Center MEQ/L<content styleCode="Petty lics"> (137-145 MEQ/L)</conten t> Chloride 98-107 <content [facility] [Moles/volume] styleCode="Rafy Gomez in Serum or d">Chloride Medical Plasma </content>107 Center MEQ/L<content styleCode="Petty lics"> (98-107 MEQ/L)</conten t> Carbon 22-30 <content Saint dioxide, total styleCode="Rafy Gomez [Moles/volume] d">Carbon Medical in Serum or Dioxide Center Plasma </content>24 MEQ/L<content styleCode="Petty lics"> (22-30 MEQ/L)</conten t> Glucose 74-106 <content [facility] [Mass/volume] styleCode="Rafy Gomez in Serum or d">Glucose Medical Plasma </content>100 Center MG/DL<content styleCode="Petty lics"> (74-106 MG/DL)</conten t> Potassium 3.5-5.3 <content [facility] [Moles/volume] styleCode="Rafy Gomez in Serum or d">Potassium Medical Plasma </content>3.7 Center MEQ/L<content styleCode="Petty lics"> (3.5-5.3 MEQ/L)</conten t> Creatinine 0.5-1.3 <content [facility] [Mass/volume] styleCode="Rafy Gomez in Serum or d">Creatinine Medical Plasma </content>0.5 Center MG/DL<content styleCode="Petty lics"> (0.5-1.3 MG/DL)</conten t> UNK 7-17 <content [facility] styleCode="Rafy Gomez d">BUN Medical </content>14 Center MG/DL<content styleCode="Petty lics"> (7-17 MG/DL)</conten t> UNK > 60 <content [facility] styleCode="Rafy Gomez d">EGFR Medical </content>164 Center GFR<content styleCode="Petty lics"> (> 60 GFR)</content> Calcium 8.4-10.2 <content [facility] [Mass/volume] styleCode="Rafy Gomez in Serum or d">Calcium Medical Plasma </content>9.3 Center MG/DL<content styleCode="Petty lics"> (8.4-10.2 MG/DL)</conten t> ID Date Data Source DRUG/ALCOHOL METABOLITE PANEL 04/12/2018 10:06:06 AM EST eCW 3 ([facility] ([id number]).3 Care) Name Value Range Interpretation Code Description Data Karin rce(s) Supporting Document(s ) 213.3 CREATININE eCW3 ([facility]) ID Date Data Source DRUG SCREEN 13.1 04/12/2018 10:05:45 AM EST eCW3 ([facility]) Name Value Range Interpretation Description Data Sup porting Code Source(s) Document(s ) Negative OPIATES eCW3 ([facility]) Negative BENZODIAZEPINES eCW3 ([facility]) Negative AMPHETAMINES eCW3 ([facility]) Negative BARBITURATES eCW3 ([facility]) Negative COCAINE eCW3 ([facility]) Negative METHADONE eCW3 ([facility]) Negative OXIDANTS eCW3 ([facility]) Negative PHENCYCLIDINE(PCP) eCW3 ([facility]) Positive THC eCW3 ([facility]) 213.3 CREATININE eCW3 ([facility]) 6.4 pH eCW3 ([facility]) 1.0244 SPECIFIC GRAVITY eCW3 ([facility]) Negative 6-ACETYLMORPHINE(6- eCW3 ([facility]) [facility]) Negative NITRITE eCW3 ([facility]) POSITIVE BUPRENORPHINE eCW3 ([facility]) Negative FENTANYL eCW3 ([facility]) Positive OXYCODONE eCW3 ([facility]) Negative TRAMADOL, QUAL eCW3 ([facility]) ID Date Data Source CONFIRM.BUPRENO.2 04/12/2018 10:04:56 AM EST eCW3 ([facility]) Name Value Range Interpretation Code Description Data Karin rce(s) Supporting Document(s ) 200 Buprenorphine(LC/ eCW3 ([place] MS/MS) [facility]) 975 Norbuprenorphine( eCW3 ([place] LC/MS/MS) [facility]) ID Date Data Source Test, Urine, In 04/06/2018 04:59:56 AM EST eCW3 ([facility]) Name Value Range Interpretation Code Description Data Karin rce(s) Supporting Document(s ) negative Test, eCW3 ([facility]) Procedure Social History Code Duration Value Status Description Data Source(s ) Smoking 01/19/2019 Current Smoker completed Current Smoker eCW3 ( [place] 12:00:00 AM [facility]) Smoking 01/19/2019 Current Smoker completed Current Smoker eCW3 ( [place] 12:00:00 AM [facility]) Smoking 01/19/2019 Current Smoker completed Current Smoker eCW3 ( [place] 12:00:00 AM [facility]) Smoking 01/19/2019 Current Smoker completed Current Smoker eCW3 ( [place] 12:00:00 AM [facility]) Smoking 01/19/2019 Current Smoker completed Current Smoker eCW3 ( [place] 12:00:00 AM [facility]) Smoking 01/19/2019 Current Smoker completed Current Smoker eCW3 ( [place] 12:00:00 AM [facility]) Smoking 11/24/2018 Current Smoker completed Current Smoker eCW3 ( [place] 12:00:00 AM [facility]) Smoking 07/21/2018 Denies Ever completed Denies Ever Smoked [facility] Gomez 01:33:00 PM EDT Smoked Medical C enter Smoking 07/21/2018 Denies Ever completed Denies Ever Smoked Saint Gomez 01:30:00 PM EDT Smoked Medical C enter Smoking 07/21/2018 Denies Ever completed Denies Ever Smoked [facility] Gomez 01:20:00 PM EDT Smoked Medical C enter Smoking 07/19/2018 Denies Ever completed Denies Ever Smoked Saint Gomez 01:07:00 PM EDT Smoked Medical C enter Smoking 07/19/2018 Denies Ever completed Denies Ever Smoked [facility] Gomez 01:00:00 PM EDT Smoked Medical C enter Smoking 07/19/2018 Denies Ever completed Denies Ever Smoked [facility] Gomez 12:53:00 PM EDT Smoked Medical C enter Smoking 06/11/2018 Denies Ever completed Denies Ever Smoked [facility] Gomez 11:58:00 PM EDT Smoked Medical C enter Smoking 06/11/2018 Denies Ever completed Denies Ever Smoked [facility] Gomez 09:51:00 PM EDT Smoked Medical C enter Smoking 06/11/2018 Denies Ever completed Denies Ever Smoked [facility] Gomez 08:46:00 PM EDT Smoked Medical C enter Smoking 06/09/2018 Denies Ever completed Denies Ever Smoked [facility] Gomez 05:39:00 PM EDT Smoked Medical C enter Smoking 06/09/2018 Denies Ever completed Denies Ever Smoked [facility] Gomez 05:27:00 PM EDT Smoked Medical C enter Smoking 05/13/2018 Current Smoker completed Current Smoker eCW3 ( [place] 12:00:00 AM EDT [facility]) Smoking 04/20/2018 Current Smoker completed Current Smoker eCW3 ( [place] 12:00:00 AM EST [facility]) Smoking 02/04/2018 Denies Ever completed Denies Ever Smoked [facility] Gomez 11:52:00 PM EST Smoked Medical C enter Smoking 02/04/2018 Denies Ever completed Denies Ever Smoked [facility] Gomez 11:44:00 PM EST Smoked Medical C enter Current Smoker completed Current Smoker eCW3 ( [facility]) Current Smoker completed Current Smoker eCW3 ( [facility]) Current Smoker completed Current Smoker eCW3 ( [facility]) Current Smoker completed Current Smoker eCW3 ( [facility]) Current Smoker completed Current Smoker eCW3 ( [facility]) Current Smoker completed Current Smoker eCW3 ( [facility]) Current Smoker completed Current Smoker eCW3 ( [facility]) Current Smoker completed Current Smoker eCW3 ( [facility]) Current Smoker completed Current Smoker eCW3 ( [facility]) Vital Signs ID Date Data Source UNK Name Value Range Interpretation Code Description Data Source(s) Diastolic blood 68 mm[Hg] 68 mm[Hg] eCW3 ([facility]) Systolic blood 105 mm[Hg] 105 mm[Hg] [facility] ([facility]) Body temperature 98.0 [degF] 98.0 [degF] eCW3 ( [facility]) Body mass index 18.58 kg/m2 18.58 kg/m2 eCW3 ([facility] (BMI) [Ratio] [facility]) Body weight 110 [lb_av] 110 [lb_av] eCW3 ([facility]) Body height 64.51 [in_i] 64.51 [in_i] eCW3 ([facility]) Diastolic blood 63 mm[Hg] 63 mm[Hg] eCW3 ([facility]) Systolic blood 90 mm[Hg] 90 mm[Hg] eCW3 ([facility]) Body temperature 98.3 [degF] 98.3 [degF] eCW3 ( [facility]) Body mass index 19.26 kg/m2 19.26 kg/m2 eCW3 ([facility] (BMI) [Ratio] [facility]) Body weight 114 [lb_av] 114 [lb_av] eCW3 ([facility]) Body height 64.51 [in_i] 64.51 [in_i] eCW3 ([facility]) Diastolic blood 71 mm[Hg] 71 mm[Hg] eCW3 ([facility]) Systolic blood 105 mm[Hg] 105 mm[Hg] eCW3 ([facility]) Body temperature 98.4 [degF] 98.4 [degF] eCW3 ( [facility]) Body mass index 19.43 kg/m2 19.43 kg/m2 eCW3 ([facility] (BMI) [Ratio] [facility]) Body weight 115 [lb_av] 115 [lb_av] eCW3 ([facility]) Body height 64.51 [in_i] 64.51 [in_i] eCW3 ([facility]) Diastolic blood 61 mm[Hg] 61 mm[Hg] eCW3 ([facility]) Systolic blood 98 mm[Hg] 98 mm[Hg] eCW3 ([facility]) Body temperature 98.9 [degF] 98.9 [degF] eCW3 ( [facility]) Body mass index 19.60 kg/m2 19.60 kg/m2 eCW3 ([facility] (BMI) [Ratio] [facility]) Body weight 116 [lb_av] 116 [lb_av] eCW3 ([facility]) Body height 64.51 [in_i] 64.51 [in_i] eCW3 ([facility]) Oxygen saturation 100 % 100 % [facility] by Pulse oximetry Heart rate 89 /min 89 /min [facility] Body weight 49.545648 kg 49.257619 kg [facility] Measured [facility] Body temperature 37.065688 37.910398 Lidia [facility] Respiratory rate 16 /min 16 /min [facility] Oxygen saturation 99 % 99 % [facility] by Pulse oximetry Heart rate 96 /min 96 /min [facility] Body height 162.677154 162.954473 cm [facility] Diastolic blood 68 mm[Hg] 68 mm[Hg] [facility] pressure [facility] Systolic blood 123 mm[Hg] 123 mm[Hg] [facility] Body mass index 18.7 kg/m2 18.7 kg/m2 [facility] (BMI) [Ratio] Medical [facility] ter Oxygen saturation 100 % 100 % [facility] by Pulse oximetry Heart rate 85 /min 85 /min [facility] Body temperature 36.468318 36.357454 Lidia [facility] Respiratory rate 18 /min 18 /min [facility] Oxygen saturation 100 % 100 % [facility] Arterial blood Medical Center by Pulse oximetry Heart rate 96 /min 96 /min [facility] Diastolic blood 65 mm[Hg] 65 mm[Hg] [facility] pressure Medical Center Systolic blood 103 mm[Hg] 103 mm[Hg] [facility] Diastolic blood 80 mm[Hg] 80 mm[Hg] eCW3 ([facility]) Systolic blood 121 mm[Hg] 121 mm[Hg] eCW3 ([facility]) Body temperature 97.4 [degF] 97.4 [degF] eCW3 ( [facility]) Heart rate 16 /min 16 /min eCW3 ([facility]) Body mass index 18.41 kg/m2 18.41 kg/m2 eCW3 ([facility] (BMI) [Ratio] [facility]) Body weight 109 [lb_av] 109 [lb_av] eCW3 ([facility]) Body height 64.51 [in_i] 64.51 [in_i] eCW3 ([facility]) Body temperature 36.479084 36.464637 Lidia [facility] Respiratory rate 18 /min 18 /min [facility] Oxygen saturation 98 % 98 % [facility] blood [facility] by Pulse oximetry Heart rate 87 /min 87 /min [facility] Diastolic blood 74 mm[Hg] 74 mm[Hg] [facility] Systolic blood 116 mm[Hg] 116 mm[Hg] [facility] Body temperature 36.502181 36.842300 Lidia [facility] Respiratory rate 19 /min 19 /min [facility] Oxygen saturation 100 % 100 % [facility] blood [facility] by Pulse oximetry Heart rate 98 /min 98 /min [facility] Diastolic blood 82 mm[Hg] 82 mm[Hg] [facility] Systolic blood 137 mm[Hg] 137 mm[Hg] [facility] Body weight 51.512377 kg 51.478323 kg [facility] Body temperature 36.983173 36.788942 [facility] Respiratory rate 16 /min 16 /min [facility] Oxygen saturation 100 % 100 % [facility] Arterial blood Medical Center by Pulse oximetry Heart rate 85 /min 85 /min [facility] Body height 162.406471 162.536464 cm [facility] Diastolic blood 74 mm[Hg] 74 mm[Hg] [facility] pressure Medical Center Systolic blood 124 mm[Hg] 124 mm[Hg] [facility] pressure Medical Center Body mass index 19.3 kg/m2 19.3 kg/m2 [facility] (BMI) [Ratio] Medical [facility] Diastolic blood 80 mm[Hg] 80 mm[Hg] eCW3 ([facility]) Systolic blood 118 mm[Hg] 118 mm[Hg] eCW3 ([facility]) Body temperature 99.2 [degF] 99.2 [degF] eCW3 ( [facility]) Heart rate 16 /min 16 /min eCW3 ([facility]) Body mass index 19.09 kg/m2 19.09 kg/m2 eCW3 (H davi (BMI) [Ratio] [facility]) Body weight 113 [lb_av] 113 [lb_av] eCW3 ([facility]) Body height 64.51 [in_i] 64.51 [in_i] eCW3 ([facility]) Diastolic blood 79 mm[Hg] 79 mm[Hg] eCW3 ([facility]) Systolic blood 113 mm[Hg] 113 mm[Hg] eCW3 ([facility]) Body temperature 98.7 [degF] 98.7 [degF] eCW3 ( [facility]) Heart rate 16 /min 16 /min eCW3 ([facility]) Body mass index 18.58 kg/m2 18.58 kg/m2 eCW3 ([facility] (BMI) [Ratio] [facility]) Body weight 110 [lb_av] 110 [lb_av] eCW3 ([facility]) Body height 64.51 [in_i] 64.51 [in_i] eCW3 ([facility]) Systolic blood 139 mm[Hg] 139 mm[Hg] [facility] pressure Medical Center Diastolic blood 89 mm[Hg] 89 mm[Hg] [facility] pressure [facility] Heart rate 88 /min 88 /min [facility] Oxygen saturation 99 % 99 % [facility] in Arterial blood [facility] by Pulse oximetry Respiratory rate 18 /min 18 /min [facility] Body temperature 36.259854 36.826761 Lidia [facility] Patient Treatment Plan of Care Planned Activity Planned Date Details Description Data Source (s) Buprenorphine 8 MG / Naloxone eCW3 ([place] 2 MG Oral Strip [[facility]] [facility]) Sulfamethoxazole 800 MG / Sa [facility] Trimethoprim [address] Tablet Ibuprofen 600 MG Oral Tablet [facility]
== END 2019-11-18 02:53 | disposition home or self-care (01) ==
LOC: JER 01:50
DX: M79.89 Other specified soft tissue disorders (principal)
CPT/HCPCS: 73090-TC-RT-FY; 99284-25

== ENCOUNTER 2020-01-08 17:22 | Emergency (ER) | payer OTHER ==
[2020-01-08 17:28] VITALS: BP 123/89; PULSE 99; TEMP 98.4; BMI 21.2
== END 2020-01-08 20:20 | disposition home or self-care (01) ==
LOC: JER 17:22
DX: S41.101A Unspecified open wound of right upper arm, initial encounter (principal)
CPT/HCPCS: 76882-TC-RT-FY; 93971; 99285-25

== ENCOUNTER 2020-01-29 12:53 | Inpatient (IN) | payer OTHER ==
[2020-01-29 13:57] VITALS: BMI 21.2
[2020-01-29] MEDS ORDERED: MAGNESIUM CITRATE 300 ML BOTTLE PO PRN (16:34)
[2020-01-29] MEDS ORDERED: ONDANSETRON *ODT* 4 MG TABLET SL PRN (16:34)
[2020-01-29] MEDS ORDERED: MAG HYDROX/AL HYDROX/SIMETH 30 ML UNIT-DOSE CUP PO PRN (16:34)
[2020-01-29] MEDS ORDERED: MAGNESIUM HYDROX 2400MG/30ML ORAL SUSPENSION 30 ML CUP PO PRN (16:34)
[2020-01-29] MEDS ORDERED: hydrOXYzine PAMOATE 25 MG CAPSULE (FP) PO PRN (16:34)
[2020-01-29] MEDS ORDERED: METHOCARBAMOL 500 MG TABLET PO PRN (16:34)
[2020-01-29] MEDS ORDERED: IBUPROFEN 400 MG TABLET (FP) PO PRN (16:34)
[2020-01-29] MEDS ORDERED: ACETAMINOPHEN 325 MG TABLET (FP) PO PRN (16:34)
[2020-01-29] MEDS ORDERED: MELATONIN 5 MG TABLETS PO PRN (16:34)
[2020-01-29] MEDS ORDERED: NICOTINE POLACRILEX 2 MG GUM BUC PRN (16:34)
[2020-01-29] MEDS ORDERED: MENTHOL/PHENOL 1 EACH UD MM PRN (16:34)
[2020-01-29] MEDS ORDERED: BISMUTH SUBSALICYLATE 524 MG/30 ML UD PO PRN (16:34)
[2020-01-29] MEDS ORDERED: METHADONE HCL 10 MG TABLET (FOR DETOX USE ONLY) PO ONE (17:00)
[2020-01-29] MEDS: ACETAMINOPHEN 325 MG TABLET (FP) PO PRN ×2 (17:39→18:13)
[2020-01-29] MEDS: cloNIDine HCL 0.1 MG TABLET PO PRN ×2 (18:02→22:20)
[2020-01-29] MEDS ORDERED: THIAMINE HCL 100 MG TABLET (FP) PO SCH (22:00)
[2020-01-29] MEDS ORDERED: SULFAMETHOXAZOLE/TRIMETHOPRIM 800MG/160MG D.S. TABLET PO SCH (22:00)
[2020-01-29 22:24] VITALS: BP 113/66; PULSE 94; TEMP 98.4
[2020-01-30] MEDS ORDERED: METHADONE HCL 5 MG TABLET (FOR DETOX USE ONLY) PO ONE (10:00)
[2020-01-30] MEDS ORDERED: PRENATAL VITAMINS W/ FOLIC ACID TABLET (FP) PO SCH (10:00)
[2020-01-30] MEDS ORDERED: FLU VACCINE (FLULAVAL) PF 60 MCG/0.5 ML SYRINGE 2020-2021 IM ONE (12:00)
[2020-01-31] MEDS ORDERED: METHADONE HCL 10 MG TABLET (FOR DETOX USE ONLY) PO ONE (10:00)
[2020-02-01] MEDS ORDERED: METHADONE HCL 5 MG TABLET (FOR DETOX USE ONLY) PO ONE (10:00)
== END 2020-01-29 23:35 | disposition left against medical advice (07) | DRG 770 ==
LOC: YASAS 12:53 → Y6N 16:49
PROVIDERS: ADMIT Allergy & Immunology; ATTEND Allergy & Immunology
PROC: HZ2ZZZZ Detoxification Services for Substance Abuse Treatment (ICD-10-PCS; principal; 2020-01-29)
DX: F11.23 Opioid dependence with withdrawal (principal); F12.20 Cannabis dependence, uncomplicated; F17.210 Nicotine dependence, cigarettes, uncomplicated; R00.0 Tachycardia, unspecified; Z91.19 Patient's noncompliance with other medical treatment and regimen
CPT/HCPCS: 81025; C9803; J0735; U0003

== ENCOUNTER 2020-04-12 15:14 | Inpatient (IN) | payer OTHER ==
[2020-04-12 16:48] VITALS: BMI 23.1
[2020-04-12] MEDS ORDERED: IBUPROFEN 400 MG TABLET (FP) PO PRN (19:19)
[2020-04-12] MEDS ORDERED: MAG HYDROX/AL HYDROX/SIMETH 30 ML UNIT-DOSE CUP PO PRN (19:19)
[2020-04-12] MEDS ORDERED: NICOTINE POLACRILEX 2 MG GUM BUC PRN (19:19)
[2020-04-12] MEDS ORDERED: METHOCARBAMOL 500 MG TABLET PO PRN (19:19)
[2020-04-12] MEDS ORDERED: P-EPHED 60MG/TRIPROLIDI 2.5MG TABLET PO PRN (19:19)
[2020-04-12] MEDS ORDERED: hydrOXYzine PAMOATE 25 MG CAPSULE (FP) PO PRN (19:19)
[2020-04-12] MEDS ORDERED: MAGNESIUM CITRATE 300 ML BOTTLE PO PRN (19:19)
[2020-04-12] MEDS ORDERED: ONDANSETRON *ODT* 4 MG TABLET SL PRN (19:19)
[2020-04-12] MEDS ORDERED: BISMUTH SUBSALICYLATE 524 MG/30 ML UD PO PRN (19:19)
[2020-04-12] MEDS ORDERED: MENTHOL/PHENOL 1 EACH UD MM PRN (19:19)
[2020-04-12] MEDS ORDERED: MAGNESIUM HYDROX 2400MG/30ML ORAL SUSPENSION 30 ML CUP PO PRN (19:19)
[2020-04-12] MEDS ORDERED: ACETAMINOPHEN 325 MG TABLET (FP) PO PRN (19:19)
[2020-04-12] MEDS ORDERED: guaiFENesin 200 MG/10 ML 10 ML UNIT-DOSE CUPS PO PRN (19:19)
[2020-04-12] MEDS ORDERED: CEPHALEXIN MONOHYDRATE 500 MG CAPSULE (UD) PO SCH (19:30)
[2020-04-12] MEDS ORDERED: PRENATAL VITAMINS W/ FOLIC ACID TABLET (FP) PO SCH (19:30)
[2020-04-12] MEDS ORDERED: METHADONE HCL 10 MG TABLET (FOR DETOX USE ONLY) PO ONE (19:54)
[2020-04-12] MEDS ORDERED: cloNIDine HCL 0.1 MG TABLET PO PRN (19:54)
[2020-04-12] MEDS ORDERED: METHADONE 20 MG, METHADONE 5 MG PO ONE ×2 (21:30→21:45)
[2020-04-12] MEDS ORDERED: METHADONE HCL 10 MG TABLET (FOR DETOX USE ONLY) ONE (21:36)
[2020-04-12] MEDS ORDERED: METHADONE HCL 5 MG TABLET (FOR DETOX USE ONLY) ONE (21:37)
[2020-04-12] MEDS ORDERED: MELATONIN 5 MG TABLETS PO SCH (22:00)
[2020-04-12] MEDS ORDERED: BACITRACIN 0.9 GM PACKET TP SCH (22:00)
[2020-04-12] MEDS ORDERED: THIAMINE HCL 100 MG TABLET (FP) PO SCH (22:00)
[2020-04-12] MEDS ORDERED: QUEtiapine FUMARATE 100 MG TABLET (FP) PO ONE (22:00)
[2020-04-12 23:00] VITALS: BP 129/86; PULSE 112; TEMP 98
[2020-04-13] MEDS ORDERED: METHADONE HCL 10 MG TABLET (FOR DETOX USE ONLY) PO ONE (10:00)
[2020-04-14] MEDS ORDERED: METHADONE HCL 10 MG TABLET (FOR DETOX USE ONLY) PO ONE (10:00)
[2020-04-14] MEDS ORDERED: METHADONE 10 MG, METHADONE 5 MG PO ONE (10:00)
[2020-04-15] MEDS ORDERED: METHADONE HCL 10 MG TABLET (FOR DETOX USE ONLY) PO ONE (10:00)
[2020-04-16] MEDS ORDERED: METHADONE HCL 10 MG TABLET (FOR DETOX USE ONLY) PO ONE (10:00)
== END 2020-04-12 23:05 | disposition left against medical advice (07) | DRG 770 ==
LOC: YASAS 15:14 → Y3N 19:36
PROVIDERS: ADMIT Allergy & Immunology; ATTEND Allergy & Immunology
PROC: HZ2ZZZZ Detoxification Services for Substance Abuse Treatment (ICD-10-PCS; principal; 2020-04-12)
DX: F11.23 Opioid dependence with withdrawal (principal); F12.20 Cannabis dependence, uncomplicated; F17.210 Nicotine dependence, cigarettes, uncomplicated; F19.24 Other psychoactive substance dependence with psychoactive substance-induced mood disorder; L03.114 Cellulitis of left upper limb; R76.11 Nonspecific reaction to tuberculin skin test without active tuberculosis; R63.4 Abnormal weight loss; Z68.20 Body mass index [BMI] 20.0-20.9, adult
CPT/HCPCS: C9803; U0003

== ENCOUNTER 2021-04-05 15:19 | Inpatient (IN) | payer OTHER ==
[2021-04-05 15:54] VITALS: BMI 19.7
[2021-04-05] MEDS ORDERED: CLINDAMYCIN 600MG PREMIX IVPB 600 MG/50 ML BAG IVPB ONE ×2 (18:05→20:06)
[2021-04-05 20:27] LABS: BASO % 0.7 % (0-2.0); EOS % 0.4 % (0-4.5); HEMATOCRIT 21.6 % (32.4-45.2); LYMPH % 16.3 % (8-40); MCHC 31.7 g/dl (32.0-36.0); MEAN CELL VOLUME 69.5 fl (80-96); MEAN PLT VOLUME 8.1 fl (7.5-11.1); MONO % 7.4 % (3.8-10.2); NEUT % 75.2 % (42.8-82.8); PLATELET COUNT 406 10^3/uL (134-434); RBC 3.11 M/mm3 (3.60-5.2); RDW 16.1 % (11.6-15.6); WHITE BLOOD COUNT 9.2 K/mm3 (4.0-10.0)
[2021-04-05 20:33] LABS: INR 1.39 (0.83-1.09)
[2021-04-05 20:35] LABS: ACTIVATED PTT 30.1 SECONDS (25.2-36.5)
[2021-04-05 20:36] LABS: HEMOGLOBIN 6.9 GM/dL (10.7-15.3)
[2021-04-05 20:44] LABS: CALCIUM 8.9 mg/dL (8.5-10.1)
[2021-04-05 20:45] LABS: ALBUMIN 2.3 g/dl (3.4-5.0); BLOOD UREA NITROGEN 9.7 mg/dL (7-18)
[2021-04-05 20:48] LABS: CREATININE 0.8 mg/dL (0.55-1.3)
[2021-04-05 20:49] LABS: BILIRUBIN,TOTAL 0.3 mg/dL (0.2-1)
[2021-04-05 20:50] LABS: LACTIC ACID 2.8 mmol/L (0.4-2.0)
[2021-04-05] MEDS ORDERED: VANCOMYCIN 1,000 MG in DEXTROSE 5%-WATER - 250 ML IVPB ONE (20:57)
[2021-04-05] MEDS ORDERED: PIPERACILLIN/TAZOB 3.375 GM 3.375 GM in DEXTROSE 5%-WATER - 50 ML IVPB ONE (20:57)
[2021-04-05] MEDS ORDERED: VANCOMYCIN 1 GRAM (PRE-DOCKED) 1,000 MG/250 ML BAG IVPB ONE ×2 (21:05→21:13)
[2021-04-05] MEDS ORDERED: PIPERACILLIN/TAZOB 3.375 GM 3.375 GM/50 ML BAG IVPB ONE (21:05)
[2021-04-05] MEDS ORDERED: ACETAMINOPHEN 1000 MG/100 ML BAG IVPB ONE (21:37)
[2021-04-05] MEDS ORDERED: KETOROLAC TROMETHAMINE 30 MG/1 ML VIAL IM ONE (21:45)
[2021-04-05] MEDS ORDERED: KETOROLAC TROMETHAMINE 30 MG/1 ML VIAL ONE (21:46)
[2021-04-05 22:24] LABS: ERYTHROCYTE SEDIMENTATION RATE 90 mm/hr (0-20)
[2021-04-05] MEDS ORDERED: LACTATED RINGERS SOLUTION 1000 ML INFUS.BAG IV ONE (22:53)
[2021-04-05 23:04] LABS: ANISOCYTOSIS 2+; MACROCYTOSIS 0; OVALOCYTE 1+; PLATELET ESTIMATE NORMAL; TEAR DROP CELLS 1+
[2021-04-05 23:15] LABS: BASO % 0.7 % (0-2.0); EOS % 0.5 % (0-4.5); LYMPH % 25.7 % (8-40); MCH 22.2 pg (25.7-33.7); MEAN CELL VOLUME 69.4 fl (80-96); MEAN PLT VOLUME 8.2 fl (7.5-11.1); MONO % 10.6 % (3.8-10.2); NEUT % 62.5 % (42.8-82.8); PLATELET COUNT 323 10^3/uL (134-434); RBC 2.73 M/mm3 (3.60-5.2); RDW 15.9 % (11.6-15.6); WHITE BLOOD COUNT 5.6 K/mm3 (4.0-10.0)
[2021-04-05 23:24] LABS: HEMOGLOBIN 6.1 GM/dL (10.7-15.3)
[2021-04-06 01:42] LABS: COCAINE, UR POSITIVE (NEGATIVE); METHADONE, UR NEGATIVE (NEGATIVE); OPIATES, URI POSITIVE (NEGATIVE); PHENCYCLIDINE,URINE NEGATIVE (NEGATIVE); URINE AMPHETAMINES NEGATIVE (NEGATIVE); URINE BARBITURATES NEGATIVE (NEGATIVE); URINE BENZODIAZEPINES NEGATIVE (NEGATIVE)
[2021-04-06] MEDS ORDERED: ACETAMINOPHEN 325 MG TABLET (FP) PO PRN (04:28)
[2021-04-06] MEDS ORDERED: MELATONIN 5 MG TABLETS PO PRN (04:48)
[2021-04-06] MEDS ORDERED: ACETAMINOPHEN 325 MG TABLET (FP) ONE (05:16)
[2021-04-06] MEDS ORDERED: PIPERACILLIN/TAZOB 3.375 GM 3.375 GM/50 ML BAG IVPB ONE (05:16)
[2021-04-06] MEDS: PIPERACILLIN/TAZOB 3.375 GM 3.375 GM in DEXTROSE 5%-WATER - 50 ML IVPB SCH ×3 (05:30→17:54)
[2021-04-06] MEDS: SODIUM CHLORIDE 1,000 ML IV SCH ×2 (05:30→22:39)
[2021-04-06] MEDS: CLINDAMYCIN 900 MG PREMIX IVPB 900 MG/50 ML BAG IVPB SCH ×3 (06:25→18:48)
[2021-04-06] MEDS ORDERED: POLYETHYLENE GLYCOL (HEALTHYLAX) 3350 17 GM PACKET PO PRN (10:00)
[2021-04-06] MEDS ORDERED: DAPTOMYCIN 250 MG in SODIUM CHLORIDE 50 ML IVPB SCH (10:00)
[2021-04-06] MEDS ORDERED: MUPIROCIN 2% TOPICAL OINTMENT FOR DECOLONIZATION NS SCH (10:00)
[2021-04-06] MEDS: ACETAMINOPHEN 1000 MG/100 ML BAG IVPB PRN ×2 (10:18→22:29)
[2021-04-06] MEDS: FAMOTIDINE 20 MG/50 ML IVPB 20 MG/50 ML MG IVPB SCH ×2 (11:52→21:33)
[2021-04-06] MEDS: DAPTOMYCIN 400 MG in SODIUM CHLORIDE 50 ML IVPB SCH (13:38)
[2021-04-06] MEDS ORDERED: PIPERACILLIN/TAZOBACTAM 3.375 GM VIAL IVPB ONE (17:12)
[2021-04-06] MEDS ORDERED: DEXTROSE 5%-WATER - 50 ML IVPB ONE (17:12)
[2021-04-06] MEDS: KETOROLAC TROMETHAMINE 15 MG/ML VIAL IVPUSH PRN (18:00)
[2021-04-06] MEDS ORDERED: cloNIDine HCL 0.1 MG TABLET PO PRN (19:55)
[2021-04-06 20:25] LABS: BASO % 0.7 % (0-2.0); EOS % 2.6 % (0-4.5); HEMATOCRIT 27.6 % (32.4-45.2); LYMPH % 18.8 % (8-40); MCH 23.3 pg (25.7-33.7); MCHC 32.5 g/dl (32.0-36.0); MEAN CELL VOLUME 71.8 fl (80-96); MONO % 6.1 % (3.8-10.2); NEUT % 71.8 % (42.8-82.8); PLATELET COUNT 408 10^3/uL (134-434); RBC 3.85 M/mm3 (3.60-5.2); RDW 18.6 % (11.6-15.6); WHITE BLOOD COUNT 9.4 K/mm3 (4.0-10.0)
[2021-04-06 20:56] LABS: CALCIUM 8.6 mg/dL (8.5-10.1); CREATININE 0.9 mg/dL (0.55-1.3)
[2021-04-06] MEDS ORDERED: methaDONE HCL 10 MG TABLET PO ONE (21:30)
[2021-04-06] MEDS ORDERED: MELATONIN 5 MG TABLETS PO ONE (22:00)
[2021-04-06] MEDS ORDERED: CHLORHEXIDINE GLUCONATE 4% CLEANSER FOR DECOLONIZATION TP SCH (22:00)
[2021-04-07] MEDS: CLINDAMYCIN 900 MG PREMIX IVPB 900 MG/50 ML BAG IVPB SCH ×3 (01:18→21:28)
[2021-04-07] MEDS ORDERED: PIPERACILLIN/TAZOBACTAM 3.375 GM VIAL IVPB ONE ×3 (01:42→17:35)
[2021-04-07] MEDS ORDERED: DEXTROSE 5%-WATER - 50 ML IVPB ONE ×3 (01:42→17:35)
[2021-04-07] MEDS: PIPERACILLIN/TAZOB 3.375 GM 3.375 GM in DEXTROSE 5%-WATER - 50 ML IVPB SCH ×3 (01:45→17:49)
[2021-04-07] MEDS ORDERED: PIPERACILLIN/TAZOB 3.375 GM 3.375 GM in DEXTROSE 5%-WATER - 50 ML IVPB SCH (02:00)
[2021-04-07] MEDS: KETOROLAC TROMETHAMINE 15 MG/ML VIAL IVPUSH PRN (04:30)
[2021-04-07] MEDS: SODIUM CHLORIDE 1,000 ML IV SCH ×2 (04:39→14:13)
[2021-04-07 08:41] LABS: BASO % 0.6 % (0-2.0); EOS % 0.3 % (0-4.5); HEMATOCRIT 32.8 % (32.4-45.2); HEMOGLOBIN 10.4 GM/dL (10.7-15.3); LYMPH % 9.6 % (8-40); MCH 23.1 pg (25.7-33.7); MCHC 31.8 g/dl (32.0-36.0); MEAN CELL VOLUME 72.7 fl (80-96); MEAN PLT VOLUME 9.2 fl (7.5-11.1); MONO % 4.5 % (3.8-10.2); PLATELET COUNT 448 10^3/uL (134-434); RBC 4.51 M/mm3 (3.60-5.2); RDW 18.6 % (11.6-15.6); WHITE BLOOD COUNT 14.5 K/mm3 (4.0-10.0)
[2021-04-07 09:04] LABS: ALBUMIN 2.4 g/dl (3.4-5.0); BLOOD UREA NITROGEN 8.4 mg/dL (7-18); CALCIUM 9.3 mg/dL (8.5-10.1); MAGNESIUM 2.2 mg/dL (1.8-2.4)
[2021-04-07 09:07] LABS: PHOSPHOROUS 3.4 mg/dL (2.5-4.9)
[2021-04-07 09:08] LABS: CREATININE 0.7 mg/dL (0.55-1.3)
[2021-04-07 09:09] LABS: BILIRUBIN,TOTAL 0.4 mg/dL (0.2-1)
[2021-04-07] MEDS: DAPTOMYCIN 400 MG in SODIUM CHLORIDE 50 ML IVPB SCH (09:12)
[2021-04-07] MEDS: FAMOTIDINE 20 MG/50 ML IVPB 20 MG/50 ML MG IVPB SCH ×2 (09:13→21:28)
[2021-04-07] MEDS ORDERED: DAPTOMYCIN 250 MG in SODIUM CHLORIDE 50 ML IVPB SCH (10:00)
[2021-04-07] MEDS ORDERED: PROPOFOL 20 ML ONE ×2 (10:36)
[2021-04-07] MEDS ORDERED: KETAMINE HCL 200 MG/20 ML VIAL ONE (10:36)
[2021-04-07] MEDS ORDERED: MIDAZOLAM HCL 2 MG/2 ML SINGLE DOSE VIAL ONE (10:38)
[2021-04-07] MEDS ORDERED: HYDROmorphone HCl 2 MG/ML VIAL ONE ×6 (10:46→12:50)
[2021-04-07] MEDS ORDERED: DEXAMETHASONE SOD PHOSPHATE 4 MG/1 ML VIAL ONE (11:16)
[2021-04-07] MEDS ORDERED: ONDANSETRON 4 MG/2 ML VIAL IVPUSH PRN (11:51)
[2021-04-07] MEDS ORDERED: MIDAZOLAM HCL 2 MG/2 ML SINGLE DOSE VIAL IVPUSH ONE (11:58)
[2021-04-07] MEDS ORDERED: LACTATED RINGERS SOLUTION 1,000 ML IV SCH (12:00)
[2021-04-07] MEDS ORDERED: ACETAMINOPHEN 1000 MG/100 ML BAG IVPB ONE (12:07)
[2021-04-07] MEDS ORDERED: POLYETHYLENE GLYCOL (HEALTHYLAX) 3350 17 GM PACKET PO PRN (12:16)
[2021-04-07] MEDS: HYDROmorphone HCL CARPU-JECT 2 MG/1 ML DISP.SYRIN IVPUSH PRN ×2 (12:21→12:36)
[2021-04-07] MEDS ORDERED: HYDROmorphone HCl 2 MG/ML VIAL IVPUSH PRN (13:20)
[2021-04-07] MEDS ORDERED: methaDONE HCL 10 MG TABLET (FOR DETOX USE ONLY) PO ONE (15:00)
[2021-04-07] MEDS: KETAMINE HCL 200 MG/20 ML VIAL IVPUSH PRN ×2 (15:07→22:42)
[2021-04-07] MEDS: cloNIDine HCL 0.1 MG TABLET PO PRN ×2 (15:08→22:42)
[2021-04-07 17:12] LABS: HIV INTERPRETATION NEGATIVE (NEGATIVE)
[2021-04-07] MEDS ORDERED: methaDONE HCL 10 MG TABLET PO ONE (17:45)
[2021-04-07] MEDS: ACETAMINOPHEN 325 MG TABLET (FP) PO PRN (23:18)
[2021-04-08] MEDS ORDERED: PIPERACILLIN/TAZOBACTAM 3.375 GM VIAL IVPB ONE ×3 (02:01→17:46)
[2021-04-08] MEDS ORDERED: DEXTROSE 5%-WATER - 50 ML IVPB ONE ×3 (02:01→17:47)
[2021-04-08] MEDS: PIPERACILLIN/TAZOB 3.375 GM 3.375 GM in DEXTROSE 5%-WATER - 50 ML IVPB SCH ×3 (02:29→17:49)
[2021-04-08] MEDS: CLINDAMYCIN 900 MG PREMIX IVPB 900 MG/50 ML BAG IVPB SCH ×3 (02:29→17:23)
[2021-04-08] MEDS: SODIUM CHLORIDE 1,000 ML IV SCH ×3 (02:38→20:09)
[2021-04-08] MEDS: KETAMINE HCL 200 MG/20 ML VIAL IVPUSH PRN ×5 (06:29→22:20)
[2021-04-08] MEDS: cloNIDine HCL 0.1 MG TABLET PO PRN ×2 (06:29→21:59)
[2021-04-08] MEDS ORDERED: methaDONE HCL 10 MG TABLET PO ONE ×3 (07:30→16:44)
[2021-04-08 07:52] LABS: BASO % 0.3 % (0-2.0); EOS % 0.4 % (0-4.5); HEMOGLOBIN 8.5 GM/dL (10.7-15.3); LYMPH % 24.3 % (8-40); MCH 24.3 pg (25.7-33.7); MCHC 33.8 g/dl (32.0-36.0); MEAN CELL VOLUME 71.8 fl (80-96); MEAN PLT VOLUME 8.6 fl (7.5-11.1); MONO % 6.8 % (3.8-10.2); NEUT % 68.2 % (42.8-82.8); PLATELET COUNT 486 10^3/uL (134-434); RBC 3.48 M/mm3 (3.60-5.2); RDW 18.7 % (11.6-15.6); WHITE BLOOD COUNT 10.9 K/mm3 (4.0-10.0)
[2021-04-08 08:05] LABS: ALBUMIN 2.3 g/dl (3.4-5.0); BLOOD UREA NITROGEN 6.6 mg/dL (7-18); CALCIUM 8.6 mg/dL (8.5-10.1); MAGNESIUM 1.8 mg/dL (1.8-2.4)
[2021-04-08 08:08] LABS: CREATININE 0.7 mg/dL (0.55-1.3)
[2021-04-08 08:10] LABS: BILIRUBIN,TOTAL 0.5 mg/dL (0.2-1); TOT PROT 6.8 g/dl (6.4-8.2)
[2021-04-08] MEDS: FAMOTIDINE 20 MG/50 ML IVPB 20 MG/50 ML MG IVPB SCH ×2 (11:00→21:18)
[2021-04-08] MEDS: DAPTOMYCIN 400 MG in SODIUM CHLORIDE 50 ML IVPB SCH (11:26)
[2021-04-08] MEDS: GABAPENTIN 300 MG CAPSULE PO SCH ×2 (14:33→21:18)
[2021-04-08] MEDS: ACETAMINOPHEN 325 MG TABLET (FP) PO PRN (21:59)
[2021-04-09] MEDS ORDERED: PIPERACILLIN/TAZOBACTAM 3.375 GM VIAL IVPB ONE ×3 (02:05→17:23)
[2021-04-09] MEDS ORDERED: DEXTROSE 5%-WATER - 50 ML IVPB ONE ×3 (02:05→17:23)
[2021-04-09] MEDS: PIPERACILLIN/TAZOB 3.375 GM 3.375 GM in DEXTROSE 5%-WATER - 50 ML IVPB SCH ×3 (02:18→17:27)
[2021-04-09] MEDS: CLINDAMYCIN 900 MG PREMIX IVPB 900 MG/50 ML BAG IVPB SCH ×3 (02:30→18:30)
[2021-04-09] MEDS: KETAMINE HCL 200 MG/20 ML VIAL IVPUSH PRN ×6 (05:40→21:51)
[2021-04-09] MEDS: GABAPENTIN 300 MG CAPSULE PO SCH ×3 (05:40→21:51)
[2021-04-09] MEDS ORDERED: methaDONE HCL 10 MG TABLET PO SCH (06:00)
[2021-04-09 07:36] LABS: HEMOGLOBIN 8.3 GM/dL (10.7-15.3); MCH 23.4 pg (25.7-33.7); MCHC 32.1 g/dl (32.0-36.0); MEAN CELL VOLUME 72.8 fl (80-96); MEAN PLT VOLUME 8.6 fl (7.5-11.1); PLATELET COUNT 544 10^3/uL (134-434); RBC 3.57 M/mm3 (3.60-5.2); RDW 19.2 % (11.6-15.6)
[2021-04-09] MEDS ORDERED: methaDONE HCL 10 MG TABLET ONE (07:44)
[2021-04-09 07:52] LABS: BLOOD UREA NITROGEN 7.1 mg/dL (7-18)
[2021-04-09 07:53] LABS: CALCIUM 9.3 mg/dL (8.5-10.1)
[2021-04-09 07:54] LABS: ALBUMIN 2.5 g/dl (3.4-5.0); MAGNESIUM 2.2 mg/dL (1.8-2.4)
[2021-04-09 07:55] LABS: BILIRUBIN,TOTAL 0.4 mg/dL (0.2-1); TOT PROT 7.5 g/dl (6.4-8.2)
[2021-04-09 07:56] LABS: CREATININE 0.7 mg/dL (0.55-1.3)
[2021-04-09 07:57] LABS: PHOSPHOROUS 3.4 mg/dL (2.5-4.9)
[2021-04-09] MEDS: cloNIDine HCL 0.1 MG TABLET PO PRN ×2 (08:09→17:29)
[2021-04-09 09:16] LABS: ANISOCYTOSIS 0; HELMET CELLS 0; HOWELL-JOLLY BODIES 0; MACROCYTOSIS 0; OVALOCYTE 0; ROULEAU 0; SICKELED CELLS 0; TARGET CELLS 0; TEAR DROP CELLS 0; TOXIC GRANULATION 0
[2021-04-09] MEDS: DAPTOMYCIN 400 MG in SODIUM CHLORIDE 50 ML IVPB SCH (10:19)
[2021-04-09] MEDS: MULTIVITAMINS (DAILY MVI) TABLET (FP) PO SCH (10:19)
[2021-04-09] MEDS: FAMOTIDINE 20 MG/50 ML IVPB 20 MG/50 ML MG IVPB SCH ×2 (10:19→21:51)
[2021-04-09] MEDS: SODIUM CHLORIDE 1,000 ML IV SCH ×3 (12:00→18:37)
[2021-04-09] MEDS ORDERED: ACETAMINOPHEN 1000 MG/100 ML BAG IVPB ONE (17:17)
[2021-04-10] MEDS: ACETAMINOPHEN 325 MG TABLET (FP) PO PRN ×2 (00:04→11:00)
[2021-04-10] MEDS: cloNIDine HCL 0.1 MG TABLET PO PRN (00:05)
[2021-04-10] MEDS ORDERED: PIPERACILLIN/TAZOBACTAM 3.375 GM VIAL IVPB ONE ×2 (02:27→08:38)
[2021-04-10] MEDS ORDERED: DEXTROSE 5%-WATER - 50 ML IVPB ONE ×2 (02:27→08:39)
[2021-04-10] MEDS: PIPERACILLIN/TAZOB 3.375 GM 3.375 GM in DEXTROSE 5%-WATER - 50 ML IVPB SCH ×2 (02:33→09:01)
[2021-04-10] MEDS: CLINDAMYCIN 900 MG PREMIX IVPB 900 MG/50 ML BAG IVPB SCH ×2 (02:33→09:03)
[2021-04-10] MEDS: KETAMINE HCL 200 MG/20 ML VIAL IVPUSH PRN ×6 (04:09→21:30)
[2021-04-10] MEDS ORDERED: methaDONE HCL 10 MG TABLET PO ONE ×2 (06:00→10:00)
[2021-04-10] MEDS: GABAPENTIN 300 MG CAPSULE PO SCH ×3 (06:15→21:30)
[2021-04-10] MEDS: SODIUM CHLORIDE 1,000 ML IV SCH ×2 (06:17→16:05)
[2021-04-10 07:01] LABS: HEMATOCRIT 24.7 % (32.4-45.2); HEMOGLOBIN 7.6 GM/dL (10.7-15.3); MCH 22.9 pg (25.7-33.7); MCHC 30.8 g/dl (32.0-36.0); MEAN CELL VOLUME 74.2 fl (80-96); MEAN PLT VOLUME 8.6 fl (7.5-11.1); PLATELET COUNT 464 10^3/uL (134-434); RBC 3.33 M/mm3 (3.60-5.2); RDW 20.6 % (11.6-15.6); WHITE BLOOD COUNT 8.2 K/mm3 (4.0-10.0)
[2021-04-10 07:22] LABS: CALCIUM 8.5 mg/dL (8.5-10.1)
[2021-04-10 07:23] LABS: BLOOD UREA NITROGEN 7.1 mg/dL (7-18); MAGNESIUM 2.2 mg/dL (1.8-2.4)
[2021-04-10 07:26] LABS: CREATININE 0.6 mg/dL (0.55-1.3); PHOSPHOROUS 4.2 mg/dL (2.5-4.9)
[2021-04-10] MEDS: MULTIVITAMINS (DAILY MVI) TABLET (FP) PO SCH (09:03)
[2021-04-10] MEDS: FAMOTIDINE 20 MG/50 ML IVPB 20 MG/50 ML MG IVPB SCH ×2 (09:03→21:30)
[2021-04-10 09:17] LABS: ANISOCYTOSIS 2+; MACROCYTOSIS 0
[2021-04-10] MEDS ORDERED: IBUPROFEN 800 MG/8 ML IJ IVPB PRN (13:32)
[2021-04-10] MEDS: IBUPROFEN 800 MG/8 ML IJ IVPB PRN ×2 (13:57→22:50)
[2021-04-10] MEDS: DAPTOMYCIN 400 MG in SODIUM CHLORIDE 50 ML IVPB SCH (14:50)
[2021-04-11] MEDS: KETAMINE HCL 200 MG/20 ML VIAL IVPUSH PRN ×8 (00:41→23:02)
[2021-04-11] MEDS: SODIUM CHLORIDE 1,000 ML IV SCH (03:30)
[2021-04-11] MEDS: GABAPENTIN 300 MG CAPSULE PO SCH ×3 (05:09→21:20)
[2021-04-11] MEDS ORDERED: methaDONE HCL 10 MG TABLET PO ONE (06:00)
[2021-04-11 06:57] LABS: BASO % 0.4 % (0-2.0); EOS % 0.3 % (0-4.5); HEMATOCRIT 25.8 % (32.4-45.2); HEMOGLOBIN 8.3 GM/dL (10.7-15.3); LYMPH % 11.4 % (8-40); MCH 23.7 pg (25.7-33.7); MCHC 32.2 g/dl (32.0-36.0); MEAN CELL VOLUME 73.7 fl (80-96); MEAN PLT VOLUME 8.3 fl (7.5-11.1); MONO % 6.1 % (3.8-10.2); NEUT % 81.8 % (42.8-82.8); PLATELET COUNT 460 10^3/uL (134-434); RBC 3.51 M/mm3 (3.60-5.2); RDW 21.4 % (11.6-15.6); WHITE BLOOD COUNT 13.8 K/mm3 (4.0-10.0)
[2021-04-11 07:12] LABS: BLOOD UREA NITROGEN 10.2 mg/dL (7-18); CALCIUM 8.5 mg/dL (8.5-10.1); MAGNESIUM 2.2 mg/dL (1.8-2.4)
[2021-04-11 07:15] LABS: PHOSPHOROUS 3.6 mg/dL (2.5-4.9)
[2021-04-11 07:16] LABS: CREATININE 0.6 mg/dL (0.55-1.3)
[2021-04-11] MEDS: IBUPROFEN 800 MG/8 ML IJ IVPB PRN ×2 (09:38→21:20)
[2021-04-11] MEDS: FAMOTIDINE 20 MG/50 ML IVPB 20 MG/50 ML MG IVPB SCH ×2 (09:40→21:20)
[2021-04-11] MEDS: DAPTOMYCIN 400 MG in SODIUM CHLORIDE 50 ML IVPB SCH (09:40)
[2021-04-11] MEDS: ACETAMINOPHEN 325 MG TABLET (FP) PO PRN (09:40)
[2021-04-11] MEDS: MULTIVITAMINS (DAILY MVI) TABLET (FP) PO SCH (09:41)
[2021-04-11 12:32] LABS: PH,URINE 7.5 (5.0-8.0); URINE APPEARANCE CLEAR; URINE BILIRUBIN NEGATIVE (NEGATIVE); URINE COLOR YELLOW; URINE GLUCOSE (UA) NEGATIVE (NEGATIVE); URINE KETONE NEGATIVE (NEGATIVE); URINE LEUK ESTERASE NEGATIVE (NEGATIVE); URINE NITRITE NEGATIVE (NEGATIVE); URINE PROTEIN NEGATIVE (NEGATIVE); URINE UROBILINOGEN 0.2 mg/dL (0.2-1.0)
[2021-04-11] MEDS: ACETAMINOPHEN 1000 MG/100 ML BAG IVPB PRN (14:48)
[2021-04-11] MEDS: ENOXAPARIN NA (PORCINE) 40 MG/0.4 ML DISP.SYRIN SQ SCH (21:20)
[2021-04-12] MEDS: ACETAMINOPHEN 1000 MG/100 ML BAG IVPB PRN (00:49)
[2021-04-12] MEDS: KETAMINE HCL 200 MG/20 ML VIAL IVPUSH PRN (01:13)
[2021-04-12] MEDS ORDERED: methaDONE HCL 10 MG TABLET PO ONE (06:00)
[2021-04-12] MEDS ORDERED: methaDONE HCL 40 MG DISPERSABLE TABLET PO ONE (06:00)
[2021-04-12] MEDS: GABAPENTIN 300 MG CAPSULE PO SCH ×3 (06:22→21:15)
[2021-04-12] MEDS: MULTIVITAMINS (DAILY MVI) TABLET (FP) PO SCH (11:21)
[2021-04-12] MEDS: ENOXAPARIN NA (PORCINE) 40 MG/0.4 ML DISP.SYRIN SQ SCH ×2 (11:21→11:28)
[2021-04-12 12:47] LABS: BLOOD UREA NITROGEN 13.2 mg/dL (7-18)
[2021-04-12 12:49] LABS: CALCIUM 9.2 mg/dL (8.5-10.1); MAGNESIUM 2.3 mg/dL (1.8-2.4)
[2021-04-12 12:52] LABS: CREATININE 0.6 mg/dL (0.55-1.3)
[2021-04-12] MEDS ORDERED: KETAMINE HCL 200 MG/20 ML VIAL IVPUSH PRN ×3 (12:58→23:07)
[2021-04-12] MEDS: DAPTOMYCIN 400 MG in SODIUM CHLORIDE 50 ML IVPB SCH (14:33)
[2021-04-12] MEDS: FAMOTIDINE 20 MG/50 ML IVPB 20 MG/50 ML MG IVPB SCH ×2 (14:33→21:15)
[2021-04-12] MEDS ORDERED: KETAMINE HCL 500 MG/10 ML VIAL IV ONE (15:54)
[2021-04-12] MEDS: IBUPROFEN 800 MG/8 ML IJ IVPB PRN ×2 (17:29→22:45)
[2021-04-12 19:59] LABS: HEMATOCRIT 28.3 % (32.4-45.2); HEMOGLOBIN 8.8 GM/dL (10.7-15.3); MCHC 31.2 g/dl (32.0-36.0); MEAN CELL VOLUME 73.7 fl (80-96); MEAN PLT VOLUME 8.7 fl (7.5-11.1); PLATELET COUNT 416 10^3/uL (134-434); RBC 3.84 M/mm3 (3.60-5.2); RDW 22.4 % (11.6-15.6); WHITE BLOOD COUNT 11.9 K/mm3 (4.0-10.0)
[2021-04-12 20:08] LABS: ADD RBC MORPHOLOGY YES
[2021-04-12 20:17] LABS: ANISOCYTOSIS 3+; MACROCYTOSIS 0; OVALOCYTE 1+
[2021-04-12] MEDS: MELATONIN 5 MG TABLETS PO SCH (21:15)
[2021-04-13] MEDS: methaDONE HCL 40 MG DISPERSABLE TABLET PO SCH (05:45)
[2021-04-13] MEDS: GABAPENTIN 300 MG CAPSULE PO SCH ×3 (05:47→21:05)
[2021-04-13] MEDS: IBUPROFEN 800 MG/8 ML IJ IVPB PRN ×2 (05:55→16:40)
[2021-04-13] MEDS ORDERED: KETAMINE HCL 200 MG/20 ML VIAL IVPB PRN (08:44)
[2021-04-13 08:57] LABS: BASO % 0.7 % (0-2.0); EOS % 0.6 % (0-4.5); HEMATOCRIT 29.7 % (32.4-45.2); HEMOGLOBIN 9.1 GM/dL (10.7-15.3); LYMPH % 19.8 % (8-40); MCH 22.8 pg (25.7-33.7); MCHC 30.6 g/dl (32.0-36.0); MEAN CELL VOLUME 74.5 fl (80-96); MEAN PLT VOLUME 8.8 fl (7.5-11.1); MONO % 6.9 % (3.8-10.2); PLATELET COUNT 462 10^3/uL (134-434); RBC 3.99 M/mm3 (3.60-5.2); RDW 22.3 % (11.6-15.6); WHITE BLOOD COUNT 11.2 K/mm3 (4.0-10.0)
[2021-04-13] MEDS: ENOXAPARIN NA (PORCINE) 40 MG/0.4 ML DISP.SYRIN SQ SCH ×2 (09:11→09:20)
[2021-04-13] MEDS: MULTIVITAMINS (DAILY MVI) TABLET (FP) PO SCH (09:11)
[2021-04-13] MEDS: FAMOTIDINE 20 MG/50 ML IVPB 20 MG/50 ML MG IVPB SCH ×2 (09:12→21:05)
[2021-04-13 09:13] LABS: CALCIUM 9.8 mg/dL (8.5-10.1)
[2021-04-13 09:14] LABS: BLOOD UREA NITROGEN 17.1 mg/dL (7-18); MAGNESIUM 2.1 mg/dL (1.8-2.4)
[2021-04-13 09:18] LABS: CREATININE 0.7 mg/dL (0.55-1.3); PHOSPHOROUS 4.3 mg/dL (2.5-4.9)
[2021-04-13] MEDS: DAPTOMYCIN 400 MG in SODIUM CHLORIDE 50 ML IVPB SCH (10:18)
[2021-04-13 10:45] LABS: ANISOCYTOSIS 1+; MACROCYTOSIS 0; OVALOCYTE 1+; PLATELET ESTIMATE INCREASED; TEAR DROP CELLS 1+
[2021-04-13] MEDS: KETAMINE HCL 200 MG/20 ML VIAL IVPB PRN ×3 (14:18→22:09)
[2021-04-13] MEDS: SODIUM CHLORIDE 1,000 ML IV SCH (18:20)
[2021-04-13] MEDS: cloNIDine HCL 0.1 MG TABLET PO PRN (18:20)
[2021-04-13] MEDS: MELATONIN 5 MG TABLETS PO SCH (21:05)
[2021-04-14] MEDS: IBUPROFEN 800 MG/8 ML IJ IVPB PRN ×2 (01:05→14:40)
[2021-04-14] MEDS: SODIUM CHLORIDE 1,000 ML IV SCH (03:14)
[2021-04-14] MEDS: methaDONE HCL 40 MG DISPERSABLE TABLET PO SCH (06:05)
[2021-04-14] MEDS: GABAPENTIN 300 MG CAPSULE PO SCH ×3 (06:06→21:02)
[2021-04-14] MEDS: KETAMINE HCL 200 MG/20 ML VIAL IVPB PRN ×3 (06:08→18:30)
[2021-04-14] MEDS: ENOXAPARIN NA (PORCINE) 40 MG/0.4 ML DISP.SYRIN SQ SCH (09:54)
[2021-04-14] MEDS: FAMOTIDINE 20 MG/50 ML IVPB 20 MG/50 ML MG IVPB SCH ×2 (09:54→21:05)
[2021-04-14] MEDS: MULTIVITAMINS (DAILY MVI) TABLET (FP) PO SCH (09:54)
[2021-04-14] MEDS: cloNIDine HCL 0.1 MG TABLET PO PRN (10:06)
[2021-04-14] MEDS: DAPTOMYCIN 400 MG in SODIUM CHLORIDE 50 ML IVPB SCH (10:38)
[2021-04-14] MEDS ORDERED: ACETAMINOPHEN 325 MG TABLET (FP) PO ONE ×2 (11:45→17:00)
[2021-04-14] MEDS ORDERED: ACETAMINOPHEN 500 MG TABLET (FP) PO SCH (14:00)
[2021-04-14] MEDS ORDERED: ACETAMINOPHEN 1000 MG/100 ML BAG IVPB ONE (16:00)
[2021-04-14] MEDS: MELATONIN 5 MG TABLETS PO SCH (21:02)
[2021-04-15] MEDS: KETAMINE HCL 200 MG/20 ML VIAL IVPB PRN ×2 (00:54→08:37)
[2021-04-15] MEDS: cloNIDine HCL 0.1 MG TABLET PO PRN (00:57)
[2021-04-15] MEDS: ACETAMINOPHEN 1000 MG/100 ML BAG IVPB PRN ×2 (04:50→15:09)
[2021-04-15] MEDS: methaDONE HCL 40 MG DISPERSABLE TABLET PO SCH (06:06)
[2021-04-15] MEDS: GABAPENTIN 300 MG CAPSULE PO SCH ×3 (06:06→21:04)
[2021-04-15 08:14] LABS: BASO % 0.7 % (0-2.0); EOS % 0.3 % (0-4.5); HEMATOCRIT 27.8 % (32.4-45.2); LYMPH % 20.2 % (8-40); MCH 23.6 pg (25.7-33.7); MCHC 32.4 g/dl (32.0-36.0); MEAN PLT VOLUME 8.5 fl (7.5-11.1); MONO % 6.7 % (3.8-10.2); NEUT % 72.1 % (42.8-82.8); PLATELET COUNT 380 10^3/uL (134-434); RBC 3.81 M/mm3 (3.60-5.2); RDW 21.8 % (11.6-15.6); WHITE BLOOD COUNT 9.7 K/mm3 (4.0-10.0)
[2021-04-15 08:41] LABS: BLOOD UREA NITROGEN 14.9 mg/dL (7-18)
[2021-04-15 08:42] LABS: MAGNESIUM 2.1 mg/dL (1.8-2.4)
[2021-04-15 08:43] LABS: CALCIUM 9.5 mg/dL (8.5-10.1)
[2021-04-15 08:45] LABS: CREATININE 0.6 mg/dL (0.55-1.3)
[2021-04-15] MEDS: FAMOTIDINE 20 MG/50 ML IVPB 20 MG/50 ML MG IVPB SCH ×2 (10:00→21:04)
[2021-04-15] MEDS: MULTIVITAMINS (DAILY MVI) TABLET (FP) PO SCH (10:00)
[2021-04-15] MEDS: POLYETHYLENE GLYCOL (HEALTHYLAX) 3350 17 GM PACKET PO SCH (10:00)
[2021-04-15] MEDS: ENOXAPARIN NA (PORCINE) 40 MG/0.4 ML DISP.SYRIN SQ SCH (10:01)
[2021-04-15] MEDS: DAPTOMYCIN 400 MG in SODIUM CHLORIDE 50 ML IVPB SCH (11:32)
[2021-04-15] MEDS: MELATONIN 5 MG TABLETS PO SCH (21:05)
[2021-04-16] MEDS: KETAMINE HCL 200 MG/20 ML VIAL IVPB PRN ×3 (01:23→23:42)
[2021-04-16] MEDS: IBUPROFEN 800 MG/8 ML IJ IVPB PRN (03:26)
[2021-04-16] MEDS: GABAPENTIN 300 MG CAPSULE PO SCH ×3 (05:33→21:05)
[2021-04-16] MEDS: methaDONE HCL 40 MG DISPERSABLE TABLET PO SCH (05:34)
[2021-04-16 08:50] LABS: BASO % 0.9 % (0-2.0); EOS % 0.7 % (0-4.5); HEMATOCRIT 27.7 % (32.4-45.2); HEMOGLOBIN 8.7 GM/dL (10.7-15.3); LYMPH % 37.3 % (8-40); MCH 23.4 pg (25.7-33.7); MCHC 31.5 g/dl (32.0-36.0); MEAN CELL VOLUME 74.1 fl (80-96); MEAN PLT VOLUME 8.6 fl (7.5-11.1); MONO % 9.3 % (3.8-10.2); NEUT % 51.8 % (42.8-82.8); PLATELET COUNT 374 10^3/uL (134-434); RBC 3.74 M/mm3 (3.60-5.2); RDW 21.2 % (11.6-15.6)
[2021-04-16] MEDS: FAMOTIDINE 20 MG/50 ML IVPB 20 MG/50 ML MG IVPB SCH ×2 (09:01→21:05)
[2021-04-16] MEDS: POLYETHYLENE GLYCOL (HEALTHYLAX) 3350 17 GM PACKET PO SCH (09:01)
[2021-04-16] MEDS: MULTIVITAMINS (DAILY MVI) TABLET (FP) PO SCH (09:01)
[2021-04-16] MEDS: ENOXAPARIN NA (PORCINE) 40 MG/0.4 ML DISP.SYRIN SQ SCH (09:01)
[2021-04-16 09:16] LABS: CALCIUM 9.2 mg/dL (8.5-10.1)
[2021-04-16 09:17] LABS: BLOOD UREA NITROGEN 14.5 mg/dL (7-18); MAGNESIUM 2.1 mg/dL (1.8-2.4)
[2021-04-16 09:21] LABS: CREATININE 0.7 mg/dL (0.55-1.3); PHOSPHOROUS 4.4 mg/dL (2.5-4.9)
[2021-04-16] MEDS: DAPTOMYCIN 400 MG in SODIUM CHLORIDE 50 ML IVPB SCH (09:32)
[2021-04-16] MEDS ORDERED: ACETAMINOPHEN 1000 MG/100 ML BAG IVPB ONE (14:58)
[2021-04-16] MEDS ORDERED: oxyCODONE HCL 5 MG TABLET PO ONE (15:15)
[2021-04-16] MEDS ORDERED: oxyCODONE HCL 5 MG TABLET PO PRN (17:49)
[2021-04-16] MEDS: MELATONIN 5 MG TABLETS PO SCH (21:04)
[2021-04-16] MEDS: traZODone HCL 50 MG TABLET (FP) PO SCH (21:17)
[2021-04-17] MEDS: cloNIDine HCL 0.1 MG TABLET PO PRN (01:21)
[2021-04-17] MEDS: methaDONE HCL 40 MG DISPERSABLE TABLET PO SCH (05:12)
[2021-04-17] MEDS: GABAPENTIN 300 MG CAPSULE PO SCH ×3 (05:12→21:02)
[2021-04-17 09:23] LABS: BASO % 0.8 % (0-2.0); EOS % 0.4 % (0-4.5); HEMATOCRIT 28.6 % (32.4-45.2); HEMOGLOBIN 9.3 GM/dL (10.7-15.3); MCH 23.9 pg (25.7-33.7); MCHC 32.6 g/dl (32.0-36.0); MEAN CELL VOLUME 73.4 fl (80-96); MEAN PLT VOLUME 8.6 fl (7.5-11.1); MONO % 7.8 % (3.8-10.2); PLATELET COUNT 374 10^3/uL (134-434); RDW 21.8 % (11.6-15.6)
[2021-04-17] MEDS: MULTIVITAMINS (DAILY MVI) TABLET (FP) PO SCH (09:29)
[2021-04-17] MEDS: ENOXAPARIN NA (PORCINE) 40 MG/0.4 ML DISP.SYRIN SQ SCH (09:30)
[2021-04-17] MEDS: KETAMINE HCL 200 MG/20 ML VIAL IVPB PRN (09:33)
[2021-04-17] MEDS: FAMOTIDINE 20 MG/50 ML IVPB 20 MG/50 ML MG IVPB SCH ×2 (09:37→21:03)
[2021-04-17] MEDS: DAPTOMYCIN 400 MG in SODIUM CHLORIDE 50 ML IVPB SCH (09:37)
[2021-04-17] MEDS: POLYETHYLENE GLYCOL (HEALTHYLAX) 3350 17 GM PACKET PO SCH (09:42)
[2021-04-17 10:16] LABS: CALCIUM 9.6 mg/dL (8.5-10.1)
[2021-04-17 10:17] LABS: MAGNESIUM 2.2 mg/dL (1.8-2.4)
[2021-04-17 10:20] LABS: CREATININE 0.7 mg/dL (0.55-1.3); PHOSPHOROUS 4.7 mg/dL (2.5-4.9)
[2021-04-17] MEDS ORDERED: KETAMINE HCL 200 MG/20 ML VIAL IVPB PRN (17:00)
[2021-04-17] MEDS: MELATONIN 5 MG TABLETS PO SCH (21:03)
[2021-04-17] MEDS: SENNOSIDES 8.6MG TABLET (FP) PO SCH (21:03)
[2021-04-17] MEDS: traZODone HCL 50 MG TABLET (FP) PO SCH (21:45)
[2021-04-17] MEDS: morphine SULFATE IMMEDIATE RELEASE 30 MG TAB PO PRN (22:47)
[2021-04-17] MEDS: IBUPROFEN 800 MG/8 ML IJ IVPB PRN (22:47)
[2021-04-18] MEDS: GABAPENTIN 300 MG CAPSULE PO SCH ×3 (05:13→21:11)
[2021-04-18] MEDS: methaDONE HCL 40 MG DISPERSABLE TABLET PO SCH (05:13)
[2021-04-18] MEDS: FAMOTIDINE 20 MG/50 ML IVPB 20 MG/50 ML MG IVPB SCH ×2 (09:10→21:11)
[2021-04-18] MEDS: diphenhydrAMINE HCL 25 MG CAPSULE (FP) PO SCH ×2 (09:11→12:38)
[2021-04-18] MEDS: MULTIVITAMINS (DAILY MVI) TABLET (FP) PO SCH (09:11)
[2021-04-18 09:25] LABS: BASO % 1.1 % (0-2.0); EOS % 1.4 % (0-4.5); HEMATOCRIT 26.5 % (32.4-45.2); HEMOGLOBIN 8.6 GM/dL (10.7-15.3); MCH 23.8 pg (25.7-33.7); MCHC 32.6 g/dl (32.0-36.0); MEAN CELL VOLUME 73.1 fl (80-96); MEAN PLT VOLUME 8.6 fl (7.5-11.1); MONO % 9.4 % (3.8-10.2); NEUT % 42.1 % (42.8-82.8); PLATELET COUNT 347 10^3/uL (134-434); RBC 3.62 M/mm3 (3.60-5.2); RDW 21.3 % (11.6-15.6); WHITE BLOOD COUNT 6.2 K/mm3 (4.0-10.0)
[2021-04-18] MEDS: POLYETHYLENE GLYCOL (HEALTHYLAX) 3350 17 GM PACKET PO SCH (09:27)
[2021-04-18] MEDS: ENOXAPARIN NA (PORCINE) 40 MG/0.4 ML DISP.SYRIN SQ SCH (09:27)
[2021-04-18 09:32] LABS: CALCIUM 9.7 mg/dL (8.5-10.1)
[2021-04-18 09:33] LABS: MAGNESIUM 2.3 mg/dL (1.8-2.4)
[2021-04-18 09:36] LABS: CREATININE 0.6 mg/dL (0.55-1.3)
[2021-04-18] MEDS: DAPTOMYCIN 400 MG in SODIUM CHLORIDE 50 ML IVPB SCH (10:13)
[2021-04-18] MEDS ORDERED: diphenhydrAMINE HCL 25 MG CAPSULE (FP) PO SCH (12:00)
[2021-04-18] MEDS: morphine SULFATE IMMEDIATE RELEASE 30 MG TAB PO PRN (12:35)
[2021-04-18] MEDS: diazePAM 2 MG TABLET PO PRN (19:54)
[2021-04-18] MEDS: SENNOSIDES 8.6MG TABLET (FP) PO SCH (21:11)
[2021-04-18] MEDS: traZODone HCL 50 MG TABLET (FP) PO SCH (21:11)
[2021-04-18] MEDS: MELATONIN 5 MG TABLETS PO SCH (21:11)
[2021-04-19] MEDS: morphine SULFATE IMMEDIATE RELEASE 30 MG TAB PO PRN (03:36)
[2021-04-19] MEDS: GABAPENTIN 300 MG CAPSULE PO SCH ×3 (05:59→21:58)
[2021-04-19] MEDS: methaDONE HCL 40 MG DISPERSABLE TABLET PO SCH (05:59)
[2021-04-19] MEDS: FAMOTIDINE 20 MG/50 ML IVPB 20 MG/50 ML MG IVPB SCH ×2 (09:39→21:58)
[2021-04-19] MEDS: ENOXAPARIN NA (PORCINE) 40 MG/0.4 ML DISP.SYRIN SQ SCH (09:39)
[2021-04-19] MEDS: POLYETHYLENE GLYCOL (HEALTHYLAX) 3350 17 GM PACKET PO SCH (09:39)
[2021-04-19] MEDS: MULTIVITAMINS (DAILY MVI) TABLET (FP) PO SCH (09:39)
[2021-04-19] MEDS: diazePAM 2 MG TABLET PO PRN (09:40)
[2021-04-19 09:49] LABS: BASO % 1.3 % (0-2.0); HEMATOCRIT 25.6 % (32.4-45.2); HEMOGLOBIN 8.2 GM/dL (10.7-15.3); LYMPH % 33.8 % (8-40); MCH 23.7 pg (25.7-33.7); MCHC 32.1 g/dl (32.0-36.0); MEAN CELL VOLUME 73.8 fl (80-96); MEAN PLT VOLUME 8.4 fl (7.5-11.1); MONO % 6.1 % (3.8-10.2); NEUT % 57.8 % (42.8-82.8); PLATELET COUNT 303 10^3/uL (134-434); RBC 3.46 M/mm3 (3.60-5.2); RDW 21.4 % (11.6-15.6); WHITE BLOOD COUNT 6.1 K/mm3 (4.0-10.0)
[2021-04-19 09:57] LABS: CALCIUM 9.4 mg/dL (8.5-10.1)
[2021-04-19 09:58] LABS: BLOOD UREA NITROGEN 18.2 mg/dL (7-18)
[2021-04-19 10:01] LABS: CREATININE 0.7 mg/dL (0.55-1.3); PHOSPHOROUS 4.8 mg/dL (2.5-4.9)
[2021-04-19] MEDS: DAPTOMYCIN 400 MG in SODIUM CHLORIDE 50 ML IVPB SCH (10:19)
[2021-04-19 10:27] LABS: ANISOCYTOSIS 3+; MACROCYTOSIS 0
[2021-04-19] MEDS ORDERED: diazePAM 2 MG TABLET PO PRN (18:22)
[2021-04-19] MEDS: MELATONIN 5 MG TABLETS PO SCH (21:57)
[2021-04-19] MEDS: SENNOSIDES 8.6MG TABLET (FP) PO SCH (21:58)
[2021-04-19] MEDS: traZODone HCL 50 MG TABLET (FP) PO SCH (21:58)
[2021-04-20] MEDS: GABAPENTIN 300 MG CAPSULE PO SCH ×3 (05:59→21:26)
[2021-04-20] MEDS: methaDONE HCL 40 MG DISPERSABLE TABLET PO SCH (05:59)
[2021-04-20 08:31] LABS: BASO % 0.5 % (0-2.0); EOS % 0.5 % (0-4.5); HEMOGLOBIN 7.8 GM/dL (10.7-15.3); LYMPH % 28.7 % (8-40); MCH 23.6 pg (25.7-33.7); MCHC 32.4 g/dl (32.0-36.0); MEAN CELL VOLUME 72.8 fl (80-96); MEAN PLT VOLUME 8.3 fl (7.5-11.1); MONO % 7.5 % (3.8-10.2); NEUT % 62.8 % (42.8-82.8); PLATELET COUNT 292 10^3/uL (134-434); RDW 21.5 % (11.6-15.6); WHITE BLOOD COUNT 6.1 K/mm3 (4.0-10.0)
[2021-04-20 08:50] LABS: CALCIUM 9.1 mg/dL (8.5-10.1); MAGNESIUM 2.1 mg/dL (1.8-2.4)
[2021-04-20 08:51] LABS: BLOOD UREA NITROGEN 13.4 mg/dL (7-18)
[2021-04-20 08:53] LABS: PHOSPHOROUS 4.5 mg/dL (2.5-4.9)
[2021-04-20 08:54] LABS: CREATININE 0.7 mg/dL (0.55-1.3)
[2021-04-20] MEDS: SULFAMETHOXAZOLE/TRIMETHOPRIM 800MG/160MG D.S. TABLET PO SCH ×2 (09:18→21:26)
[2021-04-20] MEDS: FAMOTIDINE 20 MG/50 ML IVPB 20 MG/50 ML MG IVPB SCH (09:19)
[2021-04-20] MEDS: MULTIVITAMINS (DAILY MVI) TABLET (FP) PO SCH (09:19)
[2021-04-20] MEDS: ENOXAPARIN NA (PORCINE) 40 MG/0.4 ML DISP.SYRIN SQ SCH (09:27)
[2021-04-20] MEDS: POLYETHYLENE GLYCOL (HEALTHYLAX) 3350 17 GM PACKET PO SCH (09:27)
[2021-04-20] MEDS ORDERED: morphine SULFATE 10 MG/5 ML UNIT-DOSE CUP PO PRN (10:00)
[2021-04-20] MEDS: diphenhydrAMINE HCL 25 MG CAPSULE (FP) PO PRN ×2 (13:17→19:52)
[2021-04-20] MEDS: BACITRACIN 15 GM TUBE TOPICAL OINTMENT TP SCH (14:01)
[2021-04-20] MEDS ORDERED: IBUPROFEN 600 MG TABLET (FP) PO PRN (14:23)
[2021-04-20] MEDS ORDERED: LORATADINE 10 MG TABLET PO ONE (15:46)
[2021-04-20] MEDS: MINERAL OIL/PET HY-PHL TOPICAL OINTMENT 454 GM JAR TP SCH (17:59)
[2021-04-20] MEDS: traZODone HCL 50 MG TABLET (FP) PO SCH (21:26)
[2021-04-20] MEDS: MELATONIN 5 MG TABLETS PO SCH (21:26)
[2021-04-20] MEDS: SENNOSIDES 8.6MG TABLET (FP) PO SCH (21:26)
[2021-04-21] MEDS: GABAPENTIN 300 MG CAPSULE PO SCH (06:03)
[2021-04-21] MEDS: methaDONE HCL 40 MG DISPERSABLE TABLET PO SCH (06:03)
[2021-04-21] MEDS: diphenhydrAMINE HCL 25 MG CAPSULE (FP) PO PRN (06:06)
[2021-04-21 07:53] VITALS: PULSE 113; TEMP 98.2
[2021-04-21 08:15] LABS: BASO % 0.9 % (0-2.0); EOS % 1.1 % (0-4.5); HEMOGLOBIN 7.6 GM/dL (10.7-15.3); LYMPH % 38.8 % (8-40); MCH 24.1 pg (25.7-33.7); MEAN PLT VOLUME 8.4 fl (7.5-11.1); MONO % 9.6 % (3.8-10.2); NEUT % 49.6 % (42.8-82.8); PLATELET COUNT 286 10^3/uL (134-434); RBC 3.15 M/mm3 (3.60-5.2); RDW 21.5 % (11.6-15.6)
[2021-04-21 08:42] LABS: BLOOD UREA NITROGEN 15.4 mg/dL (7-18)
[2021-04-21 08:45] LABS: CREATININE 0.7 mg/dL (0.55-1.3); PHOSPHOROUS 4.8 mg/dL (2.5-4.9)
[2021-04-21 08:46] LABS: TOT PROT 7.1 g/dl (6.4-8.2)
[2021-04-21 08:47] LABS: BILIRUBIN,TOTAL 0.6 mg/dL (0.2-1)
[2021-04-21 08:51] LABS: MAGNESIUM 2.2 mg/dL (1.8-2.4)
[2021-04-21] MEDS: MINERAL OIL/PET HY-PHL TOPICAL OINTMENT 454 GM JAR TP SCH (09:02)
[2021-04-21] MEDS: SULFAMETHOXAZOLE/TRIMETHOPRIM 800MG/160MG D.S. TABLET PO SCH (09:02)
[2021-04-21] MEDS: BACITRACIN 15 GM TUBE TOPICAL OINTMENT TP SCH (09:02)
[2021-04-21] MEDS: MULTIVITAMINS (DAILY MVI) TABLET (FP) PO SCH (09:03)
[2021-04-21] MEDS: POLYETHYLENE GLYCOL (HEALTHYLAX) 3350 17 GM PACKET PO SCH (09:03)
[2021-04-21] MEDS: ENOXAPARIN NA (PORCINE) 40 MG/0.4 ML DISP.SYRIN SQ SCH (09:03)
[2021-04-21 09:16] VITALS: BP 151/96
== END 2021-04-21 09:05 | disposition home or self-care (01) | DRG 720 ==
LOC: JER 15:19 → JERBED 04-06 00:03 → J6S 04-06 05:46 → JICU 04-07 13:28 → J4S 04-13 00:54
PROVIDERS: ADMIT Hospitalist
PROC: 30233N1 Transfusion of Nonautologous Red Blood Cells into Peripheral Vein, Percutaneous Approach (ICD-10-PCS; 2021-04-06)
PROC: 0JBH0ZZ Excision of Left Lower Arm Subcutaneous Tissue and Fascia, Open Approach (ICD-10-PCS; 2021-04-07)
PROC: 0JBG0ZZ Excision of Right Lower Arm Subcutaneous Tissue and Fascia, Open Approach (ICD-10-PCS; 2021-04-07)
PROC: 3E10X8Z Irrigation of Skin and Mucous Membranes using Irrigating Substance (ICD-10-PCS; 2021-04-07)
PROC: 0X9C0ZZ Drainage of Left Elbow Region, Open Approach (ICD-10-PCS; principal; 2021-04-07 09:30)
PROC: HZ2ZZZZ Detoxification Services for Substance Abuse Treatment (ICD-10-PCS; 2021-04-08)
DX: A40.0 Sepsis due to streptococcus, group A (principal); M72.6 Necrotizing fasciitis; F14.20 Cocaine dependence, uncomplicated; F11.20 Opioid dependence, uncomplicated; D64.9 Anemia, unspecified; E87.2 Acidosis; L02.414 Cutaneous abscess of left upper limb; B95.62 Methicillin resistant Staphylococcus aureus infection as the cause of diseases classified elsewhere; T78.3XXA Angioneurotic edema, initial encounter; L03.114 Cellulitis of left upper limb; L03.113 Cellulitis of right upper limb; L08.9 Local infection of the skin and subcutaneous tissue, unspecified; F41.9 Anxiety disorder, unspecified; M60.032 Infective myositis, left forearm; F11.23 Opioid dependence with withdrawal; R00.0 Tachycardia, unspecified
CPT/HCPCS: 36415; 36430; 73060-TC-LT-FY; 73060-TC-RT-FY; 73090-TC-LT-FY; 73090-TC-RT-FY; 73201-TC-RT; 80048; 80053; 80307; 81003; 82272; 82550; 82553; 82728; 83540; 83550; 83605; 83735; 84100; 84484; 84703; 85025; 85610; 85651; 85730; 86140; 86850; 86900; 86901; 86922; 87040; 87070; 87077; 87086; 87186; 87205; 87389; 93005; 93010; 93306-TC; 93970-TC; 94760; 99285-25; C9803; J0735; J0878; P9058; Q9967; U0003; U0005

== ENCOUNTER 2022-02-01 03:31 | Emergency (ER) | payer OTHER ==
[2022-02-01] MEDS ORDERED: CLINDAMYCIN 900 MG PREMIX IVPB 900 MG/50 ML BAG IVPB ONE ×3 (03:52→04:13)
[2022-02-01] MEDS ORDERED: PIPERACILLIN/TAZOB 4.5 GM 4.5 GM in DEXTROSE 5%-WATER 100 ML IVPB ONE (03:54)
[2022-02-01] MEDS ORDERED: SODIUM CHLORIDE 1,000 ML IV STA (03:54)
[2022-02-01] MEDS ORDERED: HYDROmorphone HCl 2 MG/ML VIAL ONE ×3 (04:00→08:04)
[2022-02-01] MEDS ORDERED: HYDROmorphone HCL CARPU-JECT 2 MG/1 ML DISP.SYRIN IVPB ONE (04:03)
[2022-02-01] MEDS ORDERED: LINEZOLID 600 MG PREMIX BAG 600 MG in PREMIX 300 IV ONE (04:05)
[2022-02-01 04:09] VITALS: RESP 18; BMI 18.8
[2022-02-01] MEDS ORDERED: SODIUM CHLORIDE 0.9% 500 ML INFUS.BAG IV ONE (04:10)
[2022-02-01] MEDS ORDERED: PIPERACILLIN/TAZOB 4.5 GM 4.5 GM/100 ML BAG IVPB ONE (04:13)
[2022-02-01] MEDS ORDERED: HYDROmorphone HCL CARPU-JECT 2 MG/1 ML DISP.SYRIN IVPUSH ONE ×2 (04:31→07:59)
[2022-02-01 04:57] LABS: BASO % 0.7 % (0-2.0); EOS % 0.3 % (0-4.5); LYMPH % 10.2 % (8-40); MCHC 27.2 g/dl (32.0-36.0); MEAN CELL VOLUME 56.4 fl (80-96); MEAN PLT VOLUME 8.6 fl (7.5-11.1); MONO % 4.8 % (3.8-10.2); PLATELET COUNT 725 10^3/uL (134-434); RBC 3.36 M/mm3 (3.60-5.2); RDW 20.3 % (11.6-15.6); WHITE BLOOD COUNT 19.7 K/mm3 (4.0-10.0)
[2022-02-01 05:01] LABS: INR 1.37 (0.83-1.09); PROTHROMBIN TIME (PATIENT) 15.8 SEC (9.7-13.0)
[2022-02-01 05:04] LABS: ACTIVATED PTT 30.6 SECONDS (25.2-36.5)
[2022-02-01 05:14] LABS: CALCIUM 8.5 mg/dL (8.5-10.1)
[2022-02-01 05:16] LABS: ALBUMIN 1.9 g/dl (3.4-5.0); BLOOD UREA NITROGEN 10.5 mg/dL (7-18)
[2022-02-01 05:18] LABS: CREATININE 0.6 mg/dL (0.55-1.3)
[2022-02-01 05:19] LABS: BILIRUBIN,TOTAL 0.3 mg/dL (0.2-1); TOT PROT 7.7 g/dl (6.4-8.2)
[2022-02-01 05:30] LABS: MCH 15.4 pg (25.7-33.7)
[2022-02-01 05:31] LABS: HEMOGLOBIN 5.2 GM/dL (10.7-15.3)
[2022-02-01 06:00] LABS: LACTIC ACID 2.7 mmol/L (0.4-2.0)
[2022-02-01] MEDS ORDERED: morphine CARPU-JECT 2 MG/1 ML DISP.SYRIN IVPUSH ONE (07:13)
[2022-02-01 08:14] VITALS: BP 114/71; PULSE 124; TEMP 98.8
[2022-02-01 10:31] LABS: ANISOCYTOSIS 1+; MACROCYTOSIS 0; OVALOCYTE 1+
[2022-02-01 10:45] LABS: ERYTHROCYTE SEDIMENTATION RATE > 140 mm/hr (0-20)
== END 2022-02-01 08:29 | disposition short-term general hospital (02) ==
LOC: JER 03:31
PROC: 3E033GC Introduction of Other Therapeutic Substance into Peripheral Vein, Percutaneous Approach (ICD-10-PCS; principal; 2022-02-01)
DX: L08.89 Other specified local infections of the skin and subcutaneous tissue (principal); F19.10 Other psychoactive substance abuse, uncomplicated
CPT/HCPCS: 0241U-QW; 36415; 73090-TC-RT-FY; 73130-TC-RT-FY; 80053; 83605; 85025; 85610; 85651; 85730; 86140; 86850; 86900; 86901; 86922; 87040; 87070; 87186; 87205; 99285-25

== ENCOUNTER 2022-03-15 05:11 | Observation (INO) | payer OTHER ==
[2022-03-15 05:27] VITALS: BMI 20.5
[2022-03-15] MEDS ORDERED: BENZTROPINE MESYLATE 2 MG/2 ML INJECTION IM ONE (05:54)
[2022-03-15] MEDS ORDERED: DALBAVANCIN HCL 1,500 MG in DEXTROSE 5%-WATER - 500 ML IVPB ONE (06:06)
[2022-03-15] MEDS ORDERED: DALBAVANCIN HCL 500 MG VIAL (RESTRICTED TO ID ONLY) IVPB ONE ×2 (06:20→10:38)
[2022-03-15] MEDS ORDERED: CLINDAMYCIN 600MG PREMIX IVPB 600 MG/50 ML BAG IVPB ONE ×2 (06:27)
[2022-03-15] MEDS: CLINDAMYCIN IVPB 300 MG in DEXTROSE 5%-WATER - 48 ML IVPB ONE ×2 (06:29→06:39)
[2022-03-15] MEDS ORDERED: MIDAZOLAM HCL 2 MG/2 ML SINGLE DOSE VIAL IVPUSH ONE (06:41)
[2022-03-15] MEDS ORDERED: MIDAZOLAM HCL 2 MG/2 ML SINGLE DOSE VIAL ONE ×2 (06:47→07:38)
[2022-03-15 06:51] LABS: BASO % 0.7 % (0-2.0); EOS % 0.5 % (0-4.5); HEMATOCRIT 33.2 % (32.4-45.2); HEMOGLOBIN 10.5 GM/dL (10.7-15.3); LYMPH % 22.8 % (8-40); MCH 25.4 pg (25.7-33.7); MCHC 31.6 g/dl (32.0-36.0); MEAN CELL VOLUME 80.3 fl (80-96); MEAN PLT VOLUME 8.9 fl (7.5-11.1); MONO % 11.4 % (3.8-10.2); NEUT % 64.6 % (42.8-82.8); PLATELET COUNT 260 10^3/uL (134-434); RBC 4.14 M/mm3 (3.60-5.2); RDW 15.6 % (11.6-15.6); WHITE BLOOD COUNT 9.2 K/mm3 (4.0-10.0)
[2022-03-15 07:12] LABS: CHLORIDE 102 mmol/L (98-107); SODIUM 137 mmol/L (136-145)
[2022-03-15 07:13] LABS: CALCIUM 9.3 mg/dL (8.5-10.1)
[2022-03-15 07:14] LABS: ALBUMIN 3.6 g/dl (3.4-5.0); ANION GAP 6 MMOL/L (8-16); BLOOD UREA NITROGEN 20.7 mg/dL (7-18); CO2 28 mmol/L (21-32); GLUCOSE,RANDOM 71 mg/dL (74-106)
[2022-03-15 07:18] LABS: SGOT/AST 60 U/L (15-37); SGPT/ALT 31 U/L (13-61)
[2022-03-15 07:19] LABS: BILIRUBIN,TOTAL 0.6 mg/dL (0.2-1); TOT PROT 7.7 g/dl (6.4-8.2)
[2022-03-15 07:21] LABS: ALK PHOS 147 U/L (45-117)
[2022-03-15] MEDS ORDERED: LORazepam 2 MG/ML SDV VIAL IM ONE (08:45)
[2022-03-15 13:14] LABS: VENOUS BASE EXCESS -1.1 mmol/L (-2-2); VENOUS O2 SATURATION 94.1 % (70-80); VENOUS PCO2 36.1 mmHg (38-52); VENOUS PH 7.422 (7.310-7.410)
[2022-03-15] MEDS ORDERED: D5-1/2NS+20 MEQ KCL - 20 MEQ/1,000 ML INFUS.BAG IV SCH (13:30)
[2022-03-15] MEDS: HEPARIN NA (PORCINE) 5,000 UNITS/ML 1ML VIAL SQ SCH ×2 (15:29→22:37)
[2022-03-15] MEDS: ACETAMINOPHEN 325 MG TABLET (FP) PO PRN (17:43)
[2022-03-15] MEDS ORDERED: ACETAMINOPHEN 325 MG TABLET (FP) ONE (17:43)
[2022-03-16 05:40] VITALS: PULSE 96
[2022-03-16] MEDS: HEPARIN NA (PORCINE) 5,000 UNITS/ML 1ML VIAL SQ SCH (06:28)
[2022-03-16] MEDS ORDERED: BENZOCAINE/MENTH/CETYLPYRD CL 1 EACH LOZENGE MM PRN (09:26)
[2022-03-16 09:43] VITALS: BP 116/71; RESP 17
[2022-03-16 10:02] LABS: BASO % 0.7 % (0-2.0); EOS % 0.8 % (0-4.5); HEMATOCRIT 30.8 % (32.4-45.2); MCH 25.9 pg (25.7-33.7); MCHC 32.5 g/dl (32.0-36.0); MEAN CELL VOLUME 79.8 fl (80-96); MEAN PLT VOLUME 8.5 fl (7.5-11.1); MONO % 8.7 % (3.8-10.2); NEUT % 59.8 % (42.8-82.8); PLATELET COUNT 279 10^3/uL (134-434); RBC 3.86 M/mm3 (3.60-5.2); RDW 16.3 % (11.6-15.6); WHITE BLOOD COUNT 6.2 K/mm3 (4.0-10.0)
[2022-03-16] MEDS: ACETAMINOPHEN 325 MG TABLET (FP) PO PRN (10:04)
[2022-03-16] MEDS ORDERED: methaDONE HCL 10 MG TABLET PO ONE (10:15)
[2022-03-16 10:53] LABS: ALBUMIN 3.1 g/dl (3.4-5.0); CALCIUM 9.4 mg/dL (8.5-10.1)
[2022-03-16 10:54] LABS: BLOOD UREA NITROGEN 8.4 mg/dL (7-18)
[2022-03-16 10:58] LABS: CREATININE 0.5 mg/dL (0.55-1.3)
[2022-03-16 10:59] LABS: BILIRUBIN,TOTAL 0.4 mg/dL (0.2-1)
[2022-03-16] MEDS ORDERED: IBUPROFEN 800 MG/8 ML IJ IVPB PRN (11:34)
[2022-03-16 13:33] VITALS: TEMP 98.1
== END 2022-03-16 13:24 | disposition left against medical advice (07) ==
LOC: JER 05:11 → JERBED 11:20 → INTOOBSV 13:22 → OBSVTOIN 13:22 → J5S 20:23
PROVIDERS: ADMIT Internal Medicine; ATTEND Internal Medicine
PROC: 3E03329 Introduction of Other Anti-infective into Peripheral Vein, Percutaneous Approach (ICD-10-PCS; principal; 2022-03-15)
PROC: 3E023GC Introduction of Other Therapeutic Substance into Muscle, Percutaneous Approach (ICD-10-PCS; 2022-03-15)
PROC: 3E023NZ Introduction of Analgesics, Hypnotics, Sedatives into Muscle, Percutaneous Approach (ICD-10-PCS; 2022-03-15)
PROC: 3E0337Z Introduction of Electrolytic and Water Balance Substance into Peripheral Vein, Percutaneous Approach (ICD-10-PCS; 2022-03-15)
DX: R41.82 Altered mental status, unspecified (principal); L03.114 Cellulitis of left upper limb; F19.921 Other psychoactive substance use, unspecified with intoxication with delirium; F41.9 Anxiety disorder, unspecified; S41.102A Unspecified open wound of left upper arm, initial encounter; S51.802A Unspecified open wound of left forearm, initial encounter; S51.801A Unspecified open wound of right forearm, initial encounter; R25.8 Other abnormal involuntary movements; D50.9 Iron deficiency anemia, unspecified; F17.210 Nicotine dependence, cigarettes, uncomplicated; Z88.1 Allergy status to other antibiotic agents
CPT/HCPCS: 0241U-QW; 36415; 70450-TC; 80053; 80307; 82550; 82553; 82803; 82962; 83605; 84443; 84702; 85025; 86850; 86900; 86901; 87040; 96361; 96365; 96367; 96372; 96375; 99285-25; G0378; J0875; J1644